=== PATIENT | male | born 1945 | race Caucasian/White ===

== ENCOUNTER 2017-06-11 14:40 | Emergency (ER) | payer MEDICARE, OTHER ==
[2017-06-11] MEDS ORDERED: Ketorolac 30 MG/ML SDV ONE (15:15)
[2017-06-11] MEDS ORDERED: Ketorolac 30 MG/ML SDV IVPUSH ONE (15:23)
--- NOTE | 2017-06-11 15:30 | EDM.PDOC ---
[id number] 4d LT FLANK PAIN Time Seen by Provider: 06/11/17 15:05 Source of Information: Reports: Patient, Provider History Limitations: Reports: No Limitations - History of Present Illness INITIAL COMMENTS - FREE TEXT/NARRATIVE: 71-year-old male with apparently a past history of renal stones developed a fairly sudden onset of left flank pain at 4 AM. He's had nausea but no vomiting , the pain is been persistent and throbbing so he went into the clinic today. They wanted to order a CT scan but he wanted pain control first, they said they were unable to do that so they sent him to the emergency room. He is stable but uncomfortable. He looks pale. [facility] is a [facility]" Onset: Sudden Duration: Hour(s): (11 hours ago) Location: Reports: Back (Left flank) Left Flank Pain Score (Numeric/FACES): 8 - Related Data Allergies Allergy/AdvReac Type Severity Reaction Status Date / Time No Known Allergies Allergy Verified 05/28/15 19:24 Home Meds: Home Meds Albuterol Sulfate [Albuterol Sulfate HFA] 2 ea IH ASDIRECTED 08/02/14 [History] ClonazePAM [KlonoPIN] 1 mg PO ASDIRECTED PRN 08/02/14 [History] Methocarbamol 750 mg PO TID 08/02/14 [History] Potassium Chloride 20 meq PO BID 08/02/14 [History] Ranitidine [Zantac] 150 mg PO BID 08/02/14 [History] Simvastatin [Zocor] 5 mg PO DAILY 08/02/14 [History] Gabapentin [Neurontin] 300 mg PO TID 05/28/15 [History] Hydrochlorothiazide 25 mg PO DAILY 05/28/15 [History] Hydrocodone/Acetaminophen [[place] 10-325] 1 tab PO Q8H PRN 05/28/15 [History] Lisinopril 10 mg PO PCBREAKFAST 05/28/15 [History] Sertraline [Zoloft] 450 tab PO DAILY 05/28/15 [History] Ca Carbonate/Vitamin D3/Vit K [Calcium + D Soft Chewable Tab] 2 tab PO BID 06/11 [History] Calcium Carbonate [Tums] 200 mg PO ASDIRECTED 06/11/17 [History] Cholecalciferol (Vitamin D3) [Vitamin D3] 1,000 unit PO BID 06/11/17 [History] Finasteride 5 mg PO DAILY 06/11/17 [History] Fluticasone/Salmeterol [Advair Diskus 500-50] 1 puff INH Q12H 06/11/17 [History] NIFEdipine [Nifedipine ER] 60 mg PO BID 06/11/17 [History] Tamsulosin HCl [Flomax] 0.4 mg PO DAILY 06/11/17 [History] hydrOXYzine HCl [hydrOXYzine] 50 mg PO ASDIRECTED PRN 06/11/17 [History] Past Medical History HEENT History: Reports: Hard of Hearing, Impaired Vision Cardiovascular History: Reports: Heart Failure, Hypertension Other Respiratory History: Surgery llower lung removal. Genitourinary History: Reports: Renal Disease Other Genitourinary History: loss of bladder control. Musculoskeletal History: Reports: Osteoarthritis Endocrine/Metabolic History: Reports: Diabetes, Type II Social & Family History - Tobacco Use Smoking Status *Q: Never Smoker Years of Tobacco use: 45 Used Tobacco, but Quit: Yes Month Tobacco Last Used: april Second Hand Smoke Exposure: No - Caffeine Use Caffeine Use: Reports: None - Alcohol Use Days Per Week of Alcohol Use: 0 - Recreational Drug Use Recreational Drug Use: No ED ROS GENERAL - Review of Systems Review Of Systems: See Below Constitutional: Denies: Fever HEENT: Reports: No Symptoms Respiratory: Denies: Shortness of Breath, Pleuritic Chest Pain Cardiovascular: Denies: Chest Pain, Palpitations GI/Abdominal: Reports: Abdominal Pain (Some pain radiates around to the anterior abdomen) : Reports: Flank Pain. Denies: Frequency Neurological: Denies: Headache Psychiatric: Reports: No Symptoms ED EXAM, GENERAL - Physical Exam Exam: See Below Exam Limited By: No Limitations General Appearance: Alert, Anxious, Mild Distress (Patient was uncomfortable on presentation) Respiratory/Chest: No Respiratory Distress, Lungs Clear, Decreased Breath Sounds (Diffuse decreased breath sounds, chronic finding) Cardiovascular: Regular Rate, Rhythm GI/Abdominal: Non-Tender Neurological: Alert Psychiatric: Anxious Skin Exam: Warm, Dry Course - Vital Signs Last Recorded V/S: Last Vital Signs Temp 98.6 F 06/11/17 14:57 Pulse 85 06/11/17 16:37 Resp 20 06/11/17 16:37 BP 130/81 06/11/17 16:37 Pulse Ox 93 L 06/11/17 16:37 - Orders/Labs/Meds Labs: Laboratory Tests 06/11/17 06/11/17 Range/Units 16:02 16:02 WBC 11.6 H (4.5-11.0) K/uL RBC 4.80 (4.30-5.90) M/uL Hgb 14.3 D (12.0-15.0) g/dL Hct 41.7 (40.0-54.0) % MCV 87 (80-98) fL MCH 30 (27-31) pg MCHC 34 (32-36) % Plt Count 291 (150-400) K/uL Neut % (Auto) 87 H (36-66) % Lymph % (Auto) 7 L (24-44) % Rich % (Auto) 6 (2-6) % Eos % (Auto) 0 L (2-4) % Baso % (Auto) 0 (0-1) % Sodium 140 (140-148) mmol/L Potassium 3.7 (3.6-5.2) mmol/L Chloride 104 (100-108) mmol/L Carbon Dioxide 27 (21-32) mmol/L Anion Gap 8.9 (5.0-14.0) mmol/L BUN 19 H (7-18) mg/dL Creatinine 2.1 H D (0.8-1.3) mg/dL Est Cr Clr Drug Dosing 34.36 mL/min Estimated GFR (MDRD) 31 L (>60) Glucose 121 H (74-106) mg/dL Calcium 10.1 (8.5-10.1) mg/dL Meds: Medications Discontinued Medications Generic Name Dose Route Start Last Admin Trade Name Freq PRN Reason Stop Dose Admin Ketorolac Tromethamine Confirm 06/11/17 15:15 06/11/17 15:30 Toradol Administered 06/11/17 15:16 Not Given Dose 30 mg .ROUTE .STK-MED ONE Ketorolac Tromethamine 30 mg 06/11/17 15:23 06/11/17 15:30 Toradol IVPUSH 06/11/17 15:24 30 mg ONETIME ONE Administration - Re-Assessments/Exams Free Text/Narrative Re-Assessment/Exam: 06/11/17 15:29 An IV was started, the patient was given 30 mg of Toradol IV and he was sent back for an abdomen and pelvis CT without contrast. 06/11/17 15:53 After 30 mg of Toradol the patient had markedly less pain. 06/11/17 16:38 CT scan confirmed a 6 mm stone in the proximal left ureter. The patient's symptoms were almost gone after the scan. He wanted to try to pass this as an outpatient, so he was given 10 doses of Toradol to take twice a day through the weekend. His white count was 11,500, creatinine 2.1, copies of his labs and CT scan were given to the patient as he was [facility] [place] [facility] wors[facility]. I told him to make sure he takes the lab and x- ray with so they can compare if necessary. Departure - Departure Time of Disposition: 17:05 Disposition: Home, Self-Care 01 Condition: Fair Clinical Impression: Renal colic on left side, Left nephrolithiasis, COLD, Chronic obstructive lung disease - Discharge Information Instructions: Renal Colic, [id number], Kidney Stones, [id number], Chronic Obstructive Pulmonary Disease, [id number] Referrals: PCP,None [Primary Care Provider] - Forms: ED Department Discharge Care Plan Goals: Continue your current medications, and take ketorolac 10 mg twice daily until the stone passes but no more than the next 5 days. Return to ER or go directly to [place] if pain persists, especially if it worsens or you develop a fever.
[2017-06-11 16:38] VITALS: BP 130/81
== END 2017-06-11 17:04 | disposition home or self-care (01) ==
LOC: JP.ED 14:40
DX: N13.2 Hydronephrosis with renal and ureteral calculous obstruction (principal); N23 Unspecified renal colic; J00 Acute nasopharyngitis [common cold]; J44.9 Chronic obstructive pulmonary disease, unspecified; I11.0 Hypertensive heart disease with heart failure; I50.9 Heart failure, unspecified; E11.9 Type 2 diabetes mellitus without complications; M19.90 Unspecified osteoarthritis, unspecified site; Z98.890 Other specified postprocedural states; Z79.899 Other long term (current) drug therapy
CPT/HCPCS: 36415; 74176; 80048; 85025; 96374; 99284; J1885

== ENCOUNTER 2018-11-29 12:49 | Inpatient (IN) | payer MEDICARE ==
[~2018-11-29 12:49] MED LIST: Naloxone 0.4 MG/ML SDV ONE
[2018-11-29] MEDS ORDERED: Succinylcholine 200 MG/10 ML MDV ONE (12:52)
--- NOTE | 2018-11-29 12:59 | EDM.PDOC ---
ED HPI GENERAL MEDICAL PROBLEM - General Stated Complaint: [facility] Time Seen by Provider: 11/29/18 12:49 Source of Information: Reports: EMS History Limitations: Reports: Altered Mental Status, Respiratory Distress - History of Present Illness INITIAL COMMENTS - FREE TEXT/NARRATIVE: 73-year-old male found unresponsive on the toilet, hypoxic and cyanotic with decreased respiratory effort. EMS provided a DuoNeb in route which improved his saturations in mental status. He was still very obtunded on arrival to the emergency room. He would respond to painful stimulus only. A brief review of his home health notes indicates he is a full code, is on chronic narcotics and has Narcan as a when necessary med, so he was given 0.4 mg of IV Narcan. Also an urgent CT without contrast of his head was obtained. More history or review of systems is unobtainable. - Related Data Allergies Allergy/AdvReac Type Severity Reaction Status Date / Time horse serum proteins Allergy Rash Uncoded 11/29/18 13:32 Home Meds: Home Meds Albuterol Sulfate [Albuterol Sulfate HFA] 2 ea IH ASDIRECTED 08/02/14 [History] Methocarbamol 750 mg PO TID 08/02/14 [History] Potassium Chloride 20 meq PO BID 08/02/14 [History] Ranitidine [Zantac] 150 mg PO BID 08/02/14 [History] Simvastatin [Zocor] 5 mg PO DAILY 08/02/14 [History] Gabapentin [Neurontin] 300 mg PO TID 05/28/15 [History] Hydrochlorothiazide 25 mg PO DAILY 05/28/15 [History] Hydrocodone/Acetaminophen [[place] 10-325] 1 tab PO Q8H PRN 05/28/15 [History] Sertraline [Zoloft] 450 tab PO DAILY 05/28/15 [History] Ca Carbonate/Vitamin D3/Vit K [Calcium + D Soft Chewable Tab] 2 tab PO BID 06/11 [History] Calcium Carbonate [Tums] 200 mg PO ASDIRECTED 06/11/17 [History] Cholecalciferol (Vitamin D3) [Vitamin D3] 1,000 unit PO BID 06/11/17 [History] Finasteride 5 mg PO DAILY 06/11/17 [History] Fluticasone/Salmeterol [Advair Diskus 500-50] 1 puff INH Q12H 06/11/17 [History] NIFEdipine [Nifedipine ER] 60 mg PO BID 06/11/17 [History] Tamsulosin HCl [Flomax] 0.4 mg PO DAILY 06/11/17 [History] hydrOXYzine HCl [hydrOXYzine] 50 mg PO ASDIRECTED PRN 06/11/17 [History] Furosemide [Lasix] 10/09/18 [History] Naloxone HCl [Narcan] 10/09/18 [History] Omeprazole 10/09/18 [History] busPIRone [Buspar] 10/09/18 [History] guaiFENesin [Siltussin SA] 10/09/18 [History] Past Medical History HEENT History: Reports: Hard of Hearing, Impaired Vision Cardiovascular History: Reports: Heart Failure, Hypertension Other Respiratory History: Surgery llower lung removal. Genitourinary History: Reports: Renal Disease Other Genitourinary History: loss of bladder control. Musculoskeletal History: Reports: Osteoarthritis Endocrine/Metabolic History: Reports: Diabetes, Type II Social & Family History - Caffeine Use Caffeine Use: Reports: None ED ROS GENERAL - Review of Systems Review Of Systems: Unable To Obtain ED EXAM, GENERAL - Physical Exam Exam: See Below Exam Limited By: Altered Mental Status General Appearance: Lethargic, Other (Patient was responsive to painful stimulus but was unable to answer questions, was unaware of his surroundings) Eye Exam: Right Eye: PERRL (Pupils were equal and reactive, not pinpoint) Throat/Mouth: Other (No upper teeth) Head: Atraumatic Respiratory/Chest: Wheezing (Diffuse inspiratory and expiratory wheezes were present with bronchial rales bilaterally) Cardiovascular: Regular Rate, Rhythm, Tachycardia, Other (Heart sounds are distant) GI/Abdominal: Soft, Non-Tender, Other (No involuntary guarding) Extremities: Pedal Edema (1+ symmetric edema below the knees through the ankles and feet) Neurological: Inattentive, Unresponsive Skin Exam: Warm, Dry Course - Vital Signs Last Recorded V/S: Last Vital Signs Temp 96.7 F 11/29/18 16:00 Pulse 68 11/29/18 16:00 Resp 16 11/29/18 16:00 BP 130/81 11/29/18 16:00 Pulse Ox 91 L 11/29/18 16:00 - Orders/Labs/Meds Orders: Active Orders 24 hr Category Date Time Status Dietary Supplements [RC] BIDMEALS Care 11/29/18 13:27 Inactive Insert Urinary Catheter [OM.PC] Stat Care 11/29/18 13:44 Ordered Urinary Catheter Assessment [RC] ASDIRECTED Care 11/29/18 13:44 Active CULTURE RESPIRATORY + SMEAR [RM] Stat Lab 11/29/18 13:38 Results EKG 12 Lead [EK] Routine Ther 11/29/18 13:33 Stop Req Medication Orders Acetaminophen (Tylenol) 650 mg RECTAL Q4H PRN PRN Reason: Mild pain/fever Albuterol (Proventil Neb Soln) 2.5 mg NEB Q4H PRN PRN Reason: Shortness Of Breath/wheezing Albuterol/Ipratropium (Duoneb 3.0-0.5 Mg/3 Ml) 3 ml NEB QIDRT EVIN Last Admin: 11/29/18 16:09 Dose: 3 ml Enoxaparin Sodium (Lovenox) 40 mg SUBCUT DAILY [facility] Fentanyl (Sublimaze) 25 mcg IVPUSH Q2H PRN PRN Reason: Pain Ceftriaxone Sodium 2 gm/ (Sodium Chloride) 50 mls @ 100 mls/hr IV Q24H EVIN Ceftriaxone Sodium 1 gm/ (Sodium Chloride) 50 mls @ 100 mls/hr IV ONETIME ONE Stop: 11/30/18 01:29 Levofloxacin/Dextrose 750 mg/ (Premix) 150 mls @ 100 mls/hr IV Q48H [facility] Sodium Chloride (Normal Saline) 1,000 mls @ 125 mls/hr IV ASDIRECTED [facility] Propofol (Diprivan 100 Ml) 100 mls @ 2.898 mls/hr IV TITRATE EVIN; Protocol Last Admin: 11/29/18 15:49 Dose: 60 mcg/kg/min, 34.781 mls/hr Lorazepam (Ativan) 1 mg IVPUSH Q4H PRN PRN Reason: Agitation Methylprednisolone Sodium Succinate (Solu-Medrol) 62.5 mg IVPUSH Q8H EVIN Ondansetron HCl (Zofran Odt) 4 mg PO Q6H PRN PRN Reason: Nausea able to take PO Ondansetron HCl (Zofran) 4 mg IV Q6H PRN PRN Reason: Nausea/Vomiting Pantoprazole Sodium (Protonix Iv) 40 mg IV Q24H [facility] Last Admin: 11/29/18 16:08 Dose: 40 mg Polyethylene Glycol (Miralax) 17 gm PO DAILY PRN PRN Reason: Constipation Labs: Laboratory Tests 11/29/18 11/29/18 11/29/18 Range/Units 13:00 13:00 13:12 WBC 12.6 H (4.5-11.0) K/uL RBC 4.59 (4.30-5.90) M/uL Hgb 13.7 (12.0-15.0) g/dL Hct 41.8 (40.0-54.0) % MCV 91 (80-98) fL MCH 30 (27-31) pg MCHC 33 (32-36) % Plt Count 356 (150-400) K/uL Neut % (Auto) 81 H (36-66) % Lymph % (Auto) 7 L (24-44) % [place] % (Auto) 12 H (2-6) % Eos % (Auto) 1 L (2-4) % Baso % (Auto) 0 (0-1) % Puncture Site Lt radial ABG pH 7.253 L (7.350-7.450) ABG pCO2 65.7 H (35.0-42.0) mmHg ABG pO2 285.0 H (75.0-100.0) mmHg ABG HCO3 28.0 H (22.0-26.0) mmol/L ABG Total CO2 25.6 (23.0-27.0) mmol/L ABG O2 Saturation 99.5 H (95.0-98.0) % ABG O2 Content 20.0 (15.0-23.0) %vol ABG Base Excess -0.5 mm/L ABG Hemoglobin 14.1 (13.5-18.0) g/dL ABG Oxyhemoglobin 98.1 % ABG Carboxyhemoglobin 0.9 (0.0-1.6) % ABG Methemoglobin 0.5 % Harris Test Passed O2 Delivery Device Nasal cannula Oxygen Flow Rate 3 L Sodium (140-148) mmol/L Potassium (3.6-5.2) mmol/L Chloride (100-108) mmol/L Carbon Dioxide (21-32) mmol/L Anion Gap (5.0-14.0) mmol/L BUN (7-18) mg/dL Creatinine (0.8-1.3) mg/dL Est Cr Clr Drug Dosing mL/min Estimated GFR (MDRD) (>60) Glucose (74-106) mg/dL Calcium (8.5-10.1) mg/dL Total Bilirubin (0.2-1.0) mg/dL AST (15-37) U/L ALT (12-78) U/L Alkaline Phosphatase (46-116) U/L Troponin I < 0.017 (0.000-0.056) ng/mL Total Protein (6.4-8.2) g/dL Albumin (3.4-5.0) g/dL Globulin (2.3-3.5) g/dL Albumin/Globulin Ratio (1.2-2.2) Urine Color Urine Appearance Urine pH (4.5-8.0) Ur Specific [place] (1.008-1.030) Urine Protein (NEGATIVE) mg/dL Urine Glucose (UA) (NEGATIVE) mg/dL Urine Ketones (NEGATIVE) mg/dL Urine Occult Blood (NEGATIVE) Urine Nitrite (NEGAITVE) Urine Bilirubin (NEGATIVE) Urine Urobilinogen (NORMAL) mg/dL Ur Leukocyte Esterase (NEGATIVE) Urine RBC (0-5) Urine WBC (0-5) Ur Epithelial Cells Amorphous Sediment Urine Bacteria Urine Mucus Urine Other 11/29/18 11/29/18 Range/Units 13:12 13:23 WBC (4.5-11.0) K/uL RBC (4.30-5.90) M/uL Hgb (12.0-15.0) g/dL Hct (40.0-54.0) % MCV (80-98) fL MCH (27-31) pg MCHC (32-36) % Plt Count (150-400) K/uL Neut % (Auto) (36-66) % Lymph % (Auto) (24-44) % [place] % (Auto) (2-6) % Eos % (Auto) (2-4) % Baso % (Auto) (0-1) % Puncture Site ABG pH (7.350-7.450) ABG pCO2 (35.0-42.0) mmHg ABG pO2 (75.0-100.0) mmHg ABG HCO3 (22.0-26.0) mmol/L ABG Total CO2 (23.0-27.0) mmol/L ABG O2 Saturation (95.0-98.0) % ABG O2 Content (15.0-23.0) %vol ABG Base Excess mm/L ABG Hemoglobin (13.5-18.0) g/dL ABG Oxyhemoglobin % ABG Carboxyhemoglobin (0.0-1.6) % ABG Methemoglobin % Harris Test O2 Delivery Device Oxygen Flow Rate L Sodium 140 (140-148) mmol/L Potassium 4.5 (3.6-5.2) mmol/L Chloride 100 (100-108) mmol/L Carbon Dioxide 31 (21-32) mmol/L Anion Gap 8.9 (5.0-14.0) mmol/L BUN 20 H (7-18) mg/dL Creatinine 1.6 H (0.8-1.3) mg/dL Est Cr Clr Drug Dosing 45.13 mL/min Estimated GFR (MDRD) 43 L (>60) Glucose 88 (74-106) mg/dL Calcium 9.0 D (8.5-10.1) mg/dL Total Bilirubin 0.4 (0.2-1.0) mg/dL AST 30 (15-37) U/L ALT 29 (12-78) U/L Alkaline Phosphatase 99 (46-116) U/L Troponin I (0.000-0.056) ng/mL Total Protein 8.1 (6.4-8.2) g/dL Albumin 2.9 L (3.4-5.0) g/dL Globulin 5.2 H (2.3-3.5) g/dL Albumin/Globulin Ratio 0.6 L (1.2-2.2) Urine Color Yellow Urine Appearance Slightly cloudy Urine pH 5.0 (4.5-8.0) Ur Specific [place] 1.025 (1.008-1.030) Urine Protein 500 H (NEGATIVE) mg/dL Urine Glucose (UA) Normal (NEGATIVE) mg/dL Urine Ketones 50 H (NEGATIVE) mg/dL Urine Occult Blood Moderate (NEGATIVE) Urine Nitrite Negative (NEGAITVE) Urine Bilirubin Negative (NEGATIVE) Urine Urobilinogen Normal (NORMAL) mg/dL Ur Leukocyte Esterase Negative (NEGATIVE) Urine RBC 5-10 H (0-5) Urine WBC 0-5 (0-5) Ur Epithelial Cells Not seen Amorphous Sediment Moderate Urine Bacteria Not seen Urine Mucus Not seen Urine Other Meds: Medications Generic Name Dose Route Start Last Admin Trade Name Freq PRN Reason Stop Dose Admin Acetaminophen 650 mg 11/29/18 15:02 Tylenol RECTAL Q4H PRN Mild pain/fever Albuterol 2.5 mg 11/29/18 15:02 Proventil Neb Soln NEB Q4H PRN Shortness Of Breath/wheezing Albuterol/Ipratropium 3 ml 11/29/18 16:00 11/29/18 16:09 Duoneb 3.0-0.5 Mg/3 Ml NEB 3 ml QIDRT EVIN Administration Enoxaparin Sodium 40 mg 11/30/18 09:00 Lovenox SUBCUT DAILY [facility] Fentanyl 25 mcg 11/29/18 15:02 Sublimaze IVPUSH Q2H PRN Pain Ceftriaxone Sodium 2 gm/ 50 mls @ 100 mls/hr 11/30/18 13:00 Sodium Chloride IV Q24H EVIN Ceftriaxone Sodium 1 gm/ 50 mls @ 100 mls/hr 11/30/18 01:00 Sodium Chloride IV 11/30/18 01:29 ONETIME ONE Levofloxacin/Dextrose 750 mg/ 150 mls @ 100 mls/hr 12/01/18 14:00 Premix IV Q48H [facility] Sodium Chloride 1,000 mls @ 125 mls/hr 11/29/18 15:02 Normal Saline IV ASDIRECTED [facility] Propofol 100 mls @ 2.898 mls/hr 11/29/18 15:45 11/29/18 15:49 Diprivan 100 Ml IV 60 mcg/kg/min TITRATE EVIN 34.781 mls/hr Administration Protocol 5 MCG/KG/MIN Lorazepam 1 mg 11/29/18 15:02 Ativan IVPUSH Q4H PRN Agitation Methylprednisolone Sodium Succinate 62.5 mg 11/29/18 22:00 Solu-Medrol IVPUSH Q8H EVIN Ondansetron HCl 4 mg 11/29/18 15:02 Zofran Odt PO Q6H PRN Nausea able to take PO Ondansetron HCl 4 mg 11/29/18 15:02 Zofran IV Q6H PRN Nausea/Vomiting Pantoprazole Sodium 40 mg 11/29/18 16:00 11/29/18 16:08 Protonix Iv IV 40 mg Q24H EVIN Administration Polyethylene Glycol 17 gm 11/29/18 15:02 Miralax PO DAILY PRN Constipation Discontinued Medications Generic Name Dose Route Start Last Admin Trade Name Herbertq PRN Reason Stop Dose Admin Propofol 100 mls @ 3 mls/hr 11/29/18 13:15 11/29/18 13:42 Diprivan 100 Ml IV 11/29/18 17:55 60 mcg/kg/min TITRATE EVIN 33.84 mls/hr Titration Protocol 5 MCG/KG/MIN Propofol Confirm 11/29/18 13:00 11/29/18 13:31 Diprivan 100 Ml Administered 11/29/18 13:01 Not Given Dose 100 mls @ as directed .ROUTE .STK-MED ONE Levofloxacin/Dextrose 750 mg/ 150 mls @ 100 mls/hr 11/29/18 13:26 11/29/18 13 :34 Premix IV 11/29/18 14:55 100 mls/hr ONETIME ONE Administration Ceftriaxone Sodium 1 gm/ 50 mls @ 100 mls/hr 11/29/18 13:30 11/29/18 13:37 Sodium Chloride IV 11/29/18 13:59 100 mls/hr ONETIME ONE Administration Methylprednisolone Sodium Succinate 125 mg 11/29/18 15:30 11/29/18 15:51 Solu-Medrol IVPUSH 11/29/18 15:31 125 mg ONETIME ONE Administration Naloxone HCl 0.4 mg 11/29/18 13:04 11/29/18 12:49 Narcan IVPUSH 0.4 mg ONETIME PRN Administration unresponsiveness Succinylcholine Chloride 100 mg 11/29/18 13:02 11/29/18 12:54 Quelicin IV 11/29/18 13:03 100 mg ONETIME ONE Administration - Re-Assessments/Exams Free Text/Narrative Re-Assessment/Exam: 11/29/18 13:21 Patient had an urgent head CT which was negative, Narcan was ineffective so preparations for intubation were done because the patient is a full code. Initially a glide scope blade was attempted but he still had a gag reflex so was given 100 mg of succinylcholine. After 2 minutes intubation was reattempted and was successful with an 8.0 ET tube. A portable chest x-ray was obtained, blood gases CMP CBC and troponin drawn. He was started on a propofol drip for sedation. Portable chest revealed patchy left-sided infiltrates presumed to be pneumonia, in combination with purulent yellow sputum production from the trachea into the ET tube. This was suctioned and cultured. 11/29/18 13:27 ABGs confirmed hypercarbia with a PCO2 of 65.7. PH was low at 7.25. 11/29/18 13:27 After the sputum culture was obtained, 1 g of Rocephin along with 750 mg of IV Levaquin were started IV. 11/29/18 14:12 Brief hypotension after the propofol drip started, increased IV fluids for 20 minutes and repeat blood pressure revealed normalization. Fluids were then turned back down to [address] Jordan of the hospitalist service was consulted for treatment and admission in ICU for respiratory failure due to COPD exacerbation and pneumonia. Departure - Departure Time of Disposition: 14:57 Disposition: Admitted As Inpatient 66 Condition: Poor Clinical Impression: COPD exacerbation, Pneumonia, Acute respiratory failure with hypoxia and hypercarbia - Discharge Information Critical Care Note - Critical Care Note Total Time (mins): 75 Comments: Critical care provided with endotracheal intubation and bedside treatment 75 minutes - My Orders Last 24 Hours: My Active Orders 11/29/18 13:27 Dietary Supplements [RC] BIDMEALS 11/29/18 13:33 EKG 12 Lead [EK] Routine 11/29/18 13:38 CULTURE RESPIRATORY + SMEAR [RM] Stat 11/29/18 13:44 Insert Urinary Catheter [OM.PC] Stat Urinary Catheter Assessment [RC] ASDIRECTED - Assessment/Plan Last 24 Hours: My Active Orders 11/29/18 13:27 Dietary Supplements [RC] BIDMEALS 11/29/18 13:33 EKG 12 Lead [EK] Routine 11/29/18 13:38 CULTURE RESPIRATORY + SMEAR [RM] Stat 11/29/18 13:44 Insert Urinary Catheter [OM.PC] Stat Urinary Catheter Assessment [RC] ASDIRECTED
[2018-11-29] MEDS ORDERED: Succinylcholine 200 MG/10 ML MDV IV ONE (13:02)
[2018-11-29] MEDS ORDERED: Naloxone 0.4 MG/ML SDV IVPUSH PRN (13:04)
[2018-11-29] MEDS ORDERED: Levofloxacin/Dextrose 5%-Water 750 MG in Premix Bag 1 BAG IV ONE (13:26)
[2018-11-29] MEDS ORDERED: cefTRIAXone 1 GM in Sodium Chloride 0.9% 50 ML IV ONE ×2 (13:26→13:30)
[2018-11-29] MEDS ORDERED: Sodium Chloride 0.9% 10 ML SDV IV SCH (13:45)
--- NOTE | 2018-11-29 14:03 | CT ---
Head wo Cont CLINICAL HISTORY: Unresponsive COMPARISON: None TECHNIQUE: Transverse scans were obtained from the base of the skull through the vertex without IV contrast on a multislice, multidetector CT scanner. Auto dosage reduction and iterative reconstruction techniques employed. FINDINGS: There is some vague low-attenuation in the right the parietal lobe posteriorly. This is likely related to some chronic ischemic microvascular changes. There is no mass effect or hemorrhage. The basal cisterns and sulci of the convexities are prominent. Ventricles are normal for age. IMPRESSION: Age-related atrophy Vague low-attenuation in the posterior right parietal lobe is likely related to chronic ischemic microvascular changes in the white matter No evidence of hemorrhage or mass effect
--- NOTE | 2018-11-29 14:05 | CR ---
CHEST: Portable CLINICAL HISTORY:Hypoxia, intubation COMPARISON:2018 FINDINGS: There is an endotracheal tube in the trachea. The tip is just above the dario. There is a diffuse left lung infiltrate. This is superimposed some generalized increased lung markings which is felt to be chronic. Impression: Endotracheal tube in the distal trachea just above the dario Diffuse left lung infiltrate superimposed over chronic lung changes
--- NOTE | 2018-11-29 14:21 | PCM.HP ---
H&P History of Present Illness - General Date of Service: 11/29/18 Admit Problem/Dx: Admission Diagnosis/Problem Admission Diagnosis/Problem Pneumonia Source of Information: Provider. No: Patient History Limitations: Reports: Altered Mental Status (intubated and sedated ) - History of Present Illness Initial Comments - Free Text/Narative: Kulwinder came to the emergency room by ambulance after his home health nurse found him sitting on the toilet unresponsive. He is intubated and sedated and unable to provide any history at this time. History is gathered from emergency room personnel. They report that paramedics noted he was very wheezy in route he did receive a DuoNeb. He was mostly unresponsive and did not respond to Narcan when he got here. He was promptly intubated. Blood gases suggested respiratory failure with hypoxia and hypercapnia. Chest x-ray suggested a left lung infiltrate. Antibiotics have been initiated. He will be admitted to the intensive care unit. - Related Data Allergies/Adverse Reactions: Allergies Allergy/AdvReac Type Severity Reaction Status Date / Time horse serum proteins Allergy Rash Uncoded 11/29/18 13:32 Home Medications: Home Meds Albuterol Sulfate [Albuterol Sulfate HFA] 2 ea IH ASDIRECTED 08/02/14 [History] Methocarbamol 750 mg PO TID 08/02/14 [History] Potassium Chloride 20 meq PO BID 08/02/14 [History] Ranitidine [Zantac] 150 mg PO BID 08/02/14 [History] Simvastatin [Zocor] 5 mg PO DAILY 08/02/14 [History] Gabapentin [Neurontin] 300 mg PO TID 05/28/15 [History] Hydrochlorothiazide 25 mg PO DAILY 05/28/15 [History] Hydrocodone/Acetaminophen [[place] 10-325] 1 tab PO Q8H PRN 05/28/15 [History] Sertraline [Zoloft] 450 tab PO DAILY 05/28/15 [History] Ca Carbonate/Vitamin D3/Vit K [Calcium + D Soft Chewable Tab] 2 tab PO BID 06/11 [History] Calcium Carbonate [Tums] 200 mg PO ASDIRECTED 06/11/17 [History] Cholecalciferol (Vitamin D3) [Vitamin D3] 1,000 unit PO BID 06/11/17 [History] Finasteride 5 mg PO DAILY 06/11/17 [History] Fluticasone/Salmeterol [Advair Diskus 500-50] 1 puff INH Q12H 06/11/17 [History] NIFEdipine [Nifedipine ER] 60 mg PO BID 06/11/17 [History] Tamsulosin HCl [Flomax] 0.4 mg PO DAILY 06/11/17 [History] hydrOXYzine HCl [hydrOXYzine] 50 mg PO ASDIRECTED PRN 06/11/17 [History] Furosemide [Lasix] 10/09/18 [History] Naloxone HCl [Narcan] 10/09/18 [History] Omeprazole 10/09/18 [History] busPIRone [Buspar] 10/09/18 [History] guaiFENesin [Siltussin SA] 10/09/18 [History] Past Medical History HEENT History: Reports: Hard of Hearing, Impaired Vision Cardiovascular History: Reports: Heart Failure, Hypertension Other Respiratory History: Surgery llower lung removal. Genitourinary History: Reports: Renal Disease Other Genitourinary History: loss of bladder control. Musculoskeletal History: Reports: Osteoarthritis Endocrine/Metabolic History: Reports: Diabetes, Type II - Infectious Disease History Infectious Disease History: Reports: Chicken Pox, Measles, Mumps Social & Family History - Family History Family Medical History: Unobtainable (intubated) - Tobacco Use Smoking Status *Q: Unknown Ever Smoked - Caffeine Use Caffeine Use: Reports: None - Alcohol Use Alcohol Use History: No H&P Review of Systems - Review of Systems: Review Of Systems: Unable To Obtain (intubated and sedated) Exam - Exam Exam: See Below - Vital Signs Vital Signs: Last Vital Signs Temp 36.2 C 11/29/18 12:50 Pulse 102 H 11/29/18 12:50 Resp 21 H 11/29/18 12:50 BP 147/93 H 11/29/18 12:50 Pulse Ox 87 L 11/29/18 12:50 Weight: 100 kg - Exam Quality Assessment: Supplemental Oxygen, Urinary Catheter General: No: Alert, Cooperative, Mild Distress HEENT: Conjunctiva Clear. No: Mucosa Moist & [place] (dry), Scleral Icterus Neck: Supple, Trachea Midline. No: Lymphadenopathy, Thyromegaly Lungs: Normal Respiratory Effort, Crackles (few left lung base) Cardiovascular: Regular Rhythm, Tachycardia GI/Abdominal Exam: Normal Bowel Sounds, Soft, Non-Tender Extremities: Pedal Edema. No: Increased Warmth Peripheral Pulses: 1+: Dorsalis Pedis (L), Dorsalis Pedis (R) Skin: Warm, Dry. No: Rash Neuro Extensive - Mental Status: No: Alert, Oriented x3 Neuro Extensive - Motor, Sensory, Reflexes: Other (intubated and sedated, unable to assess cranial nerves). No: Facial Palsy (R), Facial palsy (L), Tremor Psychiatric: No: Alert, Normal Affect, Agitated - Patient Data Lab Results Last 24 hrs: Laboratory Results - last 24 hr 11/29/18 11/29/18 11/29/18 Range/Units 13:00 13:00 13:12 WBC 12.6 H (4.5-11.0) K/uL RBC 4.59 (4.30-5.90) M/uL Hgb 13.7 (12.0-15.0) g/dL Hct 41.8 (40.0-54.0) % MCV 91 (80-98) fL MCH 30 (27-31) pg MCHC 33 (32-36) % Plt Count 356 (150-400) K/uL Neut % (Auto) 81 H (36-66) % Lymph % (Auto) 7 L (24-44) % [place] % (Auto) 12 H (2-6) % Eos % (Auto) 1 L (2-4) % Baso % (Auto) 0 (0-1) % Puncture Site Lt radial ABG pH 7.253 L (7.350-7.450) ABG pCO2 65.7 H (35.0-42.0) mmHg ABG pO2 285.0 H (75.0-100.0) mmHg ABG HCO3 28.0 H (22.0-26.0) mmol/L ABG Total CO2 25.6 (23.0-27.0) mmol/L ABG O2 Saturation 99.5 H (95.0-98.0) % ABG O2 Content 20.0 (15.0-23.0) %vol ABG Base Excess -0.5 mm/L ABG Hemoglobin 14.1 (13.5-18.0) g/dL ABG Oxyhemoglobin 98.1 % ABG Carboxyhemoglobin 0.9 (0.0-1.6) % ABG Methemoglobin 0.5 % Harris Test Passed O2 Delivery Device Nasal cannula Oxygen Flow Rate 3 L Sodium (140-148) mmol/L Potassium (3.6-5.2) mmol/L Chloride (100-108) mmol/L Carbon Dioxide (21-32) mmol/L Anion Gap (5.0-14.0) mmol/L BUN (7-18) mg/dL Creatinine (0.8-1.3) mg/dL Est Cr Clr Drug Dosing mL/min Estimated GFR (MDRD) (>60) Glucose (74-106) mg/dL Calcium (8.5-10.1) mg/dL Total Bilirubin (0.2-1.0) mg/dL AST (15-37) U/L ALT (12-78) U/L Alkaline Phosphatase (46-116) U/L Troponin I < 0.017 (0.000-0.056) ng/mL Total Protein (6.4-8.2) g/dL Albumin (3.4-5.0) g/dL Globulin (2.3-3.5) g/dL Albumin/Globulin Ratio (1.2-2.2) Urine Color Urine Appearance Urine pH (4.5-8.0) Ur Specific [place] (1.008-1.030) Urine Protein (NEGATIVE) mg/dL Urine Glucose (UA) (NEGATIVE) mg/dL Urine Ketones (NEGATIVE) mg/dL Urine Occult Blood (NEGATIVE) Urine Nitrite (NEGAITVE) Urine Bilirubin (NEGATIVE) Urine Urobilinogen (NORMAL) mg/dL Ur Leukocyte Esterase (NEGATIVE) Urine RBC (0-5) Urine WBC (0-5) Ur Epithelial Cells Amorphous Sediment Urine Bacteria Urine Mucus Urine Other 11/29/18 11/29/18 Range/Units 13:12 13:23 WBC (4.5-11.0) K/uL RBC (4.30-5.90) M/uL Hgb (12.0-15.0) g/dL Hct (40.0-54.0) % MCV (80-98) fL MCH (27-31) pg MCHC (32-36) % Plt Count (150-400) K/uL Neut % (Auto) (36-66) % Lymph % (Auto) (24-44) % [place] % (Auto) (2-6) % Eos % (Auto) (2-4) % Baso % (Auto) (0-1) % Puncture Site ABG pH (7.350-7.450) ABG pCO2 (35.0-42.0) mmHg ABG pO2 (75.0-100.0) mmHg ABG HCO3 (22.0-26.0) mmol/L ABG Total CO2 (23.0-27.0) mmol/L ABG O2 Saturation (95.0-98.0) % ABG O2 Content (15.0-23.0) %vol ABG Base Excess mm/L ABG Hemoglobin (13.5-18.0) g/dL ABG Oxyhemoglobin % ABG Carboxyhemoglobin (0.0-1.6) % ABG Methemoglobin % Harris Test O2 Delivery Device Oxygen Flow Rate L Sodium 140 (140-148) mmol/L Potassium 4.5 (3.6-5.2) mmol/L Chloride 100 (100-108) mmol/L Carbon Dioxide 31 (21-32) mmol/L Anion Gap 8.9 (5.0-14.0) mmol/L BUN 20 H (7-18) mg/dL Creatinine 1.6 H (0.8-1.3) mg/dL Est Cr Clr Drug Dosing 45.13 mL/min Estimated GFR (MDRD) 43 L (>60) Glucose 88 (74-106) mg/dL Calcium 9.0 D (8.5-10.1) mg/dL Total Bilirubin 0.4 (0.2-1.0) mg/dL AST 30 (15-37) U/L ALT 29 (12-78) U/L Alkaline Phosphatase 99 (46-116) U/L Troponin I (0.000-0.056) ng/mL Total Protein 8.1 (6.4-8.2) g/dL Albumin 2.9 L (3.4-5.0) g/dL Globulin 5.2 H (2.3-3.5) g/dL Albumin/Globulin Ratio 0.6 L (1.2-2.2) Urine Color Yellow Urine Appearance Slightly cloudy Urine pH 5.0 (4.5-8.0) Ur Specific [place] 1.025 (1.008-1.030) Urine Protein 500 H (NEGATIVE) mg/dL Urine Glucose (UA) Normal (NEGATIVE) mg/dL Urine Ketones 50 H (NEGATIVE) mg/dL Urine Occult Blood Moderate (NEGATIVE) Urine Nitrite Negative (NEGAITVE) Urine Bilirubin Negative (NEGATIVE) Urine Urobilinogen Normal (NORMAL) mg/dL Ur Leukocyte Esterase Negative (NEGATIVE) Urine RBC 5-10 H (0-5) Urine WBC 0-5 (0-5) Ur Epithelial Cells Not seen Amorphous Sediment Moderate Urine Bacteria Not seen Urine Mucus Not seen Urine Other Result Diagrams: 11/29/18 13:12 11/29/18 13:12 Melvin Results Last 24 hrs: Microbiology 11/29/18 13:38 Gram Stain - Final Endotrachael Aspirate Imaging Impressions Last 24 hrs: CXR - images personally reviewed - there appears to be a left lower lung infiltrate that was not visualized on CXR from Oct 03. Heart size is normal. No effusion. EKG INTERPRETATION EKG Date: 11/29/18 Rhythm: Other (sinus tachycardia) Rate (Beats/Min): [address]: Normal P-Wave: Present QRS: Wide (NSIVCD) ST-T: Normal QT: Normal *Q Meaningful Use (ADM) - VTE Risk Assess *Q Each Risk Factor Represents 1 Point: Obesity ( BMI > 25 kg/m2), Serious lung disease including pneumonia, Abnormal Pulmonary Function (COPD) Total Score 1 Point Risk Factors: 3 Each Risk Factor Represents 2 Points: Age 60 - 74 Years Total Score 2 Point Risk Factors: 2 Each Risk Factor Represents 3 Points: None Total Score 3 Point Risk Factors: 0 Each Risk Factor Represents 5 Points: None Total Score 5 Point Risk Factors: 0 Venous Thromboembolism Risk Factor Score *Q: 5 - Problem List (1) Pneumonia SNOMED Code(s): 788934164 ICD Code: J18.9 - PNEUMONIA, UNSPECIFIED ORGANISM Status: Acute Current Visit: Yes (2) Acute respiratory failure with hypoxia and hypercarbia SNOMED Code(s): 174446821 ICD Code: J96.01 - ACUTE RESPIRATORY FAILURE WITH HYPOXIA; J96.02 - ACUTE RESPIRATORY FAILURE WITH HYPERCAPNIA Status: Acute Current Visit: Yes (3) COPD exacerbation SNOMED Code(s): 066691595 ICD Code: J44.1 - CHRONIC OBSTRUCTIVE PULMONARY DISEASE W (ACUTE) EXACERBATION Status: Acute Current Visit: Yes (4) CKD (chronic kidney disease), stage III SNOMED Code(s): 458796846 ICD Code: N18.3 - CHRONIC KIDNEY DISEASE, STAGE 3 (MODERATE) Status: Chronic Current Visit: Yes Problem List Initiated/Reviewed/Updated: Yes Orders Last 24hrs: Active Orders 24 hr Category Date Time Status Patient Status Manage Transfer [TRANSFER] Routine ADT 11/29/18 13:59 Ordered Dietary Supplements [RC] BIDMEALS Care 11/29/18 13:27 Active EKG Documentation Completion [RC] ASDIRECTED Care 11/29/18 13:33 Active Insert Urinary Catheter [OM.PC] Stat Care 11/29/18 13:44 Ordered RASS Sedation Scale [RC] ASDIRECTED Care 11/29/18 13:02 Active Urinary Catheter Assessment [RC] ASDIRECTED Care 11/29/18 13:44 Active CULTURE RESPIRATORY + SMEAR [RM] Stat Lab 11/29/18 13:38 Results Levofloxacin/Dextrose 5%-Water [Levaquin in D5W 750 MG/ Med 11/29/18 13:26 Active 150 ML] 750 mg Premix Bag 1 bag IV ONETIME Propofol [Diprivan 100 ML] 100 ml Med 11/29/18 13:15 Active IV TITRATE Desired Level of Sedation (RASS) [AST] Click to Edit Oth 11/29/18 13:02 Ordered ED Rapid Sequence Intubation Reflex [OM.PC] Click to Oth 11/29/18 13:45 Ordered Edit Resuscitation Status Routine Resus Stat 11/29/18 14:01 Ordered EKG 12 Lead [EK] Routine Ther 11/29/18 13:33 Ordered Medication Orders Propofol (Diprivan 100 Ml) 100 mls @ 2.82 mls/hr IV TITRATE EVIN; Protocol Last Titration: 11/29/18 13:42 Dose: 60 mcg/kg/min, 33.84 mls/hr Admin: 11/29/18 13:00 Dose: 5 mcg/kg/min, 2.82 mls/hr Levofloxacin/Dextrose 750 mg/ (Premix) 150 mls @ 100 mls/hr IV ONETIME ONE Stop: 11/29/18 14:55 Last Admin: 11/29/18 13:34 Dose: 100 mls/hr Assessment/Plan Comment:: ASSESSMENT AND PLAN - Left upper lobe pneumonia - complicated by acute respiratory failure with both hypoxia and hypercapnia. Unclear how long he's been sick. He did require intubation because of his severe respiratory compromise and altered mental state. No evidence for sepsis at this time. Gram stain from sputum sample revealed gram-positive cocci and gram-positive rods. -Anabiotic coverage with levofloxacin and ceftriaxone -Mechanical ventilation with daily weaning trials -IV steroids -Scheduled and as needed nebulizers -Follow-up sputum culture COPD with acute exacerbation - significant wheezing noted on arrival, exacerbation likely secondary to infection as above. He is currently intubated and sedated. Respiratory status stable since intubation. -Management as above including steroids and nebulizers Stage III chronic kidney disease - creatinine near baseline at this time. -Gentle IV fluids Essential hypertension - unable to take medications at this time. Blood pressure normal at this time. Maintenance issues - - DVT prophylaxis - enoxaparin - GI prophylaxis - PPI - Nutrition - nothing by mouth - Mccall catheter - placed in the emergency room CODE STATUS - presumed to be full code, patient currently intubated Admission justification - This patient will be admitted for inpatient services and is medically appropriate meeting medical necessity for inpatient admission as outlined in my documentation. I reasonably expect the patient will require inpatient services that span a period time over 2 midnights. I reasonably expect this patient to be discharged or transferred within 96 hours [facility] Disposition - I would anticipate discharge home versus the long term after the hospital stay Primary care physician - [place] [facility] Aquiles Jordan M.D.
[2018-11-29] MEDS ORDERED: Ondansetron 4 MG Tab.DIS PO PRN (15:02)
[2018-11-29] MEDS ORDERED: Acetaminophen 650 MG Supp RECTAL PRN (15:02)
[2018-11-29] MEDS ORDERED: fentaNYL 100 MCG/2 ML SDV IVPUSH PRN (15:02)
[2018-11-29] MEDS ORDERED: Polyethylene Glycol 3350 Powder 17 GM Packet PO PRN (15:02)
[2018-11-29] MEDS ORDERED: methylPREDNISolone Sodium Succinate 125 MG/2 ML SDV IVPUSH ONE (15:30)
[2018-11-29] MEDS: Pantoprazole 40 MG Vial IV SCH (16:08)
[2018-11-29] MEDS: Albuterol/Ipratropium 3.0-0.5 MG/3 ML Neb Soln NEB SCH ×2 (16:09→20:25)
[2018-11-29] MEDS: Sodium Chloride 0.9% 1,000 ML IV SCH (19:57)
[2018-11-29] MEDS: methylPREDNISolone Sodium Succinate 125 MG/2 ML SDV IVPUSH SCH (22:00)
[2018-11-30] MEDS ORDERED: cefTRIAXone 1 GM in Sodium Chloride 0.9% 50 ML IV ONE (01:00)
[2018-11-30] MEDS: Sodium Chloride 0.9% 1,000 ML IV SCH (04:25)
[2018-11-30] MEDS: methylPREDNISolone Sodium Succinate 125 MG/2 ML SDV IVPUSH SCH ×3 (05:48→21:54)
[2018-11-30] MEDS ORDERED: hydrALAZINE 20 MG/ML SDV IVPUSH ONE (06:13)
[2018-11-30] MEDS: Albuterol/Ipratropium 3.0-0.5 MG/3 ML Neb Soln NEB SCH ×4 (07:02→21:54)
--- NOTE | 2018-11-30 08:40 | CR ---
CHEST: Portable CLINICAL HISTORY:Infiltrate COMPARISON:11/29/2018 FINDINGS: Endotracheal tube remains in the distal trachea proximally 1 cm from the dario. There is bilateral predominantly interstitial infiltrate which is superimposed over chronic lung changes. There is some clearing of the left lower lobe when compared to the prior study. There are atherosclerotic changes in the aorta. Impression: Bilateral predominantly interstitial infiltrate superimposed over chronic lung field changes Slight improvement in left lower lobe infiltrate seen on prior study. Endotracheal tube is low in the trachea approximately 1 cm from the dario
--- NOTE | 2018-11-30 09:35 | PCM.PN ---
- General Info Date of Service: 11/30/18 Subjective Update: Overnight the patient had some difficulty with accelerated hypertension though this did recover without the need for intervention. Blood pressure was high again this morning and he did receive some hydralazine. He was off sedation for couple of hours this morning but never really woke up. He was moving both arms and legs but not able to follow commands or performing purposeful movements. We had to stop the weaning trial because of significant agitation and hypertension. Prior to that he had been requiring fairly minimal ventilator support. Peak inspiratory pressure was in the low 20s. No fevers. Sputum culture still pending. Functional Status: Reports: Pain Controlled - Review of Systems General: Denies: Fever - Patient Data Vitals - Most Recent: Last Vital Signs Temp 36.8 C 11/30/18 08:00 Pulse 87 11/30/18 09:00 Resp 21 H 11/30/18 07:56 BP 176/91 H 11/30/18 09:00 Pulse Ox 93 L 11/30/18 07:56 Weight - Most Recent: 96.207 kg I&O - Last 24 Hours: Intake & Output 11/29/18 11/30/18 11/30/18 22:59 06:59 14:59 Intake Total 1078 1626 Output Total 500 625 Balance 578 1001 Lab Results Last 24 Hours: Laboratory Results - last 24 hr 11/29/18 11/29/18 11/29/18 Range/Units 13:00 13:00 13:12 WBC 12.6 H (4.5-11.0) K/uL RBC 4.59 (4.30-5.90) M/uL Hgb 13.7 (12.0-15.0) g/dL Hct 41.8 (40.0-54.0) % MCV 91 (80-98) fL MCH 30 (27-31) pg MCHC 33 (32-36) % Plt Count 356 (150-400) K/uL Neut % (Auto) 81 H (36-66) % Lymph % (Auto) 7 L (24-44) % Vernon % (Auto) 12 H (2-6) % Eos % (Auto) 1 L (2-4) % Baso % (Auto) 0 (0-1) % Puncture Site Lt radial ABG pH 7.253 L (7.350-7.450) ABG pCO2 65.7 H (35.0-42.0) mmHg ABG pO2 285.0 H (75.0-100.0) mmHg ABG HCO3 28.0 H (22.0-26.0) mmol/L ABG Total CO2 25.6 (23.0-27.0) mmol/L ABG O2 Saturation 99.5 H (95.0-98.0) % ABG O2 Content 20.0 (15.0-23.0) %vol ABG Base Excess -0.5 mm/L ABG Hemoglobin 14.1 (13.5-18.0) g/dL ABG Oxyhemoglobin 98.1 % ABG Carboxyhemoglobin 0.9 (0.0-1.6) % ABG Methemoglobin 0.5 % Harris Test Passed O2 Delivery Device Nasal cannula Oxygen Flow Rate 3 L Sodium (140-148) mmol/L Potassium (3.6-5.2) mmol/L Chloride (100-108) mmol/L Carbon Dioxide (21-32) mmol/L Anion Gap (5.0-14.0) mmol/L BUN (7-18) mg/dL Creatinine (0.8-1.3) mg/dL Est Cr Clr Drug Dosing mL/min Estimated GFR (MDRD) (>60) Glucose (74-106) mg/dL Calcium (8.5-10.1) mg/dL Magnesium (1.8-2.4) mg/dL Total Bilirubin (0.2-1.0) mg/dL AST (15-37) U/L ALT (12-78) U/L Alkaline Phosphatase (46-116) U/L Troponin I < 0.017 (0.000-0.056) ng/mL Total Protein (6.4-8.2) g/dL Albumin (3.4-5.0) g/dL Globulin (2.3-3.5) g/dL Albumin/Globulin Ratio (1.2-2.2) Urine Color Urine Appearance Urine pH (4.5-8.0) Ur Specific [place] (1.008-1.030) Urine Protein (NEGATIVE) mg/dL Urine Glucose (UA) (NEGATIVE) mg/dL Urine Ketones (NEGATIVE) mg/dL Urine Occult Blood (NEGATIVE) Urine Nitrite (NEGAITVE) Urine Bilirubin (NEGATIVE) Urine Urobilinogen (NORMAL) mg/dL Ur Leukocyte Esterase (NEGATIVE) Urine RBC (0-5) Urine WBC (0-5) Ur Epithelial Cells Amorphous Sediment Urine Bacteria Urine Mucus Urine Other 11/29/18 11/29/18 11/29/18 Range/Units 13:12 13:23 16:00 WBC (4.5-11.0) K/uL RBC (4.30-5.90) M/uL Hgb (12.0-15.0) g/dL Hct (40.0-54.0) % MCV (80-98) fL MCH (27-31) pg MCHC (32-36) % Plt Count (150-400) K/uL Neut % (Auto) (36-66) % Lymph % (Auto) (24-44) % Vernon % (Auto) (2-6) % Eos % (Auto) (2-4) % Baso % (Auto) (0-1) % Puncture Site Rt brachial ABG pH 7.378 (7.350-7.450) ABG pCO2 46.5 H (35.0-42.0) mmHg ABG pO2 60.2 L (75.0-100.0) mmHg ABG HCO3 26.8 H (22.0-26.0) mmol/L ABG Total CO2 24.4 (23.0-27.0) mmol/L ABG O2 Saturation 90.8 L (95.0-98.0) % ABG O2 Content 15.1 (15.0-23.0) %vol ABG Base Excess 1.7 mm/L ABG Hemoglobin 12.1 L (13.5-18.0) g/dL ABG Oxyhemoglobin 89.1 % ABG Carboxyhemoglobin 1.2 (0.0-1.6) % ABG Methemoglobin 0.7 % Harris Test Passed O2 Delivery Device Ventilator Oxygen Flow Rate L Sodium 140 (140-148) mmol/L Potassium 4.5 (3.6-5.2) mmol/L Chloride 100 (100-108) mmol/L Carbon Dioxide 31 (21-32) mmol/L Anion Gap 8.9 (5.0-14.0) mmol/L BUN 20 H (7-18) mg/dL Creatinine 1.6 H (0.8-1.3) mg/dL Est Cr Clr Drug Dosing 45.13 mL/min Estimated GFR (MDRD) 43 L (>60) Glucose 88 (74-106) mg/dL Calcium 9.0 D (8.5-10.1) mg/dL Magnesium (1.8-2.4) mg/dL Total Bilirubin 0.4 (0.2-1.0) mg/dL AST 30 (15-37) U/L ALT 29 (12-78) U/L Alkaline Phosphatase 99 (46-116) U/L Troponin I (0.000-0.056) ng/mL Total Protein 8.1 (6.4-8.2) g/dL Albumin 2.9 L (3.4-5.0) g/dL Globulin 5.2 H (2.3-3.5) g/dL Albumin/Globulin Ratio 0.6 L (1.2-2.2) Urine Color Yellow Urine Appearance Slightly cloudy Urine pH 5.0 (4.5-8.0) Ur Specific [place] 1.025 (1.008-1.030) Urine Protein 500 H (NEGATIVE) mg/dL Urine Glucose (UA) Normal (NEGATIVE) mg/dL Urine Ketones 50 H (NEGATIVE) mg/dL Urine Occult Blood Moderate (NEGATIVE) Urine Nitrite Negative (NEGAITVE) Urine Bilirubin Negative (NEGATIVE) Urine Urobilinogen Normal (NORMAL) mg/dL Ur Leukocyte Esterase Negative (NEGATIVE) Urine RBC 5-10 H (0-5) Urine WBC 0-5 (0-5) Ur Epithelial Cells Not seen Amorphous Sediment Moderate Urine Bacteria Not seen Urine Mucus Not seen Urine Other 11/30/18 11/30/18 11/30/18 Range/Units 04:00 04:00 05:11 WBC 9.8 (4.5-11.0) K/uL RBC 4.15 L (4.30-5.90) M/uL Hgb 12.7 (12.0-15.0) g/dL Hct 36.7 L (40.0-54.0) % MCV 88 (80-98) fL MCH 31 (27-31) pg MCHC 35 (32-36) % Plt Count 323 (150-400) K/uL Neut % (Auto) (36-66) % Lymph % (Auto) (24-44) % Vernon % (Auto) (2-6) % Eos % (Auto) (2-4) % Baso % (Auto) (0-1) % Puncture Site Lt radial ABG pH 7.384 (7.350-7.450) ABG pCO2 43.5 H (35.0-42.0) mmHg ABG pO2 65.0 L (75.0-100.0) mmHg ABG HCO3 25.4 (22.0-26.0) mmol/L ABG Total CO2 22.8 L (23.0-27.0) mmol/L ABG O2 Saturation 92.0 L (95.0-98.0) % ABG O2 Content 16.5 (15.0-23.0) %vol ABG Base Excess 0.7 mm/L ABG Hemoglobin 12.9 L (13.5-18.0) g/dL ABG Oxyhemoglobin 90.7 % ABG Carboxyhemoglobin 0.8 (0.0-1.6) % ABG Methemoglobin 0.6 % Harris Test Passed O2 Delivery Device Ventilator Oxygen Flow Rate L Sodium 140 (140-148) mmol/L Potassium 3.8 (3.6-5.2) mmol/L Chloride 104 (100-108) mmol/L Carbon Dioxide 26 (21-32) mmol/L Anion Gap 10.5 (5.0-14.0) mmol/L BUN 23 H (7-18) mg/dL Creatinine 1.3 (0.8-1.3) mg/dL Est Cr Clr Drug Dosing 55.55 mL/min Estimated GFR (MDRD) 54 L (>60) Glucose 158 H (74-106) mg/dL Calcium 9.2 (8.5-10.1) mg/dL Magnesium 1.8 (1.8-2.4) mg/dL Total Bilirubin (0.2-1.0) mg/dL AST (15-37) U/L ALT (12-78) U/L Alkaline Phosphatase (46-116) U/L Troponin I (0.000-0.056) ng/mL Total Protein (6.4-8.2) g/dL Albumin (3.4-5.0) g/dL Globulin (2.3-3.5) g/dL Albumin/Globulin Ratio (1.2-2.2) Urine Color Urine Appearance Urine pH (4.5-8.0) Ur Specific [place] (1.008-1.030) Urine Protein (NEGATIVE) mg/dL Urine Glucose (UA) (NEGATIVE) mg/dL Urine Ketones (NEGATIVE) mg/dL Urine Occult Blood (NEGATIVE) Urine Nitrite (NEGAITVE) Urine Bilirubin (NEGATIVE) Urine Urobilinogen (NORMAL) mg/dL Ur Leukocyte Esterase (NEGATIVE) Urine RBC (0-5) Urine WBC (0-5) Ur Epithelial Cells Amorphous Sediment Urine Bacteria Urine Mucus Urine Other Melvin Results Last 24 Hours: Microbiology 11/29/18 13:38 Gram Stain - Final Endotrachael Aspirate Med Orders - Current: Current Medications Acetaminophen (Tylenol) 650 mg RECTAL Q4H PRN PRN Reason: Mild pain/fever Albuterol (Proventil Neb Soln) 2.5 mg NEB Q4H PRN PRN Reason: Shortness Of Breath/wheezing Albuterol/Ipratropium (Duoneb 3.0-0.5 Mg/3 Ml) 3 ml NEB QIDRT [facility] Last Admin: 11/30/18 07:02 Dose: 3 ml Enoxaparin Sodium (Lovenox) 40 mg SUBCUT DAILY [facility] Fentanyl (Sublimaze) 25 mcg IVPUSH Q2H PRN PRN Reason: Pain Ceftriaxone Sodium 2 gm/ (Sodium Chloride) 50 mls @ 100 mls/hr IV Q24H [facility] Levofloxacin/Dextrose 750 mg/ (Premix) 150 mls @ 100 mls/hr IV Q48H [facility] Propofol (Diprivan 100 Ml) 100 mls @ 2.898 mls/hr IV TITRATE EVIN; Protocol Last Titration: 11/30/18 06:22 Dose: 15 mcg/kg/min, 8.695 mls/hr Potassium Chloride/Dextrose/Sod Cl (D5 Ns With 20 Meq Kcl) 1,000 mls @ 75 mls/ hr IV ASDIRECTED [facility] Lorazepam (Ativan) 1 mg IVPUSH Q4H PRN PRN Reason: Agitation Methylprednisolone Sodium Succinate (Solu-Medrol) 62.5 mg IVPUSH Q8H [facility] Last Admin: 11/30/18 05:48 Dose: 62.5 mg Ondansetron HCl (Zofran Odt) 4 mg PO Q6H PRN PRN Reason: Nausea able to take PO Ondansetron HCl (Zofran) 4 mg IV Q6H PRN PRN Reason: Nausea/Vomiting Pantoprazole Sodium (Protonix Iv) 40 mg IV Q24H [facility] Last Admin: 11/29/18 16:08 Dose: 40 mg Polyethylene Glycol (Miralax) 17 gm PO DAILY PRN PRN Reason: Constipation Discontinued Medications Hydralazine HCl (Apresoline) 10 mg IVPUSH ONETIME ONE Stop: 11/30/18 06:14 Last Admin: 11/30/18 06:26 Dose: 10 mg Propofol (Diprivan 100 Ml) 100 mls @ 3 mls/hr IV TITRATE EVIN; Protocol Stop: 11/29/18 17:55 Last Titration: 11/29/18 13:42 Dose: 60 mcg/kg/min, 33.84 mls/hr Propofol (Diprivan 100 Ml) Confirm Administered Dose 100 mls @ as directed .ROUTE .STK-MED ONE Stop: 11/29/18 13:01 Last Admin: 11/29/18 13:31 Dose: Not Given Levofloxacin/Dextrose 750 mg/ (Premix) 150 mls @ 100 mls/hr IV ONETIME ONE Stop: 11/29/18 14:55 Last Admin: 11/29/18 13:34 Dose: 100 mls/hr Ceftriaxone Sodium 1 gm/ (Sodium Chloride) 50 mls @ 100 mls/hr IV ONETIME ONE Stop: 11/29/18 13:59 Last Admin: 11/29/18 13:37 Dose: 100 mls/hr Ceftriaxone Sodium 1 gm/ (Sodium Chloride) 50 mls @ 100 mls/hr IV ONETIME ONE Stop: 11/30/18 01:29 Last Admin: 11/30/18 00:50 Dose: 100 mls/hr Sodium Chloride (Normal Saline) 1,000 mls @ 125 mls/hr IV ASDIRECTED [facility] Last Admin: 11/30/18 04:25 Dose: 125 mls/hr Methylprednisolone Sodium Succinate (Solu-Medrol) 125 mg IVPUSH ONETIME ONE Stop: 11/29/18 15:31 Last Admin: 11/29/18 15:51 Dose: 125 mg Naloxone HCl (Narcan) 0.4 mg IVPUSH ONETIME PRN PRN Reason: unresponsiveness Last Admin: 11/29/18 12:49 Dose: 0.4 mg Naloxone HCl (Narcan) Confirm Administered Dose 0.4 mg .ROUTE .STK-MED ONE Stop: 11/29/18 12:44 Succinylcholine Chloride (Quelicin) 100 mg IV ONETIME ONE Stop: 11/29/18 13:03 Last Admin: 11/29/18 12:54 Dose: 100 mg Succinylcholine Chloride (Quelicin) Confirm Administered Dose 200 mg .ROUTE .STK -MED ONE Stop: 11/29/18 12:53 - Exam Quality Assessment: Supplemental Oxygen General: No Acute Distress, Sedated. No: Alert, Cooperative HEENT: Pupils Equal Neck: Supple Lungs: Normal Respiratory Effort, Crackles (both bases, R>L). No: Wheezing Cardiovascular: Regular Rate, Regular Rhythm, No Murmurs GI/Abdominal Exam: Soft, No Distention, Abnormal Bowel Sounds (hypoactive) Extremities: Pedal Edema. No: Increased Warmth Skin: Warm, Dry Psy/Mental Status: No: Alert, Anxious, Agitated - Problem List & Annotations (1) Pneumonia SNOMED Code(s): 358087554 Code(s): J18.9 - PNEUMONIA, UNSPECIFIED ORGANISM Status: Acute Current Visit: Yes (2) Acute respiratory failure with hypoxia and hypercarbia SNOMED Code(s): 195815088 Code(s): J96.01 - ACUTE RESPIRATORY FAILURE WITH HYPOXIA; J96.02 - ACUTE RESPIRATORY FAILURE WITH HYPERCAPNIA Status: Acute Current Visit: Yes (3) COPD exacerbation SNOMED Code(s): 762953275 Code(s): J44.1 - CHRONIC OBSTRUCTIVE PULMONARY DISEASE W (ACUTE) EXACERBATION Status: Acute Current Visit: Yes (4) CKD (chronic kidney disease), stage III SNOMED Code(s): 816423078 Code(s): N18.3 - CHRONIC KIDNEY DISEASE, STAGE 3 (MODERATE) Status: Chronic Current Visit: Yes - Problem List Review Problem List Initiated/Reviewed/Updated: Yes - My Orders Last 24 Hours: My Active Orders 11/29/18 14:01 Resuscitation Status Routine 11/29/18 15:02 Patient Status [ADT] Routine Bedrest Bedside Commode [RC] ASDIRECTED Cardiac Monitoring [RC] Q6H Dietary Supplements [RC] BIDMEALS Intake and Output [RC] QSHIFT Mechanical Ventilation [RT Ventilator, Adult] [RC] Q2H Notify Provider Vital Signs [RC] ASDIRECTED Oxygen Therapy [RC] PRN Pulse Oximetry [RC] CONTINUOUS RASS Sedation Scale [RC] Q4H RT Aerosol Therapy [RC] ASDIRECTED VTE/DVT Education [RC] .PRN Vital Signs [RC] Q1HR Acetaminophen [Tylenol] 650 mg RECTAL Q4H PRN Albuterol [Proventil Neb Soln] 2.5 mg NEB Q4H PRN LORazepam [Ativan] 1 mg IVPUSH Q4H PRN Ondansetron [Zofran ODT] 4 mg PO Q6H PRN Ondansetron [Zofran] 4 mg IV Q6H PRN Polyethylene Glycol 3350 [MiraLAX] 17 gm PO DAILY PRN fentaNYL [Sublimaze] 25 mcg IVPUSH Q2H PRN Desired Level of Sedation (RASS) [AST] Click to Edit Oral Care [OM.PC] Routine Restraint Initiate Non-VIOL/Non-SD [OM.PC] Routine 11/29/18 15:45 Propofol [Diprivan 100 ML] 100 ml IV TITRATE 11/29/18 16:00 Albuterol/Ipratropium [DuoNeb 3.0-0.5 MG/3 ML] 3 ml NEB QIDRT Pantoprazole [ProTONIX IV] 40 mg IV Q24H 11/29/18 22:00 methylPREDNISolone Sod Succ [Solu-MEDROL] 62.5 mg IVPUSH Q8H 11/29/18 Dinner Nothing per Oral Now Diet [DIET] 11/30/18 07:00 RT Ventilator Weaning [RC] DAILY Daily Awakening Trial [OM.PC] DAILY 11/30/18 09:00 Enoxaparin [Lovenox] 40 mg SUBCUT DAILY 11/30/18 09:45 Dextrose 5%-Normal Saline with KCl 20 mEq @ 75 mL/Hr (1000 mL) Dextrose 5%-0.9 % NaCl with KCl [D5 NS with 20 mEq KCl] 1,000 ml IV ASDIRECTED 11/30/18 13:00 cefTRIAXone [Rocephin] 2 gm Sodium Chloride 0.9% [Normal Saline] 50 ml IV Q24H 12/01/18 05:00 Chest 1V Frontal [CR] Timed BASIC METABOLIC PANEL,BMP [CHEM] Timed BLOOD GAS ARTERIAL [BG] Timed CBC W/O DIFF,HEMOGRAM [HEME] Timed (1) 12/01/18 07:00 Daily Awakening Trial [OM.PC] DAILY 12/01/18 14:00 Levofloxacin/Dextrose 5%-Water [Levaquin in D5W 750 MG/150 ML] 750 mg Premix Bag 1 bag IV Q48H - Plan Plan:: ASSESSMENT AND PLAN - Left upper lobe pneumonia - complicated by acute respiratory failure with both hypoxia and hypercapnia. Still intubated and sedated. Did not do very well with a weaning trial this morning. Chest x-ray appears a little bit more clear today. -Antibiotic coverage with levofloxacin and ceftriaxone -Mechanical ventilation with daily weaning trials -IV steroids -Scheduled and as needed nebulizers -Follow-up sputum culture COPD with acute exacerbation - Respiratory status stable since intubation. PCO2 has improved significantly but not quite normalized. PH is normal. -Management as above including steroids and nebulizers Stage III chronic kidney disease - creatinine has returned to baseline. -Gentle IV fluids (D5 NS w/K+) Essential hypertension - unable to take medications at this time. Blood pressure moderately elevated for the most part but occasionally more significantly elevated. Has been responding to hydralazine so far. Maintenance issues - - DVT prophylaxis - enoxaparin - GI prophylaxis - PPI - Nutrition - nothing by mouth - Mccall catheter - placed in the emergency room, needs to remain in place in this critical patient Disposition - I would anticipate discharge home versus the half-way after the hospital stay Primary care physician - [facility] system Aquiles Jordan M.D.
[2018-11-30] MEDS: Enoxaparin 40 MG/0.4 ML Syringe SUBCUT SCH (09:48)
[2018-11-30] MEDS: Dextrose 5%-0.9% NaCl with KCl 1,000 ML IV SCH (12:28)
[2018-11-30] MEDS: cefTRIAXone 2 GM in Sodium Chloride 0.9% 50 ML IV SCH (13:05)
[2018-11-30] MEDS: Levofloxacin/Dextrose 5%-Water 750 MG in Premix Bag 1 BAG IV SCH (14:47)
[2018-11-30] MEDS: Pantoprazole 40 MG Vial IV SCH (15:55)
[2018-11-30] MEDS: hydrALAZINE 20 MG/ML SDV IVPUSH PRN (17:43)
[2018-12-01] MEDS: Dextrose 5%-0.9% NaCl with KCl 1,000 ML IV SCH ×2 (02:20→15:07)
[2018-12-01] MEDS: hydrALAZINE 20 MG/ML SDV IVPUSH PRN ×3 (02:23→17:27)
[2018-12-01] MEDS: methylPREDNISolone Sodium Succinate 125 MG/2 ML SDV IVPUSH SCH ×3 (06:38→22:30)
[2018-12-01] MEDS: Albuterol/Ipratropium 3.0-0.5 MG/3 ML Neb Soln NEB SCH ×4 (07:41→21:28)
--- NOTE | 2018-12-01 09:03 | CR ---
CHEST: Portable CLINICAL HISTORY:Pneumonia COMPARISON:11/30/2018 FINDINGS: There is persistent increased interstitial density in the left lung compared to right. Pattern is similar to prior study. The endotracheal tube remains in the distal trachea. Impression: Persistent interstitial-type infiltrate in the left lung. This is superimposed over chronic lung changes. Findings are similar to prior studies Endotracheal tube in the distal trachea.
--- NOTE | 2018-12-01 09:13 | PCM.PN ---
- General Info Date of Service: 12/01/18 Subjective Update: Intermittent difficulties with hypertension requiring as needed hydralazine but no significant acute issues overnight. He remains intubated and was sedated overnight. Sedation stop this morning for about one hour. Patient was unable to follow commands. He was moving hands and feet some but no purposeful movements. After about 1 hour off of sedation he became agitated with tachycardia, hypertension and increased respiratory rate so he was re-sedated. We did perform a head CT which did not show any acute changes. He has not had significant fevers but had a low-grade fever this morning. - Review of Systems General: Denies: Fever - Patient Data Vitals - Most Recent: Last Vital Signs Temp 36.8 C 12/01/18 07:28 Pulse 77 12/01/18 07:41 Resp 17 12/01/18 07:28 BP 166/82 H 12/01/18 07:28 Pulse Ox 92 L 12/01/18 07:41 Weight - Most Recent: 96.207 kg I&O - Last 24 Hours: Intake & Output 11/30/18 12/01/18 12/01/18 22:59 06:59 14:59 Intake Total 1660 1340 Output Total 750 320 Balance 910 1020 Lab Results Last 24 Hours: Laboratory Results - last 24 hr 12/01/18 12/01/18 12/01/18 Range/Units 05:00 05:00 05:58 WBC 12.4 H (4.5-11.0) K/uL RBC 4.15 L (4.30-5.90) M/uL Hgb 12.3 (12.0-15.0) g/dL Hct 37.3 L (40.0-54.0) % MCV 90 (80-98) fL MCH 30 (27-31) pg MCHC 33 (32-36) % Plt Count 326 (150-400) K/uL Puncture Site Rt radial ABG pH 7.447 (7.350-7.450) ABG pCO2 37.8 (35.0-42.0) mmHg ABG pO2 84.0 (75.0-100.0) mmHg ABG HCO3 25.7 (22.0-26.0) mmol/L ABG Total CO2 22.8 L (23.0-27.0) mmol/L ABG O2 Saturation 96.7 (95.0-98.0) % ABG O2 Content 16.8 (15.0-23.0) %vol ABG Base Excess 2.2 mm/L ABG Hemoglobin 12.5 L (13.5-18.0) g/dL ABG Oxyhemoglobin 94.9 % ABG Carboxyhemoglobin 1.2 (0.0-1.6) % ABG Methemoglobin 0.7 % Harris Test Passed O2 Delivery Device Ventilator Oxygen Flow Rate L Sodium 143 (140-148) mmol/L Potassium 3.7 (3.6-5.2) mmol/L Chloride 109 H (100-108) mmol/L Carbon Dioxide 28 (21-32) mmol/L Anion Gap 9.7 (5.0-14.0) mmol/L BUN 23 H (7-18) mg/dL Creatinine 1.3 (0.8-1.3) mg/dL Est Cr Clr Drug Dosing 55.62 mL/min Estimated GFR (MDRD) 54 L (>60) Glucose 188 H (74-106) mg/dL Calcium 8.6 (8.5-10.1) mg/dL Melvin Results Last 24 Hours: Microbiology 11/29/18 13:38 Gram Stain - Final Endotrachael Aspirate Respiratory Culture - Preliminary Med Orders - Current: Current Medications Acetaminophen (Tylenol) 650 mg RECTAL Q4H PRN PRN Reason: Mild pain/fever Albuterol (Proventil Neb Soln) 2.5 mg NEB Q4H PRN PRN Reason: Shortness Of Breath/wheezing Albuterol/Ipratropium (Duoneb 3.0-0.5 Mg/3 Ml) 3 ml NEB QIDRT [facility] Last Admin: 12/01/18 07:41 Dose: 3 ml Enoxaparin Sodium (Lovenox) 40 mg SUBCUT DAILY [facility] Last Admin: 11/30/18 09:48 Dose: 40 mg Fentanyl (Sublimaze) 25 mcg IVPUSH Q2H PRN PRN Reason: Pain Hydralazine HCl (Apresoline) 10 mg IVPUSH Q4H PRN PRN Reason: Hypertension Last Admin: 12/01/18 02:23 Dose: 10 mg Ceftriaxone Sodium 2 gm/ (Sodium Chloride) 50 mls @ 100 mls/hr IV Q24H [facility] Last Admin: 11/30/18 13:05 Dose: 100 mls/hr Propofol (Diprivan 100 Ml) 100 mls @ 2.898 mls/hr IV TITRATE [facility]; Protocol Last Admin: 12/01/18 06:59 Dose: 45 mcg/kg/min, 26.086 mls/hr Potassium Chloride/Dextrose/Sod Cl (D5 Ns With 20 Meq Kcl) 1,000 mls @ 75 mls/ hr IV ASDIRECTED [facility] Last Admin: 12/01/18 02:20 Dose: 75 mls/hr Levofloxacin/Dextrose 750 mg/ (Premix) 150 mls @ 100 mls/hr IV Q24H [facility] Last Admin: 11/30/18 14:47 Dose: 100 mls/hr Lorazepam (Ativan) 1 mg IVPUSH Q4H PRN PRN Reason: Agitation Methylprednisolone Sodium Succinate (Solu-Medrol) 62.5 mg IVPUSH Q8H [facility] Last Admin: 12/01/18 06:38 Dose: 62.5 mg Ondansetron HCl (Zofran Odt) 4 mg PO Q6H PRN PRN Reason: Nausea able to take PO Ondansetron HCl (Zofran) 4 mg IV Q6H PRN PRN Reason: Nausea/Vomiting Pantoprazole Sodium (Protonix Iv) 40 mg IV Q24H [facility] Last Admin: 11/30/18 15:55 Dose: 40 mg Polyethylene Glycol (Miralax) 17 gm PO DAILY PRN PRN Reason: Constipation Discontinued Medications Hydralazine HCl (Apresoline) 10 mg IVPUSH ONETIME ONE Stop: 11/30/18 06:14 Last Admin: 11/30/18 06:26 Dose: 10 mg Propofol (Diprivan 100 Ml) 100 mls @ 3 mls/hr IV TITRATE [facility]; Protocol Stop: 11/29/18 17:55 Last Titration: 11/29/18 13:42 Dose: 60 mcg/kg/min, 33.84 mls/hr Propofol (Diprivan 100 Ml) Confirm Administered Dose 100 mls @ as directed .ROUTE .STK-MED ONE Stop: 11/29/18 13:01 Last Admin: 11/29/18 13:31 Dose: Not Given Levofloxacin/Dextrose 750 mg/ (Premix) 150 mls @ 100 mls/hr IV ONETIME ONE Stop: 11/29/18 14:55 Last Admin: 11/29/18 13:34 Dose: 100 mls/hr Ceftriaxone Sodium 1 gm/ (Sodium Chloride) 50 mls @ 100 mls/hr IV ONETIME ONE Stop: 11/29/18 13:59 Last Admin: 11/29/18 13:37 Dose: 100 mls/hr Ceftriaxone Sodium 1 gm/ (Sodium Chloride) 50 mls @ 100 mls/hr IV ONETIME ONE Stop: 11/30/18 01:29 Last Admin: 11/30/18 00:50 Dose: 100 mls/hr Levofloxacin/Dextrose 750 mg/ (Premix) 150 mls @ 100 mls/hr IV Q48H [facility] Sodium Chloride (Normal Saline) 1,000 mls @ 125 mls/hr IV ASDIRECTED [facility] Last Admin: 11/30/18 04:25 Dose: 125 mls/hr Methylprednisolone Sodium Succinate (Solu-Medrol) 125 mg IVPUSH ONETIME ONE Stop: 11/29/18 15:31 Last Admin: 11/29/18 15:51 Dose: 125 mg Naloxone HCl (Narcan) 0.4 mg IVPUSH ONETIME PRN PRN Reason: unresponsiveness Last Admin: 11/29/18 12:49 Dose: 0.4 mg Naloxone HCl (Narcan) Confirm Administered Dose 0.4 mg .ROUTE .STK-MED ONE Stop: 11/29/18 12:44 Last Admin: 11/30/18 19:23 Dose: Not Given Succinylcholine Chloride (Quelicin) 100 mg IV ONETIME ONE Stop: 11/29/18 13:03 Last Admin: 11/29/18 12:54 Dose: 100 mg Succinylcholine Chloride (Quelicin) Confirm Administered Dose 200 mg .ROUTE .STK -MED ONE Stop: 11/29/18 12:53 Last Admin: 11/30/18 19:23 Dose: Not Given - Exam Quality Assessment: Supplemental Oxygen, Urine Catheter, DVT Prophylaxis, Restraints General: Mild Distress. No: Alert HEENT: Pupils Equal, Pupils Reactive Neck: Supple, Trachea Midline Lungs: Crackles (both bases), Wheezing (mild expiratory ). No: Normal Respiratory Effort (increased work of breathing ) Cardiovascular: Regular Rhythm, Tachycardia GI/Abdominal Exam: Normal Bowel Sounds, Soft, Non-Tender, No Distention Extremities: Pedal Edema. No: Increased Warmth Skin: Warm, Dry Psy/Mental Status: Agitated (sedation off for breathing trial ). No: Alert - Problem List & Annotations (1) Pneumonia SNOMED Code(s): 094208736 Code(s): J18.9 - PNEUMONIA, UNSPECIFIED ORGANISM Status: Acute Current Visit: Yes (2) Acute respiratory failure with hypoxia and hypercarbia SNOMED Code(s): 947490551 Code(s): J96.01 - ACUTE RESPIRATORY FAILURE WITH HYPOXIA; J96.02 - ACUTE RESPIRATORY FAILURE WITH HYPERCAPNIA Status: Acute Current Visit: Yes (3) COPD exacerbation SNOMED Code(s): 142977365 Code(s): J44.1 - CHRONIC OBSTRUCTIVE PULMONARY DISEASE W (ACUTE) EXACERBATION Status: Acute Current Visit: Yes (4) CKD (chronic kidney disease), stage III SNOMED Code(s): 072280824 Code(s): N18.3 - CHRONIC KIDNEY DISEASE, STAGE 3 (MODERATE) Status: Chronic Current Visit: Yes - Problem List Review Problem List Initiated/Reviewed/Updated: Yes - My Orders Last 24 Hours: My Active Orders 11/30/18 09:00 Enoxaparin [Lovenox] 40 mg SUBCUT DAILY 11/30/18 09:45 Dextrose 5%-0.9% NaCl with KCl [D5 NS with 20 mEq KCl] 1,000 ml IV ASDIRECTED 11/30/18 13:00 cefTRIAXone [Rocephin] 2 gm Sodium Chloride 0.9% [Normal Saline] 50 ml IV Q24H 11/30/18 14:00 Levofloxacin/Dextrose 5%-Water [Levaquin in D5W 750 MG/150 ML] 750 mg Premix Bag 1 bag IV Q24H 11/30/18 17:11 hydrALAZINE [Apresoline] 10 mg IVPUSH Q4H PRN 12/01/18 07:00 Daily Awakening Trial [OM.PC] DAILY 12/01/18 09:11 Head wo Cont [CT] Routine 12/02/18 05:00 BASIC METABOLIC PANEL,BMP [CHEM] Timed BLOOD GAS ARTERIAL [BG] Timed CBC W/O DIFF,HEMOGRAM [HEME] Timed (1) MAGNESIUM [CHEM] Timed 12/02/18 05:11 CXR [Chest 1V Frontal] [CR] AM - Plan Plan:: ASSESSMENT AND PLAN - Left upper lobe pneumonia - complicated by acute respiratory failure with both hypoxia and hypercapnia. Still intubated and sedated. Failed weaning trial again today. Vent support has been fairly minimal and FiO2 has only 40%. Agitation has been limiting potential trial of extubation. Sputum culture growing a gram-negative rods with identification pending. I do have some concerns that he may have suffered an anoxic brain injury with his lack of responsiveness and purposeful movements though ongoing infection could be contributing to delirium as well. -Antibiotic coverage with levofloxacin and ceftriaxone, consider broadening antibiotics if not improving -Mechanical ventilation with daily weaning trials -IV steroids -Scheduled and as needed nebulizers -Follow-up sputum culture COPD with acute exacerbation - Respiratory status stable since intubation. PCO2 has normalized along with his pH. He seems to have a little bit more wheezing today. -Management as above including steroids and nebulizers Stage III chronic kidney disease - creatinine has returned to baseline. -Gentle IV fluids (D5 NS w/K+) Essential hypertension - unable to take medications at this time. Blood pressure moderately elevated for the most part but occasionally more significantly elevated. Has been responding to hydralazine so far. Maintenance issues - - DVT prophylaxis - enoxaparin - GI prophylaxis - PPI - Nutrition - nothing by mouth - Mccall catheter - placed in the emergency room, needs to remain in place in this critical patient Disposition - I would anticipate discharge home versus the prison after the hospital stay Primary care physician - [place] [facility] Aqu[facility] Jordan M.D.
--- NOTE | 2018-12-01 10:19 | CT ---
Head wo Cont CLINICAL HISTORY: Unresponsive COMPARISON: 11/29/2018 TECHNIQUE: Transverse scans were obtained from the base of the skull through the vertex without IV contrast on a multislice, multidetector CT scanner. Auto dosage reduction and iterative reconstruction techniques employed. FINDINGS: No focal abnormal parenchymal density is identified.. There is no mass effect, hemorrhage, or extraaxial collection. The basal cisterns and sulci over the convexities are prominent. The ventricles are prominent. There is some mild periventricular lucency. There has been interval development of acute sinusitis. There is a right maxillary sinus air-fluid level IMPRESSION: Age-related atrophy Chronic ischemic microvascular changes No hemorrhage or mass effect Interval development of acute sinusitis
[2018-12-01] MEDS: Enoxaparin 40 MG/0.4 ML Syringe SUBCUT SCH (10:36)
[2018-12-01] MEDS ORDERED: Heparin Sodium 5,000 UNITS in Sodium Chloride 0.9% 500 ML IV SCH (10:45)
[2018-12-01] MEDS: cefTRIAXone 2 GM in Sodium Chloride 0.9% 50 ML IV SCH (12:56)
[2018-12-01] MEDS: Levofloxacin/Dextrose 5%-Water 750 MG in Premix Bag 1 BAG IV SCH (13:37)
[2018-12-01] MEDS ORDERED: Levofloxacin/Dextrose 5%-Water 750 MG in Premix Bag 1 BAG IV SCH (14:00)
[2018-12-01] MEDS: Metoprolol Tartrate 5 MG/5 ML SDV IVPUSH SCH ×2 (15:52→22:09)
[2018-12-01] MEDS: Pantoprazole 40 MG Vial IV SCH (15:58)
[2018-12-02] MEDS: hydrALAZINE 20 MG/ML SDV IVPUSH PRN ×3 (00:31→16:49)
--- NOTE | 2018-12-02 01:07 | ANES ---
DATE OF SERVICE: 12/01/2018 INDICATIONS: Tremayne is a 73-year-old male, patient of Aquiles Jordan, who is in our intensive care unit today, DIAMANTE #[id number]. Mr. Kumar was admitted a few days ago with respiratory arrest. He was intubated by emergency room position. He has been on the ventilator. He presents now to our intensive care unit. I was consulted to assess the patient for radial art line. DESCRIPTION OF PROCEDURE: I sedated the patient, ventilated in the intensive care. I used a mini ChloraPrep to the left wrist. With sterile technique, I accessed the left radial artery. The catheter was threaded quite easily and good blood flow. He was sutured to the left wrist as well as a Tegaderm placed in a tape secure device. He tolerated the procedure quite well. He had minimal response to the procedure. No change in vital signs or neuro status. I reported off to the nurse the procedure. Andres Mello CRNA /[id number]
[2018-12-02] MEDS: Metoprolol Tartrate 5 MG/5 ML SDV IVPUSH SCH ×4 (04:12→22:12)
[2018-12-02] MEDS: Dextrose 5%-0.9% NaCl with KCl 1,000 ML IV SCH ×2 (04:19→17:02)
[2018-12-02] MEDS: methylPREDNISolone Sodium Succinate 125 MG/2 ML SDV IVPUSH SCH (06:26)
[2018-12-02] MEDS: Albuterol/Ipratropium 3.0-0.5 MG/3 ML Neb Soln NEB SCH ×4 (07:13→21:06)
[2018-12-02] MEDS: Enoxaparin 40 MG/0.4 ML Syringe SUBCUT SCH (09:02)
--- NOTE | 2018-12-02 09:26 | PCM.PN ---
- General Info Date of Service: 12/02/18 Subjective Update: there were no acute events overnight. Patient did receive IV hydralazine for elevated blood pressure though it has been better since the IV metoprolol has been started. No fevers overnight. Did not do well with weaning trial again this morning and lasted about 20 minutes before he had severe tachypnea and tachycardia. He was noted to be moving all extremities and his torso this morning during his episode of agitation. Head CT yesterday did not show acute pathology or strong evidence to support anoxic brain injury. Sputum culture grew out stenotrophomonas. peak inspiratory pressure is 25 this morning. Functional Status: Reports: Other (intubated and sedated) - Review of Systems General: Denies: Fever Pulmonary: Reports: Sputum - Patient Data Vitals - Most Recent: Last Vital Signs Temp 36.9 C 12/02/18 07:00 Pulse 75 12/02/18 07:14 Resp 70 H 12/02/18 08:24 BP 187/83 H 12/02/18 07:00 Pulse Ox 95 12/02/18 08:24 Weight - Most Recent: 96.207 kg I&O - Last 24 Hours: Intake & Output 12/01/18 12/02/18 12/02/18 22:59 06:59 14:59 Intake Total 1341 1317 Output Total 325 475 Balance 1016 842 Lab Results Last 24 Hours: Laboratory Results - last 24 hr 12/02/18 12/02/18 12/02/18 Range/Units 04:30 04:40 04:40 WBC 11.9 H (4.5-11.0) K/uL RBC 4.17 L (4.30-5.90) M/uL Hgb 12.3 (12.0-15.0) g/dL Hct 38.2 L (40.0-54.0) % MCV 92 (80-98) fL MCH 30 (27-31) pg MCHC 32 (32-36) % Plt Count 335 (150-400) K/uL Puncture Site Line ABG pH 7.450 (7.350-7.450) ABG pCO2 36.7 (35.0-42.0) mmHg ABG pO2 91.8 (75.0-100.0) mmHg ABG HCO3 25.1 (22.0-26.0) mmol/L ABG Total CO2 22.3 L (23.0-27.0) mmol/L ABG O2 Saturation 97.4 (95.0-98.0) % ABG O2 Content 17.0 (15.0-23.0) %vol ABG Base Excess 1.7 mm/L ABG Hemoglobin 12.6 L (13.5-18.0) g/dL ABG Oxyhemoglobin 95.4 % ABG Carboxyhemoglobin 1.4 (0.0-1.6) % ABG Methemoglobin 0.7 % O2 Delivery Device Ventilator Oxygen Flow Rate 40 L Sodium 144 (140-148) mmol/L Potassium 3.9 (3.6-5.2) mmol/L Chloride 111 H (100-108) mmol/L Carbon Dioxide 26 (21-32) mmol/L Anion Gap 10.9 (5.0-14.0) mmol/L BUN 25 H (7-18) mg/dL Creatinine 1.2 (0.8-1.3) mg/dL Est Cr Clr Drug Dosing 60.26 mL/min Estimated GFR (MDRD) 59 L (>60) Glucose 170 H (74-106) mg/dL Calcium 8.3 L (8.5-10.1) mg/dL Magnesium 1.8 (1.8-2.4) mg/dL Melvin Results Last 24 Hours: Microbiology 11/29/18 13:38 Gram Stain - Final Endotrachael Aspirate Respiratory Culture - Final Stenotrophomonas Maltophilia Med Orders - Current: Current Medications Acetaminophen (Tylenol) 650 mg RECTAL Q4H PRN PRN Reason: Mild pain/fever Last Admin: 12/02/18 03:32 Dose: 650 mg Albuterol (Proventil Neb Soln) 2.5 mg NEB Q4H PRN PRN Reason: Shortness Of Breath/wheezing Albuterol/Ipratropium (Duoneb 3.0-0.5 Mg/3 Ml) 3 ml NEB QIDRT [facility] Last Admin: 12/02/18 07:13 Dose: 3 ml Enoxaparin Sodium (Lovenox) 40 mg SUBCUT DAILY [facility] Last Admin: 12/02/18 09:02 Dose: 40 mg Fentanyl (Sublimaze) 25 mcg IVPUSH Q2H PRN PRN Reason: Pain Hydralazine HCl (Apresoline) 10 mg IVPUSH Q4H PRN PRN Reason: Hypertension Last Admin: 12/02/18 07:46 Dose: 10 mg Propofol (Diprivan 100 Ml) 100 mls @ 2.898 mls/hr IV TITRATE [facility]; Protocol Last Admin: 12/02/18 04:59 Dose: 45 mcg/kg/min, 26.086 mls/hr Potassium Chloride/Dextrose/Sod Cl (D5 Ns With 20 Meq Kcl) 1,000 mls @ 75 mls/ hr IV ASDIRECTED [facility] Last Admin: 12/02/18 04:19 Dose: 75 mls/hr Levofloxacin/Dextrose 750 mg/ (Premix) 150 mls @ 100 mls/hr IV Q24H [facility] Last Admin: 12/01/18 13:37 Dose: 100 mls/hr Heparin Sodium (Porcine) 5,000 (units/ Sodium Chloride) 501 mls @ 5 mls/hr IV ASDIRECTED [facility] Last Admin: 12/01/18 11:43 Dose: 5 mls/hr Trimethoprim/Sulfamethoxazole (20 ml/ Dextrose/Water) 520 mls @ 260 mls/hr IV Q8H [facility] Lorazepam (Ativan) 1 mg IVPUSH Q4H PRN PRN Reason: Agitation Metoprolol Tartrate (Lopressor) 5 mg IVPUSH Q6H [facility] Last Admin: 12/02/18 04:12 Dose: 5 mg Ondansetron HCl (Zofran Odt) 4 mg PO Q6H PRN PRN Reason: Nausea able to take PO Ondansetron HCl (Zofran) 4 mg IV Q6H PRN PRN Reason: Nausea/Vomiting Pantoprazole Sodium (Protonix Iv) 40 mg IV Q24H [facility] Last Admin: 12/01/18 15:58 Dose: 40 mg Polyethylene Glycol (Miralax) 17 gm PO DAILY PRN PRN Reason: Constipation Discontinued Medications Hydralazine HCl (Apresoline) 10 mg IVPUSH ONETIME ONE Stop: 11/30/18 06:14 Last Admin: 11/30/18 06:26 Dose: 10 mg Propofol (Diprivan 100 Ml) 100 mls @ 3 mls/hr IV TITRATE [facility]; Protocol Stop: 11/29/18 17:55 Last Titration: 11/29/18 13:42 Dose: 60 mcg/kg/min, 33.84 mls/hr Propofol (Diprivan 100 Ml) Confirm Administered Dose 100 mls @ as directed .ROUTE .STK-MED ONE Stop: 11/29/18 13:01 Last Admin: 11/29/18 13:31 Dose: Not Given Levofloxacin/Dextrose 750 mg/ (Premix) 150 mls @ 100 mls/hr IV ONETIME ONE Stop: 11/29/18 14:55 Last Admin: 11/29/18 13:34 Dose: 100 mls/hr Ceftriaxone Sodium 1 gm/ (Sodium Chloride) 50 mls @ 100 mls/hr IV ONETIME ONE Stop: 11/29/18 13:59 Last Admin: 11/29/18 13:37 Dose: 100 mls/hr Ceftriaxone Sodium 2 gm/ (Sodium Chloride) 50 mls @ 100 mls/hr IV Q24H [facility] Last Admin: 12/01/18 12:56 Dose: 100 mls/hr Ceftriaxone Sodium 1 gm/ (Sodium Chloride) 50 mls @ 100 mls/hr IV ONETIME ONE Stop: 11/30/18 01:29 Last Admin: 11/30/18 00:50 Dose: 100 mls/hr Levofloxacin/Dextrose 750 mg/ (Premix) 150 mls @ 100 mls/hr IV Q48H [facility] Sodium Chloride (Normal Saline) 1,000 mls @ 125 mls/hr IV ASDIRECTED [facility] Last Admin: 11/30/18 04:25 Dose: 125 mls/hr Methylprednisolone Sodium Succinate (Solu-Medrol) 125 mg IVPUSH ONETIME ONE Stop: 11/29/18 15:31 Last Admin: 11/29/18 15:51 Dose: 125 mg Methylprednisolone Sodium Succinate (Solu-Medrol) 62.5 mg IVPUSH Q8H [facility] Last Admin: 12/02/18 06:26 Dose: 62.5 mg Naloxone HCl (Narcan) 0.4 mg IVPUSH ONETIME PRN PRN Reason: unresponsiveness Last Admin: 11/29/18 12:49 Dose: 0.4 mg Naloxone HCl (Narcan) Confirm Administered Dose 0.4 mg .ROUTE .STK-MED ONE Stop: 11/29/18 12:44 Last Admin: 11/30/18 19:23 Dose: Not Given Succinylcholine Chloride (Quelicin) 100 mg IV ONETIME ONE Stop: 11/29/18 13:03 Last Admin: 11/29/18 12:54 Dose: 100 mg Succinylcholine Chloride (Quelicin) Confirm Administered Dose 200 mg .ROUTE .STK -MED ONE Stop: 11/29/18 12:53 Last Admin: 11/30/18 19:23 Dose: Not Given - Exam Quality Assessment: Supplemental Oxygen, Urine Catheter, DVT Prophylaxis, Restraints General: No Acute Distress, Sedated. No: Alert HEENT: Pupils Equal Lungs: Normal Respiratory Effort, Crackles (rare at bases), Wheezing (mild exp ) Cardiovascular: Regular Rhythm, Tachycardia GI/Abdominal Exam: Normal Bowel Sounds, Soft, No Distention Extremities: No Pedal Edema. No: Increased Warmth Skin: Warm, Dry Psy/Mental Status: No: Alert, Anxious - Problem List & Annotations (1) Pneumonia SNOMED Code(s): 643938189 Code(s): J18.9 - PNEUMONIA, UNSPECIFIED ORGANISM Status: Acute Current Visit: Yes Annotation/Comment:: Stenotrophomonas maltophilia (2) Acute respiratory failure with hypoxia and hypercarbia SNOMED Code(s): 948021071 Code(s): J96.01 - ACUTE RESPIRATORY FAILURE WITH HYPOXIA; J96.02 - ACUTE RESPIRATORY FAILURE WITH HYPERCAPNIA Status: Acute Current Visit: Yes (3) COPD exacerbation SNOMED Code(s): 970405371 Code(s): J44.1 - CHRONIC OBSTRUCTIVE PULMONARY DISEASE W (ACUTE) EXACERBATION Status: Acute Current Visit: Yes (4) CKD (chronic kidney disease), stage III SNOMED Code(s): 730814490 Code(s): N18.3 - CHRONIC KIDNEY DISEASE, STAGE 3 (MODERATE) Status: Chronic Current Visit: Yes - Problem List Review Problem List Initiated/Reviewed/Updated: Yes - My Orders Last 24 Hours: My Active Orders 12/01/18 10:45 Heparin Sodium 5,000 units Sodium Chloride 0.9% [Normal Saline] 500 ml IV ASDIRECTED 12/01/18 16:00 Metoprolol Tartrate [Lopressor] 5 mg IVPUSH Q6H 12/02/18 05:11 CXR [Chest 1V Frontal] [CR] AM 12/02/18 08:45 Sulfamethoxazole/Trimethoprim [Septra IV] 10 ml Dextrose 5% in Water 250 ml IV Q8H 12/02/18 09:23 RT Aerosol Therapy [RC] ASDIRECTED 12/02/18 09:30 Acetylcysteine [Mucomyst 20%] 200 mg NEB TIDRT 12/02/18 14:00 methylPREDNISolone Sod Succ [Solu-MEDROL] 40 mg IVPUSH Q8H 12/03/18 05:00 Chest 1V Frontal [CR] Timed BASIC METABOLIC PANEL,BMP [CHEM] Timed BLOOD GAS ARTERIAL [BG] Timed CBC W/O DIFF,HEMOGRAM [HEME] Timed (1) - Plan Plan:: ASSESSMENT AND PLAN - Left upper lobe pneumonia - complicated by acute respiratory failure with both hypoxia and hypercapnia. Still intubated and sedated. Failed weaning trial last 3 days. Vent support has been fairly minimal and FiO2 has only 40%. Agitation has been limiting potential trial of extubation. Sputum culture growing stenotrophomonas. CT did not show evidence for anoxic brain injury. -Antibiotic coverage with levofloxacin -discontinue ceftriaxone -Start IV trimethoprim/sulfamethoxazole -Mechanical ventilation with daily weaning trials -IV steroids (reducing dose today) -Scheduled and as needed nebulizers -Follow-up sputum culture COPD with acute exacerbation - Respiratory status stable since intubation. PCO2 has normalized along with his pH. minimal wheezing today. -Management as above including steroids and nebulizers Stage III chronic kidney disease - creatinine has returned to baseline. -Gentle IV fluids (D5 NS w/K+) Essential hypertension - unable to take medications at this time. Blood pressure moderately elevated but better in the past 24 hours. -Continue IV metoprolol -As needed hydralazine Maintenance issues - - DVT prophylaxis - enoxaparin - GI prophylaxis - PPI - Nutrition - nothing by mouth - Mccall catheter - placed in the emergency room, needs to remain in place in this critical patient Disposition - I would anticipate discharge home versus the care home after the hospital stay Primary care physician - [place] [facility] Aqu[facility] Jordan M.D.
[2018-12-02] MEDS: Acetylcysteine 20% 200 MG/ML 4 ML Nebulizer Soln SDV NEB SCH ×3 (10:04→21:06)
[2018-12-02] MEDS: Sulfamethoxazole/Trimethoprim 20 ML in Dextrose 5% in Water 500 ML IV SCH ×4 (10:06→17:37)
[2018-12-02] MEDS: Albuterol 0.083% 2.5 MG/3 ML Neb Soln NEB PRN (13:18)
[2018-12-02] MEDS: Levofloxacin/Dextrose 5%-Water 750 MG in Premix Bag 1 BAG IV SCH (13:37)
[2018-12-02] MEDS: methylPREDNISolone Sodium Succinate 40 MG/1 ML SDV IVPUSH SCH ×2 (13:37→22:18)
[2018-12-02] MEDS: Pantoprazole 40 MG Vial IV SCH (15:39)
[2018-12-03] MEDS: Sulfamethoxazole/Trimethoprim 20 ML in Dextrose 5% in Water 500 ML IV SCH ×6 (01:46→17:16)
[2018-12-03] MEDS: Metoprolol Tartrate 5 MG/5 ML SDV IVPUSH SCH ×4 (04:15→22:14)
[2018-12-03] MEDS: Dextrose 5%-0.9% NaCl with KCl 1,000 ML IV SCH (05:50)
[2018-12-03] MEDS: methylPREDNISolone Sodium Succinate 40 MG/1 ML SDV IVPUSH SCH ×3 (05:51→22:20)
[2018-12-03] MEDS: Acetylcysteine 20% 200 MG/ML 4 ML Nebulizer Soln SDV NEB SCH ×3 (07:14→20:32)
[2018-12-03] MEDS: Albuterol/Ipratropium 3.0-0.5 MG/3 ML Neb Soln NEB SCH ×4 (07:14→20:32)
[2018-12-03] MEDS: Enoxaparin 40 MG/0.4 ML Syringe SUBCUT SCH (09:11)
[2018-12-03] MEDS ORDERED: Dextrose 5%-0.9% NaCl with KCl 1,000 ML IV SCH (09:15)
--- NOTE | 2018-12-03 09:15 | PCM.PN ---
- General Info Date of Service: 12/03/18 Subjective Update: there were no acute events overnight. He did have a couple of episodes of hypertension. Heart rate and oxygenation were stable. He did fairly well with his weaning trial this morning initially but then became more agitated. He was able to move all 4 extremities. He is opening his eyes and tracking a little bit but not following commands. He has at least moderate secretions which are thinning out but still fairly thick. No fevers overnight. Tolerating antibiotics so far. Kidney function stable. Functional Status: Reports: Other (intubated, sedation off for about 2 hours) - Patient Data Vitals - Most Recent: Last Vital Signs Temp 36.8 C 12/03/18 07:00 Pulse 93 12/03/18 08:00 Resp 22 H 12/03/18 08:00 BP 183/84 H 12/03/18 08:00 Pulse Ox 97 12/03/18 08:00 Weight - Most Recent: 96.207 kg I&O - Last 24 Hours: Intake & Output 12/02/18 12/03/18 12/03/18 22:59 06:59 14:59 Intake Total 1692 2392 Output Total 250 1300 Balance 1442 1092 Lab Results Last 24 Hours: Laboratory Results - last 24 hr 12/03/18 12/03/18 12/03/18 Range/Units 04:35 04:38 04:38 WBC 8.3 (4.5-11.0) K/uL RBC 3.98 L (4.30-5.90) M/uL Hgb 11.9 L (12.0-15.0) g/dL Hct 36.5 L (40.0-54.0) % MCV 92 (80-98) fL MCH 30 (27-31) pg MCHC 33 (32-36) % Plt Count 280 (150-400) K/uL Puncture Site Line ABG pH 7.419 (7.350-7.450) ABG pCO2 35.6 (35.0-42.0) mmHg ABG pO2 90.2 (75.0-100.0) mmHg ABG HCO3 22.6 (22.0-26.0) mmol/L ABG Total CO2 20.5 L (23.0-27.0) mmol/L ABG O2 Saturation 97.5 (95.0-98.0) % ABG O2 Content 15.8 (15.0-23.0) %vol ABG Base Excess -0.9 mm/L ABG Hemoglobin 11.7 L (13.5-18.0) g/dL ABG Oxyhemoglobin 95.4 % ABG Carboxyhemoglobin 1.3 (0.0-1.6) % ABG Methemoglobin 0.9 % O2 Delivery Device Ventilator Oxygen Flow Rate L Sodium 142 (140-148) mmol/L Potassium 4.0 (3.6-5.2) mmol/L Chloride 110 H (100-108) mmol/L Carbon Dioxide 25 (21-32) mmol/L Anion Gap 11.0 (5.0-14.0) mmol/L BUN 22 H (7-18) mg/dL Creatinine 1.3 (0.8-1.3) mg/dL Est Cr Clr Drug Dosing 55.62 mL/min Estimated GFR (MDRD) 54 L (>60) Glucose 202 H (74-106) mg/dL Calcium 8.0 L (8.5-10.1) mg/dL Melvin Results Last 24 Hours: Microbiology 11/29/18 13:38 Gram Stain - Final Endotrachael Aspirate Respiratory Culture - Final Stenotrophomonas Maltophilia Med Orders - Current: Current Medications Acetaminophen (Tylenol) 650 mg RECTAL Q4H PRN PRN Reason: Mild pain/fever Last Admin: 12/02/18 03:32 Dose: 650 mg Acetylcysteine (Mucomyst 20%) 200 mg NEB TIDRT [facility] [place] Last Admin: 12/03/18 07:14 Dose: 200 mg Albuterol (Proventil Neb Soln) 2.5 mg NEB Q4H PRN PRN Reason: Shortness Of Breath/wheezing Last Admin: 12/02/18 13:18 Dose: 2.5 mg Albuterol/Ipratropium (Duoneb 3.0-0.5 Mg/3 Ml) 3 ml NEB QIDRT [facility] [place] Last Admin: 12/03/18 07:14 Dose: 3 ml Enoxaparin Sodium (Lovenox) 40 mg SUBCUT DAILY [facility] [place] Last Admin: 12/02/18 09:02 Dose: 40 mg Fentanyl (Sublimaze) 25 mcg IVPUSH Q2H PRN PRN Reason: Pain Hydralazine HCl (Apresoline) 10 mg IVPUSH Q4H PRN PRN Reason: Hypertension Last Admin: 12/02/18 16:49 Dose: 10 mg Propofol (Diprivan 100 Ml) 100 mls @ 2.898 mls/hr IV TITRATE [facility] [place]; Protocol Last Admin: 12/03/18 06:22 Dose: 35 mcg/kg/min, 20.289 mls/hr Levofloxacin/Dextrose 750 mg/ (Premix) 150 mls @ 100 mls/hr IV Q24H [facility] [place] Last Admin: 12/02/18 13:37 Dose: 100 mls/hr Heparin Sodium (Porcine) 5,000 (units/ Sodium Chloride) 501 mls @ 5 mls/hr IV ASDIRECTED [facility] [place] Last Admin: 12/01/18 11:43 Dose: 5 mls/hr Trimethoprim/Sulfamethoxazole (20 ml/ Dextrose/Water) 520 mls @ 260 mls/hr IV Q8H [facility] [place] Last Admin: 12/03/18 01:46 Dose: 260 mls/hr Lorazepam (Ativan) 1 mg IVPUSH Q4H PRN PRN Reason: Agitation Methylprednisolone Sodium Succinate (Solu-Medrol) 40 mg IVPUSH Q8H [facility] [place] Last Admin: 12/03/18 05:51 Dose: 40 mg Metoprolol Tartrate (Lopressor) 5 mg IVPUSH Q6H [facility] [place] Last Admin: 12/03/18 04:15 Dose: 5 mg Ondansetron HCl (Zofran Odt) 4 mg PO Q6H PRN PRN Reason: Nausea able to take PO Ondansetron HCl (Zofran) 4 mg IV Q6H PRN PRN Reason: Nausea/Vomiting Pantoprazole Sodium (Protonix Iv) 40 mg IV Q24H [facility] [place] Last Admin: 12/02/18 15:39 Dose: 40 mg Polyethylene Glycol (Miralax) 17 gm PO DAILY PRN PRN Reason: Constipation Discontinued Medications Hydralazine HCl (Apresoline) 10 mg IVPUSH ONETIME ONE Stop: 11/30/18 06:14 Last Admin: 11/30/18 06:26 Dose: 10 mg Propofol (Diprivan 100 Ml) 100 mls @ 3 mls/hr IV TITRATE [facility] [place]; Protocol Stop: 11/29/18 17:55 Last Titration: 11/29/18 13:42 Dose: 60 mcg/kg/min, 33.84 mls/hr Propofol (Diprivan 100 Ml) Confirm Administered Dose 100 mls @ as directed .ROUTE .STK-MED ONE Stop: 11/29/18 13:01 Last Admin: 11/29/18 13:31 Dose: Not Given Levofloxacin/Dextrose 750 mg/ (Premix) 150 mls @ 100 mls/hr IV ONETIME ONE Stop: 11/29/18 14:55 Last Admin: 11/29/18 13:34 Dose: 100 mls/hr Ceftriaxone Sodium 1 gm/ (Sodium Chloride) 50 mls @ 100 mls/hr IV ONETIME ONE Stop: 11/29/18 13:59 Last Admin: 11/29/18 13:37 Dose: 100 mls/hr Ceftriaxone Sodium 2 gm/ (Sodium Chloride) 50 mls @ 100 mls/hr IV Q24H [facility] [place] Last Admin: 12/01/18 12:56 Dose: 100 mls/hr Ceftriaxone Sodium 1 gm/ (Sodium Chloride) 50 mls @ 100 mls/hr IV ONETIME ONE Stop: 11/30/18 01:29 Last Admin: 11/30/18 00:50 Dose: 100 mls/hr Levofloxacin/Dextrose 750 mg/ (Premix) 150 mls @ 100 mls/hr IV Q48H [facility] [place] Sodium Chloride (Normal Saline) 1,000 mls @ 125 mls/hr IV ASDIRECTED [facility] [place] Last Admin: 11/30/18 04:25 Dose: 125 mls/hr Potassium Chloride/Dextrose/Sod Cl (D5 Ns With 20 Meq Kcl) 1,000 mls @ 75 mls/ hr IV ASDIRECTED [facility] [place] Last Admin: 12/03/18 05:50 Dose: 75 mls/hr Methylprednisolone Sodium Succinate (Solu-Medrol) 125 mg IVPUSH ONETIME ONE Stop: 11/29/18 15:31 Last Admin: 11/29/18 15:51 Dose: 125 mg Methylprednisolone Sodium Succinate (Solu-Medrol) 62.5 mg IVPUSH Q8H [facility] [place] Last Admin: 12/02/18 06:26 Dose: 62.5 mg Naloxone HCl (Narcan) 0.4 mg IVPUSH ONETIME PRN PRN Reason: unresponsiveness Last Admin: 11/29/18 12:49 Dose: 0.4 mg Naloxone HCl (Narcan) Confirm Administered Dose 0.4 mg .ROUTE .STK-MED ONE Stop: 11/29/18 12:44 Last Admin: 11/30/18 19:23 Dose: Not Given Succinylcholine Chloride (Quelicin) 100 mg IV ONETIME ONE Stop: 11/29/18 13:03 Last Admin: 11/29/18 12:54 Dose: 100 mg Succinylcholine Chloride (Quelicin) Confirm Administered Dose 200 mg .ROUTE .STK -MED ONE Stop: 11/29/18 12:53 Last Admin: 11/30/18 19:23 Dose: Not Given - Exam Quality Assessment: Supplemental Oxygen, Urine Catheter, DVT Prophylaxis, Restraints General: Mild Distress. No: Alert, Cooperative Lungs: Rhonchi (diffuse upper airway ), Wheezing (mild end expiratory). No: Normal Respiratory Effort (increased work of breathing ) Cardiovascular: Regular Rhythm, Tachycardia GI/Abdominal Exam: Soft, Non-Tender, No Distention Extremities: No Pedal Edema. No: Increased Warmth Skin: Warm, Dry Psy/Mental Status: Anxious. No: Alert - Problem List & Annotations (1) Pneumonia SNOMED Code(s): 846191298 Code(s): J18.9 - PNEUMONIA, UNSPECIFIED ORGANISM Status: Acute Current Visit: Yes Annotation/Comment:: Stenotrophomonas maltophilia (2) Acute respiratory failure with hypoxia and hypercarbia SNOMED Code(s): 009161699 Code(s): J96.01 - ACUTE RESPIRATORY FAILURE WITH HYPOXIA; J96.02 - ACUTE RESPIRATORY FAILURE WITH HYPERCAPNIA Status: Acute Current Visit: Yes (3) COPD exacerbation SNOMED Code(s): 948374231 Code(s): J44.1 - CHRONIC OBSTRUCTIVE PULMONARY DISEASE W (ACUTE) EXACERBATION Status: Acute Current Visit: Yes (4) CKD (chronic kidney disease), stage III SNOMED Code(s): 724696495 Code(s): N18.3 - CHRONIC KIDNEY DISEASE, STAGE 3 (MODERATE) Status: Chronic Current Visit: Yes - Problem List Review Problem List Initiated/Reviewed/Updated: Yes - My Orders Last 24 Hours: My Active Orders 12/02/18 09:23 RT Aerosol Therapy [RC] ASDIRECTED 12/02/18 09:30 Acetylcysteine [Mucomyst 20%] 200 mg NEB TIDRT 12/02/18 10:00 Sulfamethoxazole/Trimethoprim [Septra IV] 20 ml Dextrose 5% in Water 500 ml IV Q8H 12/02/18 14:00 methylPREDNISolone Sod Succ [Solu-MEDROL] 40 mg IVPUSH Q8H 12/03/18 05:00 Chest 1V Frontal [CR] Timed 12/03/18 09:12 Furosemide [Lasix] 40 mg IVPUSH ONETIME ONE 12/03/18 09:15 Dextrose 5%-0.9% NaCl with KCl [D5 NS with 20 mEq KCl] 1,000 ml IV ASDIRECTED 12/04/18 05:00 Chest 1V Frontal [CR] Timed BASIC METABOLIC PANEL,BMP [CHEM] Timed BLOOD GAS ARTERIAL [BG] Timed CBC W/O DIFF,HEMOGRAM [HEME] Timed (1) MAGNESIUM [CHEM] Timed - Plan Plan:: ASSESSMENT AND PLAN - Left upper lobe pneumonia - complicated by acute respiratory failure with both hypoxia and hypercapnia. Still intubated and sedated. Failed weaning trial again but seems to be slowly improving. Tolerating antibiotics. I suspect there is a component of excess volume this morning. Secretions are still limiting a trial of extubation as well. -Antibiotic coverage with levofloxacin -dose of furosemide and reassess volume status -continue IV trimethoprim/sulfamethoxazole -Mechanical ventilation with daily weaning trials -IV steroids -Scheduled and as needed nebulizers COPD with acute exacerbation - Respiratory status stable since intubation. PCO2 has normalized along with his pH. minimal wheezing again today. -Management as above including steroids and nebulizers Stage III chronic kidney disease - creatinine has returned to baseline. -IV fluids at 25 ml/hr (D5 NS w/K+) Essential hypertension - unable to take medications at this time. Blood pressure remains moderately elevated but better with scheduled metoprolol. -Continue IV metoprolol -As needed hydralazine Maintenance issues - - DVT prophylaxis - enoxaparin - GI prophylaxis - PPI - Nutrition - nothing by mouth - Mccall catheter - placed in the emergency room, needs to remain in place in this critical patient Disposition - I would anticipate discharge home versus the correction after the hospital stay Primary care physician - [place] [facility] M.D.
[2018-12-03] MEDS ORDERED: Furosemide 40 MG/4 ML VIAL IVPUSH ONE (10:00)
[2018-12-03] MEDS: Levofloxacin/Dextrose 5%-Water 750 MG in Premix Bag 1 BAG IV SCH (14:15)
[2018-12-03] MEDS: Pantoprazole 40 MG Vial IV SCH (16:39)
[2018-12-03] MEDS ORDERED: Furosemide 20 MG/2 ML VIAL IVPUSH ONE (20:00)
[2018-12-04] MEDS: Sulfamethoxazole/Trimethoprim 20 ML in Dextrose 5% in Water 500 ML IV SCH ×6 (01:10→17:33)
[2018-12-04] MEDS: Metoprolol Tartrate 5 MG/5 ML SDV IVPUSH SCH ×5 (04:02→21:46)
[2018-12-04] MEDS: Albuterol/Ipratropium 3.0-0.5 MG/3 ML Neb Soln NEB SCH ×4 (07:09→20:32)
[2018-12-04] MEDS: Acetylcysteine 20% 200 MG/ML 4 ML Nebulizer Soln SDV NEB SCH ×3 (07:09→20:32)
[2018-12-04] MEDS: methylPREDNISolone Sodium Succinate 40 MG/1 ML SDV IVPUSH SCH ×3 (07:25→21:51)
[2018-12-04] MEDS: Enoxaparin 40 MG/0.4 ML Syringe SUBCUT SCH (08:17)
--- NOTE | 2018-12-04 09:43 | PCM.PN ---
- General Info Date of Service: 12/04/18 Subjective Update: there were no acute events overnight. This morning during the weaning trial the patient is alert and interactive. He is able to follow commands such as squeezing fingers and wiggling toes. He is able to nod his head and shake his head to answer yes or no questions. He has favorable weaning parameters and a favorable RSBI and was successfully extubated this morning. No fevers. Tolerating the Bactrim well. Functional Status: Reports: Pain Controlled - Review of Systems General: Denies: Fever - Patient Data Vitals - Most Recent: Last Vital Signs Temp 36.6 C 12/04/18 07:53 Pulse 89 12/04/18 09:06 Resp 18 12/04/18 07:53 BP 171/78 H 12/04/18 09:06 Pulse Ox 96 12/04/18 07:53 Weight - Most Recent: 96.207 kg I&O - Last 24 Hours: Intake & Output 12/03/18 12/04/18 12/04/18 22:59 06:59 14:59 Intake Total 324 1551 Output Total 2300 1750 Balance -1976 - Lab Results Last 24 Hours: Laboratory Results - last 24 hr 12/04/18 12/04/18 12/04/18 Range/Units 05:00 05:29 05:29 WBC 9.6 (4.5-11.0) K/uL RBC 4.46 (4.30-5.90) M/uL Hgb 13.3 (12.0-15.0) g/dL Hct 40.0 (40.0-54.0) % MCV 90 (80-98) fL MCH 30 (27-31) pg MCHC 33 (32-36) % Plt Count 312 (150-400) K/uL Puncture Site A-line ABG pH 7.454 H (7.350-7.450) ABG pCO2 39.3 (35.0-42.0) mmHg ABG pO2 81.6 (75.0-100.0) mmHg ABG HCO3 27.1 H (22.0-26.0) mmol/L ABG Total CO2 23.8 (23.0-27.0) mmol/L ABG O2 Saturation 95.7 (95.0-98.0) % ABG O2 Content 17.6 (15.0-23.0) %vol ABG Base Excess 3.5 mm/L ABG Hemoglobin 13.3 L (13.5-18.0) g/dL ABG Oxyhemoglobin 94.0 % ABG Carboxyhemoglobin 0.5 (0.0-1.6) % ABG Methemoglobin 1.3 % Harris Test Passed O2 Delivery Device Ventilator Oxygen Flow Rate L Sodium 141 (140-148) mmol/L Potassium 3.9 (3.6-5.2) mmol/L Chloride 105 (100-108) mmol/L Carbon Dioxide 28 (21-32) mmol/L Anion Gap 7.9 (5.0-14.0) mmol/L BUN 25 H (7-18) mg/dL Creatinine 1.4 H (0.8-1.3) mg/dL Est Cr Clr Drug Dosing 51.65 mL/min Estimated GFR (MDRD) 50 L (>60) Glucose 153 H (74-106) mg/dL Calcium 8.5 (8.5-10.1) mg/dL Magnesium 1.9 (1.8-2.4) mg/dL Med Orders - Current: Current Medications Acetaminophen (Tylenol) 650 mg RECTAL Q4H PRN PRN Reason: Mild pain/fever Last Admin: 12/02/18 03:32 Dose: 650 mg Acetylcysteine (Mucomyst 20%) 200 mg NEB TIDRT [facility] Last Admin: 12/04/18 07:09 Dose: 200 mg Albuterol (Proventil Neb Soln) 2.5 mg NEB Q4H PRN PRN Reason: Shortness Of Breath/wheezing Last Admin: 12/02/18 13:18 Dose: 2.5 mg Albuterol/Ipratropium (Duoneb 3.0-0.5 Mg/3 Ml) 3 ml NEB QIDRT [facility] Last Admin: 12/04/18 07:09 Dose: 3 ml Enoxaparin Sodium (Lovenox) 40 mg SUBCUT DAILY [facility] Last Admin: 12/04/18 08:17 Dose: 40 mg Fentanyl (Sublimaze) 25 mcg IVPUSH Q2H PRN PRN Reason: Pain Hydralazine HCl (Apresoline) 10 mg IVPUSH Q4H PRN PRN Reason: Hypertension Last Admin: 12/02/18 16:49 Dose: 10 mg Levofloxacin/Dextrose 750 mg/ (Premix) 150 mls @ 100 mls/hr IV Q24H [facility] Last Admin: 12/03/18 14:15 Dose: 100 mls/hr Heparin Sodium (Porcine) 5,000 (units/ Sodium Chloride) 501 mls @ 5 mls/hr IV ASDIRECTED [facility] Last Admin: 12/01/18 11:43 Dose: 5 mls/hr Trimethoprim/Sulfamethoxazole (20 ml/ Dextrose/Water) 520 mls @ 260 mls/hr IV Q8H [facility] Last Admin: 12/04/18 01:10 Dose: 260 mls/hr Potassium Chloride/Dextrose/Sod Cl (D5 Ns With 20 Meq Kcl) 1,000 mls @ 25 mls/ hr IV ASDIRECTED [facility] Lorazepam (Ativan) 1 mg IVPUSH Q4H PRN PRN Reason: Agitation Methylprednisolone Sodium Succinate (Solu-Medrol) 40 mg IVPUSH Q8H [facility] Last Admin: 12/04/18 07:25 Dose: 40 mg Metoprolol Tartrate (Lopressor) 5 mg IVPUSH Q6H [facility] Last Admin: 12/04/18 09:06 Dose: 5 mg Ondansetron HCl (Zofran Odt) 4 mg PO Q6H PRN PRN Reason: Nausea able to take PO Ondansetron HCl (Zofran) 4 mg IV Q6H PRN PRN Reason: Nausea/Vomiting Pantoprazole Sodium (Protonix Iv) 40 mg IV Q24H [facility] Last Admin: 12/03/18 16:39 Dose: 40 mg Polyethylene Glycol (Miralax) 17 gm PO DAILY PRN PRN Reason: Constipation Discontinued Medications Furosemide (Lasix) 40 mg IVPUSH ONETIME ONE Stop: 12/03/18 10:01 Last Admin: 12/03/18 09:46 Dose: 40 mg Furosemide (Lasix) 20 mg IVPUSH ONETIME ONE Stop: 12/03/18 20:01 Last Admin: 12/03/18 19:17 Dose: 20 mg Hydralazine HCl (Apresoline) 10 mg IVPUSH ONETIME ONE Stop: 11/30/18 06:14 Last Admin: 11/30/18 06:26 Dose: 10 mg Propofol (Diprivan 100 Ml) 100 mls @ 3 mls/hr IV TITRATE [facility]; Protocol Stop: 11/29/18 17:55 Last Titration: 11/29/18 13:42 Dose: 60 mcg/kg/min, 33.84 mls/hr Propofol (Diprivan 100 Ml) Confirm Administered Dose 100 mls @ as directed .ROUTE .STK-MED ONE Stop: 11/29/18 13:01 Last Admin: 11/29/18 13:31 Dose: Not Given Levofloxacin/Dextrose 750 mg/ (Premix) 150 mls @ 100 mls/hr IV ONETIME ONE Stop: 11/29/18 14:55 Last Admin: 11/29/18 13:34 Dose: 100 mls/hr Ceftriaxone Sodium 1 gm/ (Sodium Chloride) 50 mls @ 100 mls/hr IV ONETIME ONE Stop: 11/29/18 13:59 Last Admin: 11/29/18 13:37 Dose: 100 mls/hr Ceftriaxone Sodium 2 gm/ (Sodium Chloride) 50 mls @ 100 mls/hr IV Q24H [facility] Last Admin: 12/01/18 12:56 Dose: 100 mls/hr Ceftriaxone Sodium 1 gm/ (Sodium Chloride) 50 mls @ 100 mls/hr IV ONETIME ONE Stop: 11/30/18 01:29 Last Admin: 11/30/18 00:50 Dose: 100 mls/hr Levofloxacin/Dextrose 750 mg/ (Premix) 150 mls @ 100 mls/hr IV Q48H [facility] Sodium Chloride (Normal Saline) 1,000 mls @ 125 mls/hr IV ASDIRECTED [facility] Last Admin: 11/30/18 04:25 Dose: 125 mls/hr Propofol (Diprivan 100 Ml) 100 mls @ 2.898 mls/hr IV TITRATE [facility]; Protocol Last Admin: 12/04/18 03:37 Dose: 35 mcg/kg/min, 20.289 mls/hr Potassium Chloride/Dextrose/Sod Cl (D5 Ns With 20 Meq Kcl) 1,000 mls @ 75 mls/ hr IV ASDIRECTED [facility] Last Admin: 12/03/18 05:50 Dose: 75 mls/hr Methylprednisolone Sodium Succinate (Solu-Medrol) 125 mg IVPUSH ONETIME ONE Stop: 11/29/18 15:31 Last Admin: 11/29/18 15:51 Dose: 125 mg Methylprednisolone Sodium Succinate (Solu-Medrol) 62.5 mg IVPUSH Q8H [facility] Last Admin: 12/02/18 06:26 Dose: 62.5 mg Naloxone HCl (Narcan) 0.4 mg IVPUSH ONETIME PRN PRN Reason: unresponsiveness Last Admin: 11/29/18 12:49 Dose: 0.4 mg Naloxone HCl (Narcan) Confirm Administered Dose 0.4 mg .ROUTE .STK-MED ONE Stop: 11/29/18 12:44 Last Admin: 11/30/18 19:23 Dose: Not Given Succinylcholine Chloride (Quelicin) 100 mg IV ONETIME ONE Stop: 11/29/18 13:03 Last Admin: 11/29/18 12:54 Dose: 100 mg Succinylcholine Chloride (Quelicin) Confirm Administered Dose 200 mg .ROUTE .STK -MED ONE Stop: 11/29/18 12:53 Last Admin: 11/30/18 19:23 Dose: Not Given - Exam Quality Assessment: Supplemental Oxygen, Urine Catheter, DVT Prophylaxis, Restraints General: Alert, Cooperative, No Acute Distress HEENT: Pupils Equal Neck: Supple Lungs: Normal Respiratory Effort, Crackles (rare at left base) Cardiovascular: Regular Rate, Regular Rhythm GI/Abdominal Exam: Normal Bowel Sounds, Soft, Non-Tender Extremities: No Pedal Edema. No: Increased Warmth Skin: Warm, Dry Psy/Mental Status: Alert, Normal Affect - Problem List & Annotations (1) Pneumonia SNOMED Code(s): 734239017 Code(s): J18.9 - PNEUMONIA, UNSPECIFIED ORGANISM Status: Acute Current Visit: Yes Annotation/Comment:: Stenotrophomonas maltophilia (2) Acute respiratory failure with hypoxia and hypercarbia SNOMED Code(s): 171052600 Code(s): J96.01 - ACUTE RESPIRATORY FAILURE WITH HYPOXIA; J96.02 - ACUTE RESPIRATORY FAILURE WITH HYPERCAPNIA Status: Acute Current Visit: Yes (3) COPD exacerbation SNOMED Code(s): 015044862 Code(s): J44.1 - CHRONIC OBSTRUCTIVE PULMONARY DISEASE W (ACUTE) EXACERBATION Status: Acute Current Visit: Yes (4) CKD (chronic kidney disease), stage III SNOMED Code(s): 575485022 Code(s): N18.3 - CHRONIC KIDNEY DISEASE, STAGE 3 (MODERATE) Status: Chronic Current Visit: Yes - Problem List Review Problem List Initiated/Reviewed/Updated: Yes - My Orders Last 24 Hours: My Active Orders 12/03/18 09:15 Dextrose 5%-0.9% NaCl with KCl [D5 NS with 20 mEq KCl] 1,000 ml IV ASDIRECTED 12/04/18 05:00 Chest 1V Frontal [CR] Timed 12/04/18 09:41 Extubation [RT Extubation] [RC] Click to Edit 12/05/18 05:00 BASIC METABOLIC PANEL,BMP [CHEM] Timed CBC W/O DIFF,HEMOGRAM [HEME] Timed (1) - Plan Plan:: ASSESSMENT AND PLAN - Left upper lobe pneumonia - complicated by acute respiratory failure with both hypoxia and hypercapnia. extubated this morning and has been stable since that time. Tolerating current antibiotic therapy. Still has a fair amount of secretions we will try another dose of furosemide. -Antibiotic coverage with levofloxacin -dose of furosemide and reassess volume status -continue IV trimethoprim/sulfamethoxazole -supplement oxygen as needed -IV steroids -Scheduled and as needed nebulizers for stenotrophomonas COPD with acute exacerbation - Respiratory status stable since intubation. PCO2 has normalized along with his pH. no wheezing today. -Management as above including steroids and nebulizers Stage III chronic kidney disease - creatinine has returned to baseline. -IV fluids at 25 ml/hr (D5 NS w/K+) Essential hypertension - unable to take medications at this time. Blood pressure remains moderately elevated but better with scheduled metoprolol. -Continue IV metoprolol -As needed hydralazine -restart home medications if he is able to take oral intake later in the day Maintenance issues - - DVT prophylaxis - enoxaparin - GI prophylaxis - PPI - Nutrition - nothing by mouth - Mccall catheter - placed in the emergency room, still needs to remain in place in this critical patient Disposition - I would anticipate discharge home versus the custodial after the hospital stay Primary care physician - [place] [facility] M.D.
[2018-12-04] MEDS ORDERED: Furosemide 20 MG/2 ML VIAL IVPUSH ONE (10:15)
[2018-12-04] MEDS: Albuterol 0.083% 2.5 MG/3 ML Neb Soln NEB PRN ×2 (13:16→23:57)
[2018-12-04] MEDS: Levofloxacin/Dextrose 5%-Water 750 MG in Premix Bag 1 BAG IV SCH (13:48)
[2018-12-04] MEDS: Pantoprazole 40 MG Vial IV SCH (16:20)
[2018-12-04] MEDS: Morphine 4 MG/ML Syringe IVPUSH PRN ×2 (18:07→20:51)
[2018-12-04] MEDS: hydrALAZINE 20 MG/ML SDV IVPUSH PRN (20:54)
[2018-12-04] MEDS: LORazepam 2 MG/ML SDV IVPUSH PRN (21:43)
[2018-12-05] MEDS: Sulfamethoxazole/Trimethoprim 20 ML in Dextrose 5% in Water 500 ML IV SCH ×6 (01:04→17:41)
[2018-12-05] MEDS: hydrALAZINE 20 MG/ML SDV IVPUSH PRN (03:07)
[2018-12-05] MEDS: Metoprolol Tartrate 5 MG/5 ML SDV IVPUSH SCH (03:40)
[2018-12-05] MEDS: methylPREDNISolone Sodium Succinate 40 MG/1 ML SDV IVPUSH SCH ×3 (05:11→21:12)
[2018-12-05] MEDS: Ondansetron 4 MG/2 ML SDV IV PRN ×2 (05:11→10:30)
[2018-12-05] MEDS: Morphine 4 MG/ML Syringe IVPUSH PRN ×5 (06:01→22:33)
[2018-12-05] MEDS: Acetylcysteine 20% 200 MG/ML 4 ML Nebulizer Soln SDV NEB SCH (06:27)
[2018-12-05] MEDS: Albuterol/Ipratropium 3.0-0.5 MG/3 ML Neb Soln NEB SCH ×4 (06:27→21:12)
[2018-12-05] MEDS: Enoxaparin 40 MG/0.4 ML Syringe SUBCUT SCH (08:42)
[2018-12-05] MEDS ORDERED: Albuterol 8 GM Inhaler INH PRN (09:38)
[2018-12-05] MEDS ORDERED: ClonazePAM 0.5 MG Tab PO PRN (09:38)
--- NOTE | 2018-12-05 09:44 | PCM.PN ---
- General Info Date of Service: 12/05/18 Subjective Update: There were no acute events overnight. The patient is complaining of nausea this morning. No complaints of chest pain. He has a loose cough and is not strong enough to produce much sputum. He did not have fevers overnight. Speech is still weak but he is able to talk more today. He is currently on 5 L of supplemental oxygen but was only on 2 overnight. Blood pressures have been moderately elevated but stable. Excellent diuresis again yesterday. Functional Status: Reports: Pain Controlled - Review of Systems General: Reports: Weakness. Denies: Fever - Patient Data Vitals - Most Recent: Last Vital Signs Temp 36.9 C 12/05/18 09:00 Pulse 101 H 12/05/18 07:00 Resp 12 12/05/18 09:00 BP 157/83 H 12/05/18 09:00 Pulse Ox 90 L 12/05/18 09:00 Weight - Most Recent: 96.207 kg I&O - Last 24 Hours: Intake & Output 12/04/18 12/05/18 12/05/18 22:59 06:59 14:59 Output Total 2100 Balance -2100 Lab Results Last 24 Hours: Laboratory Results - last 24 hr 12/05/18 12/05/18 Range/Units 05:48 05:48 WBC 12.9 H (4.5-11.0) K/uL RBC 5.04 (4.30-5.90) M/uL Hgb 14.6 (12.0-15.0) g/dL Hct 44.5 (40.0-54.0) % MCV 88 (80-98) fL MCH 29 (27-31) pg MCHC 33 (32-36) % Plt Count 382 (150-400) K/uL Sodium 138 L (140-148) mmol/L Potassium 3.7 (3.6-5.2) mmol/L Chloride 101 (100-108) mmol/L Carbon Dioxide 29 (21-32) mmol/L Anion Gap 11.7 (5.0-14.0) mmol/L BUN 30 H (7-18) mg/dL Creatinine 1.4 H (0.8-1.3) mg/dL Est Cr Clr Drug Dosing 51.65 mL/min Estimated GFR (MDRD) 50 L (>60) Glucose 118 H (74-106) mg/dL Calcium 9.1 (8.5-10.1) mg/dL Med Orders - Current: Current Medications Acetaminophen (Tylenol) 650 mg RECTAL Q4H PRN PRN Reason: Mild pain/fever Last Admin: 12/02/18 03:32 Dose: 650 mg Hydrocodone Bitart/Acetaminophen ([place] 325-10 Mg) 1 tab PO Q4H PRN PRN Reason: Pain (severe 7-10) Albuterol (Proventil Neb Soln) 2.5 mg NEB Q4H PRN PRN Reason: Shortness Of Breath/wheezing Last Admin: 12/04/18 23:57 Dose: 2.5 mg Albuterol (Ventolin Hfa) gm INH Q4H PRN PRN Reason: Shortness of Breath Albuterol/Ipratropium (Duoneb 3.0-0.5 Mg/3 Ml) 3 ml NEB QIDRT [facility] Last Admin: 12/05/18 06:27 Dose: 3 ml Buspirone HCl (Buspar) 10 mg PO BID [facility] Clonazepam (Klonopin) 1.5 mg PO BID PRN PRN Reason: Anxiety Enoxaparin Sodium (Lovenox) 40 mg SUBCUT DAILY [facility] Last Admin: 12/05/18 08:42 Dose: 40 mg Finasteride (Proscar) 5 mg PO DAILY [facility] Gabapentin (Neurontin) 400 mg PO TID [facility] Hydralazine HCl (Apresoline) 10 mg IVPUSH Q4H PRN PRN Reason: Hypertension Last Admin: 12/05/18 03:07 Dose: 10 mg Hydrochlorothiazide (Hydrochlorothiazide) 12.5 mg PO DAILY [facility] Levofloxacin/Dextrose 750 mg/ (Premix) 150 mls @ 100 mls/hr IV Q24H [facility] Last Admin: 12/04/18 13:48 Dose: 100 mls/hr Trimethoprim/Sulfamethoxazole (20 ml/ Dextrose/Water) 520 mls @ 260 mls/hr IV Q8H [facility] Last Admin: 12/05/18 09:32 Dose: 260 mls/hr Potassium Chloride/Dextrose/Sod Cl (D5 Ns With 20 Meq Kcl) 1,000 mls @ 25 mls/ hr IV ASDIRECTED [facility] Last Admin: 12/04/18 14:10 Dose: 25 mls/hr Lorazepam (Ativan) 1 mg IVPUSH Q4H PRN PRN Reason: Agitation Last Admin: 12/04/18 21:43 Dose: 1 mg Methylprednisolone Sodium Succinate (Solu-Medrol) 40 mg IVPUSH Q8H [facility] Last Admin: 12/05/18 05:11 Dose: 40 mg Metoprolol Succinate (Toprol Xl) 25 mg PO BID [facility] Morphine Sulfate (Morphine) 4 mg IVPUSH Q2H PRN PRN Reason: Pain Last Admin: 12/05/18 08:34 Dose: 4 mg Non-Formulary Medication (Fluticasone/Salmeterol [Advair Diskus 500-50]) 1 puff INH Q12H [facility] Non-Formulary Medication (Methocarbamol [Methocarbamol]) 500 mg PO TID [facility] Non-Formulary Medication (Nifedipine [Nifedipine Er]) 60 mg PO BID [facility] Non-Formulary Medication (Sertraline [Zoloft]) 100 mg PO BID [facility] Ondansetron HCl (Zofran Odt) 4 mg PO Q6H PRN PRN Reason: Nausea able to take PO Ondansetron HCl (Zofran) 4 mg IV Q6H PRN PRN Reason: Nausea/Vomiting Last Admin: 12/05/18 05:11 Dose: 4 mg Pantoprazole Sodium (Protonix) 40 mg PO BIDAC [facility] Polyethylene Glycol (Miralax) 17 gm PO DAILY PRN PRN Reason: Constipation Tamsulosin HCl (Flomax) 0.4 mg PO DAILY [facility] Discontinued Medications Acetylcysteine (Mucomyst 20%) 200 mg NEB TIDRT [facility] Last Admin: 12/05/18 06:27 Dose: 200 mg Fentanyl (Sublimaze) 25 mcg IVPUSH Q2H PRN PRN Reason: Pain Furosemide (Lasix) 40 mg IVPUSH ONETIME ONE Stop: 12/03/18 10:01 Last Admin: 12/03/18 09:46 Dose: 40 mg Furosemide (Lasix) 20 mg IVPUSH ONETIME ONE Stop: 12/03/18 20:01 Last Admin: 12/03/18 19:17 Dose: 20 mg Furosemide (Lasix) 20 mg IVPUSH ONETIME ONE Stop: 12/04/18 10:16 Last Admin: 12/04/18 10:04 Dose: 20 mg Hydralazine HCl (Apresoline) 10 mg IVPUSH ONETIME ONE Stop: 11/30/18 06:14 Last Admin: 11/30/18 06:26 Dose: 10 mg Propofol (Diprivan 100 Ml) 100 mls @ 3 mls/hr IV TITRATE [facility]; Protocol Stop: 11/29/18 17:55 Last Titration: 11/29/18 13:42 Dose: 60 mcg/kg/min, 33.84 mls/hr Propofol (Diprivan 100 Ml) Confirm Administered Dose 100 mls @ as directed .ROUTE .STK-MED ONE Stop: 11/29/18 13:01 Last Admin: 11/29/18 13:31 Dose: Not Given Levofloxacin/Dextrose 750 mg/ (Premix) 150 mls @ 100 mls/hr IV ONETIME ONE Stop: 11/29/18 14:55 Last Admin: 11/29/18 13:34 Dose: 100 mls/hr Ceftriaxone Sodium 1 gm/ (Sodium Chloride) 50 mls @ 100 mls/hr IV ONETIME ONE Stop: 11/29/18 13:59 Last Admin: 11/29/18 13:37 Dose: 100 mls/hr Ceftriaxone Sodium 2 gm/ (Sodium Chloride) 50 mls @ 100 mls/hr IV Q24H [facility] Last Admin: 12/01/18 12:56 Dose: 100 mls/hr Ceftriaxone Sodium 1 gm/ (Sodium Chloride) 50 mls @ 100 mls/hr IV ONETIME ONE Stop: 11/30/18 01:29 Last Admin: 11/30/18 00:50 Dose: 100 mls/hr Levofloxacin/Dextrose 750 mg/ (Premix) 150 mls @ 100 mls/hr IV Q48H [facility] Sodium Chloride (Normal Saline) 1,000 mls @ 125 mls/hr IV ASDIRECTED [facility] Last Admin: 11/30/18 04:25 Dose: 125 mls/hr Propofol (Diprivan 100 Ml) 100 mls @ 2.898 mls/hr IV TITRATE [facility]; Protocol Last Admin: 12/04/18 03:37 Dose: 35 mcg/kg/min, 20.289 mls/hr Potassium Chloride/Dextrose/Sod Cl (D5 Ns With 20 Meq Kcl) 1,000 mls @ 75 mls/ hr IV ASDIRECTED [facility] Last Admin: 12/03/18 05:50 Dose: 75 mls/hr Heparin Sodium (Porcine) 5,000 (units/ Sodium Chloride) 501 mls @ 5 mls/hr IV ASDIRECTED [facility] Last Admin: 12/01/18 11:43 Dose: 5 mls/hr Methylprednisolone Sodium Succinate (Solu-Medrol) 125 mg IVPUSH ONETIME ONE Stop: 11/29/18 15:31 Last Admin: 11/29/18 15:51 Dose: 125 mg Methylprednisolone Sodium Succinate (Solu-Medrol) 62.5 mg IVPUSH Q8H [facility] Last Admin: 12/02/18 06:26 Dose: 62.5 mg Metoprolol Tartrate (Lopressor) 5 mg IVPUSH Q6H [facility] Last Admin: 12/05/18 03:40 Dose: 5 mg Naloxone HCl (Narcan) 0.4 mg IVPUSH ONETIME PRN PRN Reason: unresponsiveness Last Admin: 11/29/18 12:49 Dose: 0.4 mg Naloxone HCl (Narcan) Confirm Administered Dose 0.4 mg .ROUTE .STK-MED ONE Stop: 11/29/18 12:44 Last Admin: 11/30/18 19:23 Dose: Not Given Pantoprazole Sodium (Protonix Iv) 40 mg IV Q24H [facility] Last Admin: 12/04/18 16:20 Dose: 40 mg Succinylcholine Chloride (Quelicin) 100 mg IV ONETIME ONE Stop: 11/29/18 13:03 Last Admin: 11/29/18 12:54 Dose: 100 mg Succinylcholine Chloride (Quelicin) Confirm Administered Dose 200 mg .ROUTE .STK -MED ONE Stop: 11/29/18 12:53 Last Admin: 11/30/18 19:23 Dose: Not Given - Exam Quality Assessment: Supplemental Oxygen General: Alert, Oriented, Cooperative, No Acute Distress Neck: Supple Lungs: Clear to Auscultation, Normal Respiratory Effort, Crackles (rare left lung base) Cardiovascular: Regular Rhythm, No Murmurs, Tachycardia GI/Abdominal Exam: Normal Bowel Sounds, Soft, Non-Tender, No Distention Extremities: No Pedal Edema. No: Increased Warmth Skin: Warm, Dry Psy/Mental Status: Alert, Normal Affect - Problem List & Annotations (1) Pneumonia SNOMED Code(s): 078711347 Code(s): J18.9 - PNEUMONIA, UNSPECIFIED ORGANISM Status: Acute Current Visit: Yes Annotation/Comment:: Stenotrophomonas maltophilia (2) Acute respiratory failure with hypoxia and hypercarbia SNOMED Code(s): 630364446 Code(s): J96.01 - ACUTE RESPIRATORY FAILURE WITH HYPOXIA; J96.02 - ACUTE RESPIRATORY FAILURE WITH HYPERCAPNIA Status: Acute Current Visit: Yes (3) COPD exacerbation SNOMED Code(s): 409932270 Code(s): J44.1 - CHRONIC OBSTRUCTIVE PULMONARY DISEASE W (ACUTE) EXACERBATION Status: Acute Current Visit: Yes (4) CKD (chronic kidney disease), stage III SNOMED Code(s): 173904185 Code(s): N18.3 - CHRONIC KIDNEY DISEASE, STAGE 3 (MODERATE) Status: Chronic Current Visit: Yes - Problem List Review Problem List Initiated/Reviewed/Updated: Yes - My Orders Last 24 Hours: My Active Orders 12/04/18 09:41 Extubation [RT Extubation] [RC] Click to Edit 12/04/18 17:56 Morphine 4 mg IVPUSH Q2H PRN 12/05/18 09:38 Acetaminophen/HYDROcodone [[place] 325-10 MG] 1 tab PO Q4H PRN Albuterol [Ventolin HFA] 2 ea INH Q4H PRN ClonazePAM [KlonoPIN] 1.5 mg PO BID PRN 12/05/18 09:42 Dextromethorphan/guaiFENesin [Robitussin DM] 10 ml PO Q4H PRN 12/05/18 09:45 Finasteride [Proscar] 5 mg PO DAILY Fluticasone/Salmeterol [Advair Diskus 500-50] 1 puff INH Q12H Metoprolol Succinate [Toprol XL] 25 mg PO BID NIFEdipine [Nifedipine ER] 60 mg PO BID Sertraline [Zoloft] 100 mg PO BID hydroCHLOROthiazide 12.5 mg PO DAILY 12/05/18 10:00 busPIRone [Buspar] 10 mg PO BID 12/05/18 14:00 Gabapentin [Neurontin] 400 mg PO TID Methocarbamol [Methocarbamol] 500 mg PO TID 12/05/18 16:30 Pantoprazole [ProTONIX] 40 mg PO BIDAC 12/06/18 09:00 Tamsulosin [Flomax] 0.4 mg PO DAILY - Plan Plan:: ASSESSMENT AND PLAN - Left upper lobe pneumonia secondary to stenotrophomonas - complicated by acute respiratory failure with both hypoxia and hypercapnia. Respiratory status stable since extubation yesterday but still somewhat guarded with current requirement of 5 L of supplemental oxygen. He is very weak. At baseline he has severe COPD. -Antibiotic coverage with levofloxacin (started 11/29) -dose of furosemide and reassess volume status -continue IV trimethoprim/sulfamethoxazole (started 12/02) -supplement oxygen as needed -IV steroids -Scheduled and as needed nebulizers for stenotrophomonas -Should be able to transition to oral antibiotics and steroids tomorrow if stable overnight COPD with acute exacerbation - Respiratory status stable since intubation. PCO2 has normalized along with his pH. Lungs sound clear today. -Management as above including steroids and nebulizers Stage III chronic kidney disease - creatinine has returned to baseline. -IV fluids at 25 ml/hr (D5 NS w/K+) Essential hypertension - unable to take medications at this time. Blood pressure remains moderately elevated but better with scheduled metoprolol. -Restart home antihypertensives -PRN hydralazine Maintenance issues - - DVT prophylaxis - enoxaparin - GI prophylaxis - PPI - Nutrition - full liquids - Mccall catheter - placed in the emergency room, still needs to remain in place in this critical patient. He remains extremely weak but I would anticipate that we can get the Mccall catheter out tomorrow. Disposition - I would anticipate discharge home versus the longterm after the hospital stay Primary care physician - [place] [facility] Aquiles Jordan M.D.
[2018-12-05] MEDS: Formoterol/Mometasone 200-5 MCG 8.8 GM Inhaler IH SCH ×2 (10:32→21:12)
[2018-12-05] MEDS: NIFEdipine 30 MG Tab.ER PO SCH ×3 (10:36→20:05)
[2018-12-05] MEDS: Hydrochlorothiazide 12.5 MG Cap PO SCH (10:37)
[2018-12-05] MEDS: busPIRone 10 MG Tab PO SCH ×2 (10:37→20:04)
[2018-12-05] MEDS: Finasteride 5 MG Tab PO SCH ×2 (10:38→14:08)
[2018-12-05] MEDS: Sertraline 50 MG Tab PO SCH ×2 (10:38→20:06)
[2018-12-05] MEDS: Metoprolol Succinate 25 MG Tab.ER PO SCH ×2 (10:38→20:06)
[2018-12-05] MEDS: LORazepam 2 MG/ML SDV IVPUSH PRN ×2 (12:39→22:36)
[2018-12-05] MEDS: Albuterol 0.083% 2.5 MG/3 ML Neb Soln NEB PRN ×2 (12:39→17:13)
[2018-12-05] MEDS: Levofloxacin/Dextrose 5%-Water 750 MG in Premix Bag 1 BAG IV SCH (14:09)
[2018-12-05] MEDS: Gabapentin 400 MG Cap PO SCH ×2 (14:09→20:04)
[2018-12-05] MEDS: Methocarbamol 500 MG Tab PO SCH ×2 (14:09→20:05)
[2018-12-05] MEDS: Pantoprazole 40 MG Tab.CR PO SCH (15:54)
[2018-12-05] MEDS: guaiFENesin/Dextromethorphan 100-10 MG/5 ML Soln 10 ML Cup PO PRN (15:54)
[2018-12-05] MEDS ORDERED: Furosemide 20 MG/2 ML VIAL IVPUSH ONE (19:00)
[2018-12-06] MEDS: Sulfamethoxazole/Trimethoprim 20 ML in Dextrose 5% in Water 500 ML IV SCH ×6 (02:24→17:50)
[2018-12-06] MEDS: LORazepam 2 MG/ML SDV IVPUSH PRN ×3 (04:27→21:06)
[2018-12-06] MEDS: Ondansetron 4 MG/2 ML SDV IV PRN ×2 (04:46→12:19)
[2018-12-06] MEDS: Morphine 4 MG/ML Syringe IVPUSH PRN ×3 (04:53→21:06)
[2018-12-06] MEDS: methylPREDNISolone Sodium Succinate 40 MG/1 ML SDV IVPUSH SCH ×2 (05:07→17:49)
[2018-12-06] MEDS: Formoterol/Mometasone 200-5 MCG 8.8 GM Inhaler IH SCH ×2 (07:10→20:52)
[2018-12-06] MEDS: Albuterol/Ipratropium 3.0-0.5 MG/3 ML Neb Soln NEB SCH ×4 (07:10→20:52)
[2018-12-06] MEDS: Enoxaparin 40 MG/0.4 ML Syringe SUBCUT SCH (08:33)
[2018-12-06] MEDS: Finasteride 5 MG Tab PO SCH (08:34)
[2018-12-06] MEDS: busPIRone 10 MG Tab PO SCH ×2 (08:34→21:54)
[2018-12-06] MEDS: Methocarbamol 500 MG Tab PO SCH ×3 (08:34→21:54)
[2018-12-06] MEDS: Metoprolol Succinate 25 MG Tab.ER PO SCH ×2 (08:34→21:54)
[2018-12-06] MEDS: Hydrochlorothiazide 12.5 MG Cap PO SCH (08:35)
[2018-12-06] MEDS: Pantoprazole 40 MG Tab.CR PO SCH (08:35)
[2018-12-06] MEDS: NIFEdipine 30 MG Tab.ER PO SCH ×2 (08:35→21:54)
[2018-12-06] MEDS: Gabapentin 400 MG Cap PO SCH ×3 (08:35→21:54)
[2018-12-06] MEDS: Tamsulosin 0.4 MG Cap.ER PO SCH (08:35)
[2018-12-06] MEDS: guaiFENesin/Dextromethorphan 100-10 MG/5 ML Soln 10 ML Cup PO PRN ×2 (08:40→15:22)
[2018-12-06] MEDS: Sertraline 50 MG Tab PO SCH ×2 (08:42→21:54)
[2018-12-06] MEDS: Albuterol 0.083% 2.5 MG/3 ML Neb Soln NEB PRN (08:55)
[2018-12-06] MEDS: Sodium Chloride 0.65% Nasal Spray 45 ML Bottle NAS PRN (11:15)
[2018-12-06] MEDS ORDERED: Pantoprazole 40 MG Vial IVPUSH ONE (13:00)
[2018-12-06] MEDS: Sodium Chloride 0.9% 100 ML with Pantoprazole 80 MG IV SCH ×4 (13:23→23:15)
[2018-12-06] MEDS: Sodium Chloride 0.9% 1,000 ML IV SCH (13:26)
[2018-12-06] MEDS: Levofloxacin/Dextrose 5%-Water 750 MG in Premix Bag 1 BAG IV SCH (13:27)
--- NOTE | 2018-12-06 13:53 | PCM.PN ---
- General Info Date of Service: 12/06/18 Subjective Update: Mr. Kumar is been stable from a respiratory standpoint since yesterday. Plan was to proceed with transfer to the [facility] [place] today. He had been accepted in transfer, shortly before we started to work on transfer orders he had a large coffee-ground emesis followed by a melenic-appearing stool which was found to be heme positive. Follow-up hemoglobin level is 12.9 down from 14.6 yesterday. Creatinine is elevated from yesterday likely secondary to diuresis. Because [facility]. Functional Status: Reports: Tolerating Diet, Urinating - Review of Systems General: Reports: Weakness, Chills. Denies: Fever Pulmonary: Reports: Shortness of Breath, Cough, Wheezing. Denies: Pleuritic Chest Pain, Sputum, Hemoptysis Cardiovascular: Reports: Dyspnea on Exertion. Denies: Chest Pain, Palpitations , Orthopnea, PND, Edema, Lightheadedness Gastrointestinal: Reports: Hematochezia, Melena, Nausea, Vomiting. Denies: Abdominal Pain - Patient Data Vitals - Most Recent: Last Vital Signs Temp 97.3 F 12/06/18 13:41 Pulse 104 H 12/06/18 13:41 Resp 14 12/06/18 13:41 BP 117/76 12/06/18 13:41 Pulse Ox 92 L 12/06/18 13:41 Weight - Most Recent: 212 lb 1.602 oz I&O - Last 24 Hours: Intake & Output 12/05/18 12/06/18 12/06/18 22:59 06:59 14:59 Intake Total 1634 680 828 Output Total 650 700 Balance 984 -20 828 Lab Results Last 24 Hours: Laboratory Results - last 24 hr 12/06/18 12/06/18 12/06/18 Range/Units 12:45 12:45 12:45 WBC 20.9 H (4.5-11.0) K/uL RBC 4.24 L (4.30-5.90) M/uL Hgb 12.9 (12.0-15.0) g/dL Hct 38.1 L (40.0-54.0) % MCV 90 (80-98) fL MCH 30 (27-31) pg MCHC 34 (32-36) % Plt Count 316 (150-400) K/uL Neut % (Auto) 93 H (36-66) % Lymph % (Auto) 1 L (24-44) % [place] % (Auto) 6 (2-6) % Eos % (Auto) 0 L (2-4) % Baso % (Auto) 0 (0-1) % PT 12.2 H (9.5-12.0) sec INR 1.12 (0.80-1.20) Sodium (140-148) mmol/L Potassium (3.6-5.2) mmol/L Chloride (100-108) mmol/L Carbon Dioxide (21-32) mmol/L Anion Gap (5.0-14.0) mmol/L BUN (7-18) mg/dL Creatinine (0.8-1.3) mg/dL Est Cr Clr Drug Dosing mL/min Estimated GFR (MDRD) (>60) Glucose (74-106) mg/dL Calcium (8.5-10.1) mg/dL Blood Type O POSITIVE Gel Antibody Screen Negative Crossmatch See Detail 12/06/18 Range/Units 12:45 WBC (4.5-11.0) K/uL RBC (4.30-5.90) M/uL Hgb (12.0-15.0) g/dL Hct (40.0-54.0) % MCV (80-98) fL MCH (27-31) pg MCHC (32-36) % Plt Count (150-400) K/uL Neut % (Auto) (36-66) % Lymph % (Auto) (24-44) % [place] % (Auto) (2-6) % Eos % (Auto) (2-4) % Baso % (Auto) (0-1) % PT (9.5-12.0) sec INR (0.80-1.20) Sodium 138 L (140-148) mmol/L Potassium 3.9 (3.6-5.2) mmol/L Chloride 100 (100-108) mmol/L Carbon Dioxide 28 (21-32) mmol/L Anion Gap 13.9 (5.0-14.0) mmol/L BUN 65 H D (7-18) mg/dL Creatinine 1.8 H (0.8-1.3) mg/dL Est Cr Clr Drug Dosing 40.17 mL/min Estimated GFR (MDRD) 37 L (>60) Glucose 160 H (74-106) mg/dL Calcium 8.4 L (8.5-10.1) mg/dL Blood Type Gel Antibody Screen Crossmatch Melvin Results Last 24 Hours: Microbiology 12/06/18 12:20 Stool Occult Blood (MELVIN) - Final Stool / Feces Med Orders - Current: Current Medications Acetaminophen (Tylenol) 650 mg RECTAL Q4H PRN PRN Reason: Mild pain/fever Last Admin: 12/02/18 03:32 Dose: 650 mg Hydrocodone Bitart/Acetaminophen ([place] 325-10 Mg) 1 tab PO Q4H PRN PRN Reason: Pain (severe 7-10) Albuterol (Proventil Neb Soln) 2.5 mg NEB Q4H PRN PRN Reason: Shortness Of Breath/wheezing Last Admin: 12/06/18 08:55 Dose: 2.5 mg Albuterol (Ventolin Hfa) 0 gm INH Q4H PRN PRN Reason: Shortness of Breath Last Admin: 12/05/18 20:02 Dose: 2 puff Albuterol/Ipratropium (Duoneb 3.0-0.5 Mg/3 Ml) 3 ml NEB QIDRT [facility] Last Admin: 12/06/18 10:53 Dose: 3 ml Buspirone HCl (Buspar) 10 mg PO BID [facility] Last Admin: 12/06/18 08:34 Dose: 10 mg Clonazepam (Klonopin) 1.5 mg PO BID PRN PRN Reason: Anxiety Finasteride (Proscar) 5 mg PO DAILY [facility] Last Admin: 12/06/18 08:34 Dose: 5 mg Gabapentin (Neurontin) 400 mg PO TID [facility] Last Admin: 12/06/18 13:46 Dose: 400 mg Guaifenesin/Dextromethorphan (Robitussin Dm) 10 ml PO Q4H PRN PRN Reason: Cough Last Admin: 12/06/18 08:40 Dose: 10 ml Hydralazine HCl (Apresoline) 10 mg IVPUSH Q4H PRN PRN Reason: Hypertension Last Admin: 12/05/18 03:07 Dose: 10 mg Hydrochlorothiazide (Hydrochlorothiazide) 12.5 mg PO DAILY [facility] Last Admin: 12/06/18 08:35 Dose: 12.5 mg Levofloxacin/Dextrose 750 mg/ (Premix) 150 mls @ 100 mls/hr IV Q24H [facility] Last Admin: 12/06/18 13:27 Dose: 100 mls/hr Trimethoprim/Sulfamethoxazole (20 ml/ Dextrose/Water) 520 mls @ 260 mls/hr IV Q8H [facility] Last Admin: 12/06/18 09:51 Dose: 260 mls/hr Pantoprazole Sodium 80 mg/ (Sodium Chloride) 100 mls @ 10 mls/hr IV .Q10H [facility] Last Admin: 12/06/18 13:23 Dose: 10 mls/hr Sodium Chloride (Normal Saline) 1,000 mls @ 125 mls/hr IV ASDIRECTED [facility] Last Admin: 12/06/18 13:26 Dose: 125 mls/hr Lorazepam (Ativan) 1 mg IVPUSH Q4H PRN PRN Reason: Nausea/Vomiting Last Admin: 12/06/18 04:27 Dose: 1 mg Methocarbamol (Robaxin) 500 mg PO TID [facility] Last Admin: 12/06/18 13:46 Dose: 500 mg Methylprednisolone Sodium Succinate (Solu-Medrol) 40 mg IVPUSH Q12H [facility] Metoprolol Succinate (Toprol Xl) 25 mg PO BID [facility] Last Admin: 12/06/18 08:34 Dose: 25 mg Mometasone Furoate/Formoterol Fumar (Dulera 200-5 Mcg) 2 puff IH BIDRT [facility] Last Admin: 12/06/18 07:10 Dose: 2 puff Morphine Sulfate (Morphine) 4 mg IVPUSH Q2H PRN PRN Reason: Pain Last Admin: 12/06/18 04:53 Dose: 4 mg Nifedipine (Procardia Xl) 60 mg PO BID [facility] Last Admin: 12/06/18 08:35 Dose: 60 mg Ondansetron HCl (Zofran Odt) 4 mg PO Q6H PRN PRN Reason: Nausea able to take PO Last Admin: 12/05/18 21:29 Dose: 4 mg Ondansetron HCl (Zofran) 4 mg IV Q6H PRN PRN Reason: Nausea/Vomiting Last Admin: 12/06/18 12:19 Dose: 4 mg Polyethylene Glycol (Miralax) 17 gm PO DAILY PRN PRN Reason: Constipation Sertraline HCl (Zoloft) 100 mg PO BID [facility] Last Admin: 12/06/18 08:42 Dose: 100 mg Sodium Chloride ([place] Nasal [place]) 0 ml STUART Q2H PRN PRN Reason: Dryness Last Admin: 12/06/18 11:15 Dose: 2 applic Tamsulosin HCl (Flomax) 0.4 mg PO DAILY [facility] Last Admin: 12/06/18 08:35 Dose: 0.4 mg Discontinued Medications Acetylcysteine (Mucomyst 20%) 200 mg NEB TIDRT [facility] Last Admin: 12/05/18 06:27 Dose: 200 mg Enoxaparin Sodium (Lovenox) 40 mg SUBCUT DAILY [facility] Last Admin: 12/06/18 08:33 Dose: 40 mg Fentanyl (Sublimaze) 25 mcg IVPUSH Q2H PRN PRN Reason: Pain Furosemide (Lasix) 40 mg IVPUSH ONETIME ONE Stop: 12/03/18 10:01 Last Admin: 12/03/18 09:46 Dose: 40 mg Furosemide (Lasix) 20 mg IVPUSH ONETIME ONE Stop: 12/03/18 20:01 Last Admin: 12/03/18 19:17 Dose: 20 mg Furosemide (Lasix) 20 mg IVPUSH ONETIME ONE Stop: 12/04/18 10:16 Last Admin: 12/04/18 10:04 Dose: 20 mg Furosemide (Lasix) 20 mg IVPUSH ONETIME ONE Stop: 12/05/18 19:01 Last Admin: 12/05/18 20:09 Dose: 20 mg Hydralazine HCl (Apresoline) 10 mg IVPUSH ONETIME ONE Stop: 11/30/18 06:14 Last Admin: 11/30/18 06:26 Dose: 10 mg Propofol (Diprivan 100 Ml) 100 mls @ 3 mls/hr IV TITRATE [facility]; Protocol Stop: 11/29/18 17:55 Last Titration: 11/29/18 13:42 Dose: 60 mcg/kg/min, 33.84 mls/hr Propofol (Diprivan 100 Ml) Confirm Administered Dose 100 mls @ as directed .ROUTE .STK-MED ONE Stop: 11/29/18 13:01 Last Admin: 11/29/18 13:31 Dose: Not Given Levofloxacin/Dextrose 750 mg/ (Premix) 150 mls @ 100 mls/hr IV ONETIME ONE Stop: 11/29/18 14:55 Last Admin: 11/29/18 13:34 Dose: 100 mls/hr Ceftriaxone Sodium 1 gm/ (Sodium Chloride) 50 mls @ 100 mls/hr IV ONETIME ONE Stop: 11/29/18 13:59 Last Admin: 11/29/18 13:37 Dose: 100 mls/hr Ceftriaxone Sodium 2 gm/ (Sodium Chloride) 50 mls @ 100 mls/hr IV Q24H [facility] Last Admin: 12/01/18 12:56 Dose: 100 mls/hr Ceftriaxone Sodium 1 gm/ (Sodium Chloride) 50 mls @ 100 mls/hr IV ONETIME ONE Stop: 11/30/18 01:29 Last Admin: 11/30/18 00:50 Dose: 100 mls/hr Levofloxacin/Dextrose 750 mg/ (Premix) 150 mls @ 100 mls/hr IV Q48H [facility] Sodium Chloride (Normal Saline) 1,000 mls @ 125 mls/hr IV ASDIRECTED [facility] Last Admin: 11/30/18 04:25 Dose: 125 mls/hr Propofol (Diprivan 100 Ml) 100 mls @ 2.898 mls/hr IV TITRATE [facility]; Protocol Last Admin: 12/04/18 03:37 Dose: 35 mcg/kg/min, 20.289 mls/hr Potassium Chloride/Dextrose/Sod Cl (D5 Ns With 20 Meq Kcl) 1,000 mls @ 75 mls/ hr IV ASDIRECTED [facility] Last Admin: 12/03/18 05:50 Dose: 75 mls/hr Heparin Sodium (Porcine) 5,000 (units/ Sodium Chloride) 501 mls @ 5 mls/hr IV ASDIRECTED [facility] Last Admin: 12/01/18 11:43 Dose: 5 mls/hr Potassium Chloride/Dextrose/Sod Cl (D5 Ns With 20 Meq Kcl) 1,000 mls @ 25 mls/ hr IV ASDIRECTED [facility] Last Admin: 12/04/18 14:10 Dose: 25 mls/hr Methylprednisolone Sodium Succinate (Solu-Medrol) 125 mg IVPUSH ONETIME ONE Stop: 11/29/18 15:31 Last Admin: 11/29/18 15:51 Dose: 125 mg Methylprednisolone Sodium Succinate (Solu-Medrol) 62.5 mg IVPUSH Q8H [facility] Last Admin: 12/02/18 06:26 Dose: 62.5 mg Methylprednisolone Sodium Succinate (Solu-Medrol) 40 mg IVPUSH Q8H [facility] Last Admin: 12/06/18 05:07 Dose: 40 mg Metoprolol Tartrate (Lopressor) 5 mg IVPUSH Q6H [facility] Last Admin: 12/05/18 03:40 Dose: 5 mg Naloxone HCl (Narcan) 0.4 mg IVPUSH ONETIME PRN PRN Reason: unresponsiveness Last Admin: 11/29/18 12:49 Dose: 0.4 mg Naloxone HCl (Narcan) Confirm Administered Dose 0.4 mg .ROUTE .STK-MED ONE Stop: 11/29/18 12:44 Last Admin: 11/30/18 19:23 Dose: Not Given Pantoprazole Sodium (Protonix Iv) 40 mg IV Q24H [facility] Last Admin: 12/04/18 16:20 Dose: 40 mg Pantoprazole Sodium (Protonix) 40 mg PO BIDAC [facility] Last Admin: 12/06/18 08:35 Dose: 40 mg Pantoprazole Sodium (Protonix Iv) 40 mg IVPUSH ONETIME ONE Stop: 12/06/18 13:01 Last Admin: 12/06/18 13:23 Dose: 40 mg Succinylcholine Chloride (Quelicin) 100 mg IV ONETIME ONE Stop: 11/29/18 13:03 Last Admin: 11/29/18 12:54 Dose: 100 mg Succinylcholine Chloride (Quelicin) Confirm Administered Dose 200 mg .ROUTE .STK -MED ONE Stop: 11/29/18 12:53 Last Admin: 11/30/18 19:23 Dose: Not Given - Exam Quality Assessment: Supplemental Oxygen, DVT Prophylaxis General: Alert, Oriented, Cooperative, Mild Distress Lungs: Clear to Auscultation, Normal Respiratory Effort, Decreased Breath Sounds. No: Rales, Rhonchi, Wheezing Cardiovascular: Regular Rhythm, No Murmurs, Tachycardia GI/Abdominal Exam: Soft, Non-Tender, No Organomegaly, No Distention Extremities: Non-Tender, No Pedal Edema - Problem List Review Problem List Initiated/Reviewed/Updated: Yes - My Orders Last 24 Hours: My Active Orders 12/06/18 11:11 Sodium Chloride 0.65% [[place] Nasal [place]] 0 ml STUART Q2H PRN 12/06/18 12:45 RED BLOOD CELLS LP [BBK] Stat TYPE AND SCREEN [BBK] Stat Sodium Chloride 0.9% [Normal Saline] 1,000 ml IV ASDIRECTED 12/06/18 13:00 Sodium Chloride 0.9% [Normal Saline] 100 ml Pantoprazole [ProTONIX IV] 80 mg IV 10 mls/hr 12/06/18 13:15 Antiembolic Devices [RC] .Routine Sequential Compression Device [OM.PC] Routine 12/06/18 17:00 HGB [HEMOGLOBIN] [HEME] Stat 12/06/18 18:00 methylPREDNISolone Sod Succ [Solu-MEDROL] 40 mg IVPUSH Q12H 12/06/18 23:00 HGB [HEMOGLOBIN] [HEME] Stat 12/06/18 Dinner NPO Now [Nothing per Oral Now Diet] [DIET] 12/07/18 05:00 BASIC METABOLIC PANEL,BMP [CHEM] Timed CBC WITH AUTO DIFF [HEME] Timed MAGNESIUM [CHEM] Timed - Plan Plan:: ASSESSMENT AND PLAN - Left upper lobe pneumonia secondary to stenotrophomonas -Respiratory status stable since yesterday, adequate oxygenation on 2 L/m -Antibiotic coverage with levofloxacin (started 11/29) -continue IV trimethoprim/sulfamethoxazole (started 12/02) -supplement oxygen as needed -IV steroids -Scheduled and as needed nebulizers Probable upper GI bleed-late morning experienced a large coffee-ground appearing emesis, followed by a melenic-appearing stool. Hemoglobin late morning of 12.9, down from 14.6 yesterday -Nothing by mouth -Protonix 40 mg IV now followed by continuous infusion of Protonix at 8 mg per hour -Consider EGD in a.m. -Type and screen -Serial hemoglobin levels -Maintain 2 IV sites -Hold 2 units of red blood cells Acute on chronic hypoxic and hypercapnic respiratory failure-secondary to pneumonia and COPD exacerbation COPD with acute exacerbation - Respiratory status stable since extubation. -Management as above including steroids and nebulizers Stage III chronic kidney disease - creatinine up from yesterday likely secondary to diuresis -Continue to closely monitor fluid status and renal function Essential hypertension - unable to take medications at this time. Blood pressure remains moderately elevated but better with scheduled metoprolol. -Restart home antihypertensives -PRN hydralazine Maintenance issues - - DVT prophylaxis - enoxaparin - GI prophylaxis - PPI - Nutrition - full liquids - Mccall catheter - placed in the emergency room, still needs to remain in place in this critical patient. He remains extremely weak but I would anticipate that we can get the Mccall catheter out tomorrow. Disposition - I would anticipate discharge home versus the senior living after the hospital stay Primary care physician - [facility]
[2018-12-06] MEDS ORDERED: Magnesium Sulfate/Water 2 GM in Premix Bag 1 BAG IV ONE (18:23)
[2018-12-07] MEDS: Sulfamethoxazole/Trimethoprim 20 ML in Dextrose 5% in Water 500 ML IV SCH ×6 (01:37→17:49)
[2018-12-07] MEDS: LORazepam 2 MG/ML SDV IVPUSH PRN ×2 (03:55→15:11)
[2018-12-07] MEDS: Sodium Chloride 0.9% 1,000 ML IV SCH (03:55)
[2018-12-07] MEDS: Morphine 4 MG/ML Syringe IVPUSH PRN ×4 (03:57→20:28)
[2018-12-07] MEDS: methylPREDNISolone Sodium Succinate 40 MG/1 ML SDV IVPUSH SCH (05:06)
[2018-12-07] MEDS: Formoterol/Mometasone 200-5 MCG 8.8 GM Inhaler IH SCH ×2 (07:11→20:10)
[2018-12-07] MEDS: Albuterol/Ipratropium 3.0-0.5 MG/3 ML Neb Soln NEB SCH ×4 (07:11→20:10)
[2018-12-07] MEDS: Finasteride 5 MG Tab PO SCH (09:08)
[2018-12-07] MEDS: NIFEdipine 30 MG Tab.ER PO SCH ×2 (09:08→20:35)
[2018-12-07] MEDS: Sodium Chloride 0.9% 100 ML with Pantoprazole 80 MG IV SCH ×2 (09:10)
[2018-12-07] MEDS: Gabapentin 400 MG Cap PO SCH ×3 (09:11→20:35)
[2018-12-07] MEDS: Metoprolol Succinate 25 MG Tab.ER PO SCH ×2 (09:11→20:35)
[2018-12-07] MEDS: Sertraline 50 MG Tab PO SCH ×2 (09:12→20:35)
[2018-12-07] MEDS: Methocarbamol 500 MG Tab PO SCH ×3 (09:12→20:35)
[2018-12-07] MEDS: busPIRone 10 MG Tab PO SCH ×2 (09:13→20:35)
[2018-12-07] MEDS: Tamsulosin 0.4 MG Cap.ER PO SCH (09:13)
[2018-12-07] MEDS: Hydrochlorothiazide 12.5 MG Cap PO SCH (09:14)
[2018-12-07] MEDS: Sodium Chloride 0.65% Nasal Spray 45 ML Bottle NAS PRN (09:32)
[2018-12-07] MEDS ORDERED: Propofol 200 MG/20 ML SDV ONE (13:31)
[2018-12-07] MEDS: Levofloxacin/Dextrose 5%-Water 750 MG in Premix Bag 1 BAG IV SCH (15:02)
--- NOTE | 2018-12-07 17:27 | PCM.PN ---
- General Info Date of Service: 12/07/18 Subjective Update: Mr. Kumar has been stable since yesterday, no further melenic stools or hematemesis. Hemoglobin has dropped further, but now stable over the last few checks. EGD performed by Dr. Downing, showed dark fluid within the stomach, a relatively large amount, approximately 1 L. No obvious source of blood loss or active bleeding was identified. Respiratory status has been stable and he has remained afebrile. - Review of Systems General: Reports: Weakness. Denies: Fever, Chills Pulmonary: Reports: Shortness of Breath, Wheezing. Denies: Pleuritic Chest Pain , Cough, Sputum, Hemoptysis Cardiovascular: Reports: Dyspnea on Exertion. Denies: Chest Pain, Palpitations , Orthopnea, PND, Edema, Lightheadedness Gastrointestinal: Reports: No Symptoms - Patient Data Vitals - Most Recent: Last Vital Signs Temp 98.8 F 12/07/18 14:58 Pulse 112 H 12/07/18 16:00 Resp 17 12/07/18 16:00 BP 110/52 L 12/07/18 16:00 Pulse Ox 90 L 12/07/18 16:00 Weight - Most Recent: 212 lb 1.602 oz I&O - Last 24 Hours: Intake & Output 12/07/18 12/07/18 12/07/18 06:59 14:59 22:59 Intake Total 1830 520 150 Output Total 600 Balance 1230 520 150 Lab Results Last 24 Hours: Laboratory Results - last 24 hr 12/06/18 12/06/18 12/07/18 Range/Units 17:30 23:00 05:06 WBC 12.8 H (4.5-11.0) K/uL RBC 3.61 L (4.30-5.90) M/uL Hgb 11.9 L 11.1 L 10.8 L (12.0-15.0) g/dL Hct 32.7 L (40.0-54.0) % MCV 91 (80-98) fL MCH 30 (27-31) pg MCHC 33 (32-36) % Plt Count 267 (150-400) K/uL Neut % (Auto) 88 H (36-66) % Lymph % (Auto) 4 L (24-44) % Hodgeman % (Auto) 8 H (2-6) % Eos % (Auto) 0 L (2-4) % Baso % (Auto) 0 (0-1) % Sodium (140-148) mmol/L Potassium (3.6-5.2) mmol/L Chloride (100-108) mmol/L Carbon Dioxide (21-32) mmol/L Anion Gap (5.0-14.0) mmol/L BUN (7-18) mg/dL Creatinine (0.8-1.3) mg/dL Est Cr Clr Drug Dosing mL/min Estimated GFR (MDRD) (>60) Glucose (74-106) mg/dL Calcium (8.5-10.1) mg/dL Magnesium (1.8-2.4) mg/dL 12/07/18 12/07/18 12/07/18 Range/Units 05:06 11:53 16:58 WBC (4.5-11.0) K/uL RBC (4.30-5.90) M/uL Hgb 11.0 L 9.6 L (12.0-15.0) g/dL Hct (40.0-54.0) % MCV (80-98) fL MCH (27-31) pg MCHC (32-36) % Plt Count (150-400) K/uL Neut % (Auto) (36-66) % Lymph % (Auto) (24-44) % Hodgeman % (Auto) (2-6) % Eos % (Auto) (2-4) % Baso % (Auto) (0-1) % Sodium 137 L (140-148) mmol/L Potassium 3.9 (3.6-5.2) mmol/L Chloride 100 (100-108) mmol/L Carbon Dioxide 32 (21-32) mmol/L Anion Gap 8.9 (5.0-14.0) mmol/L BUN 75 H (7-18) mg/dL Creatinine 2.0 H (0.8-1.3) mg/dL Est Cr Clr Drug Dosing 36.16 mL/min Estimated GFR (MDRD) 33 L (>60) Glucose 127 H (74-106) mg/dL Calcium 8.2 L (8.5-10.1) mg/dL Magnesium 2.5 H (1.8-2.4) mg/dL Melvin Results Last 24 Hours: Microbiology 12/06/18 12:20 Stool Occult Blood (MELVIN) - Final Stool / Feces Med Orders - Current: Current Medications Acetaminophen (Tylenol) 650 mg RECTAL Q4H PRN PRN Reason: Mild pain/fever Last Admin: 12/02/18 03:32 Dose: 650 mg Hydrocodone Bitart/Acetaminophen ([place] 325-10 Mg) 1 tab PO Q4H PRN PRN Reason: Pain (severe 7-10) Albuterol (Proventil Neb Soln) 2.5 mg NEB Q4H PRN PRN Reason: Shortness Of Breath/wheezing Last Admin: 12/06/18 08:55 Dose: 2.5 mg Albuterol (Ventolin Hfa) 0 gm INH Q4H PRN PRN Reason: Shortness of Breath Last Admin: 12/05/18 20:02 Dose: 2 puff Albuterol/Ipratropium (Duoneb 3.0-0.5 Mg/3 Ml) 3 ml NEB QIDRT [facility] Last Admin: 12/07/18 14:29 Dose: 3 ml Buspirone HCl (Buspar) 10 mg PO BID [facility] Last Admin: 12/07/18 09:13 Dose: 10 mg Clonazepam (Klonopin) 1.5 mg PO BID PRN PRN Reason: Anxiety Finasteride (Proscar) 5 mg PO DAILY [facility] Last Admin: 12/07/18 09:08 Dose: 5 mg Gabapentin (Neurontin) 400 mg PO TID [facility] Last Admin: 12/07/18 15:20 Dose: 400 mg Guaifenesin/Dextromethorphan (Robitussin Dm) 10 ml PO Q4H PRN PRN Reason: Cough Last Admin: 12/06/18 15:22 Dose: 10 ml Hydralazine HCl (Apresoline) 10 mg IVPUSH Q4H PRN PRN Reason: Hypertension Last Admin: 12/05/18 03:07 Dose: 10 mg Hydrochlorothiazide (Hydrochlorothiazide) 12.5 mg PO DAILY [facility] Last Admin: 12/07/18 09:14 Dose: 12.5 mg Trimethoprim/Sulfamethoxazole (20 ml/ Dextrose/Water) 520 mls @ 260 mls/hr IV Q8H [facility] Last Admin: 12/07/18 09:28 Dose: 260 mls/hr Methocarbamol (Robaxin) 500 mg PO TID [facility] Last Admin: 12/07/18 15:19 Dose: 500 mg Metoclopramide HCl (Reglan) 10 mg IVPUSH Q6H [facility] Metoprolol Succinate (Toprol Xl) 25 mg PO BID [facility] Last Admin: 12/07/18 09:11 Dose: 25 mg Mometasone Furoate/Formoterol Fumar (Dulera 200-5 Mcg) 2 puff IH BIDRT [facility] Last Admin: 12/07/18 07:11 Dose: 2 puff Morphine Sulfate (Morphine) 4 mg IVPUSH Q2H PRN PRN Reason: Pain Last Admin: 12/07/18 15:11 Dose: 4 mg Nifedipine (Procardia Xl) 60 mg PO BID [facility] Last Admin: 12/07/18 09:08 Dose: 60 mg Ondansetron HCl (Zofran Odt) 4 mg PO Q6H PRN PRN Reason: Nausea able to take PO Last Admin: 12/05/18 21:29 Dose: 4 mg Ondansetron HCl (Zofran) 4 mg IV Q6H PRN PRN Reason: Nausea/Vomiting Last Admin: 12/06/18 12:19 Dose: 4 mg Pantoprazole Sodium (Protonix Iv) 40 mg IVPUSH Q12H [facility] Polyethylene Glycol (Miralax) 17 gm PO DAILY PRN PRN Reason: Constipation Sertraline HCl (Zoloft) 100 mg PO BID [facility] Last Admin: 12/07/18 09:12 Dose: 100 mg Sodium Chloride ([place] Nasal [place]) 0 ml STUART Q2H PRN PRN Reason: Dryness Last Admin: 12/07/18 09:32 Dose: 2 applic Tamsulosin HCl (Flomax) 0.4 mg PO DAILY [facility] Last Admin: 12/07/18 09:13 Dose: 0.4 mg Discontinued Medications Acetylcysteine (Mucomyst 20%) 200 mg NEB TIDRT [facility] Last Admin: 12/05/18 06:27 Dose: 200 mg Enoxaparin Sodium (Lovenox) 40 mg SUBCUT DAILY [facility] Last Admin: 12/06/18 08:33 Dose: 40 mg Fentanyl (Sublimaze) 25 mcg IVPUSH Q2H PRN PRN Reason: Pain Furosemide (Lasix) 40 mg IVPUSH ONETIME ONE Stop: 12/03/18 10:01 Last Admin: 12/03/18 09:46 Dose: 40 mg Furosemide (Lasix) 20 mg IVPUSH ONETIME ONE Stop: 12/03/18 20:01 Last Admin: 12/03/18 19:17 Dose: 20 mg Furosemide (Lasix) 20 mg IVPUSH ONETIME ONE Stop: 12/04/18 10:16 Last Admin: 12/04/18 10:04 Dose: 20 mg Furosemide (Lasix) 20 mg IVPUSH ONETIME ONE Stop: 12/05/18 19:01 Last Admin: 12/05/18 20:09 Dose: 20 mg Hydralazine HCl (Apresoline) 10 mg IVPUSH ONETIME ONE Stop: 11/30/18 06:14 Last Admin: 11/30/18 06:26 Dose: 10 mg Propofol (Diprivan 100 Ml) 100 mls @ 3 mls/hr IV TITRATE EVIN; Protocol Stop: 11/29/18 17:55 Last Titration: 11/29/18 13:42 Dose: 60 mcg/kg/min, 33.84 mls/hr Propofol (Diprivan 100 Ml) Confirm Administered Dose 100 mls @ as directed .ROUTE .STK-MED ONE Stop: 11/29/18 13:01 Last Admin: 11/29/18 13:31 Dose: Not Given Levofloxacin/Dextrose 750 mg/ (Premix) 150 mls @ 100 mls/hr IV ONETIME ONE Stop: 11/29/18 14:55 Last Admin: 11/29/18 13:34 Dose: 100 mls/hr Ceftriaxone Sodium 1 gm/ (Sodium Chloride) 50 mls @ 100 mls/hr IV ONETIME ONE Stop: 11/29/18 13:59 Last Admin: 11/29/18 13:37 Dose: 100 mls/hr Ceftriaxone Sodium 2 gm/ (Sodium Chloride) 50 mls @ 100 mls/hr IV Q24H EVIN Last Admin: 12/01/18 12:56 Dose: 100 mls/hr Ceftriaxone Sodium 1 gm/ (Sodium Chloride) 50 mls @ 100 mls/hr IV ONETIME ONE Stop: 11/30/18 01:29 Last Admin: 11/30/18 00:50 Dose: 100 mls/hr Levofloxacin/Dextrose 750 mg/ (Premix) 150 mls @ 100 mls/hr IV Q48H EVIN Sodium Chloride (Normal Saline) 1,000 mls @ 125 mls/hr IV ASDIRECTED EVIN Last Admin: 11/30/18 04:25 Dose: 125 mls/hr Propofol (Diprivan 100 Ml) 100 mls @ 2.898 mls/hr IV TITRATE EVIN; Protocol Last Admin: 12/04/18 03:37 Dose: 35 mcg/kg/min, 20.289 mls/hr Potassium Chloride/Dextrose/Sod Cl (D5 Ns With 20 Meq Kcl) 1,000 mls @ 75 mls/ hr IV ASDIRECTED EVIN Last Admin: 12/03/18 05:50 Dose: 75 mls/hr Levofloxacin/Dextrose 750 mg/ (Premix) 150 mls @ 100 mls/hr IV Q24H EVIN Last Admin: 12/07/18 15:02 Dose: 100 mls/hr Heparin Sodium (Porcine) 5,000 (units/ Sodium Chloride) 501 mls @ 5 mls/hr IV ASDIRECTED EVIN Last Admin: 12/01/18 11:43 Dose: 5 mls/hr Potassium Chloride/Dextrose/Sod Cl (D5 Ns With 20 Meq Kcl) 1,000 mls @ 25 mls/ hr IV ASDIRECTED EVIN Last Admin: 12/04/18 14:10 Dose: 25 mls/hr Pantoprazole Sodium 80 mg/ (Sodium Chloride) 100 mls @ 10 mls/hr IV .Q10H EVIN Last Admin: 12/07/18 09:10 Dose: 10 mls/hr Sodium Chloride (Normal Saline) 1,000 mls @ 125 mls/hr IV ASDIRECTED [facility] Last Admin: 12/07/18 03:55 Dose: 125 mls/hr Magnesium Sulfate 2 gm/ Premix 50 mls @ 25 mls/hr IV ONETIME ONE Stop: 12/06/18 20:22 Last Admin: 12/06/18 20:49 Dose: 25 mls/hr Lorazepam (Ativan) 1 mg IVPUSH Q4H PRN PRN Reason: Nausea/Vomiting Last Admin: 12/07/18 15:11 Dose: 1 mg Methylprednisolone Sodium Succinate (Solu-Medrol) 125 mg IVPUSH ONETIME ONE Stop: 11/29/18 15:31 Last Admin: 11/29/18 15:51 Dose: 125 mg Methylprednisolone Sodium Succinate (Solu-Medrol) 62.5 mg IVPUSH Q8H [facility] Last Admin: 12/02/18 06:26 Dose: 62.5 mg Methylprednisolone Sodium Succinate (Solu-Medrol) 40 mg IVPUSH Q8H [facility] Last Admin: 12/06/18 05:07 Dose: 40 mg Methylprednisolone Sodium Succinate (Solu-Medrol) 40 mg IVPUSH Q12H [facility] Last Admin: 12/07/18 05:06 Dose: 40 mg Metoprolol Tartrate (Lopressor) 5 mg IVPUSH Q6H [facility] Last Admin: 12/05/18 03:40 Dose: 5 mg Naloxone HCl (Narcan) 0.4 mg IVPUSH ONETIME PRN PRN Reason: unresponsiveness Last Admin: 11/29/18 12:49 Dose: 0.4 mg Naloxone HCl (Narcan) Confirm Administered Dose 0.4 mg .ROUTE .STK-MED ONE Stop: 11/29/18 12:44 Last Admin: 11/30/18 19:23 Dose: Not Given Pantoprazole Sodium (Protonix Iv) 40 mg IV Q24H [facility] Last Admin: 12/04/18 16:20 Dose: 40 mg Pantoprazole Sodium (Protonix) 40 mg PO BIDAC [facility] Last Admin: 12/06/18 08:35 Dose: 40 mg Pantoprazole Sodium (Protonix Iv) 40 mg IVPUSH ONETIME ONE Stop: 12/06/18 13:01 Last Admin: 12/06/18 13:23 Dose: 40 mg Propofol (Diprivan 20 Ml) Confirm Administered Dose 200 mg .ROUTE .STK-MED ONE Stop: 12/07/18 13:32 Succinylcholine Chloride (Quelicin) 100 mg IV ONETIME ONE Stop: 11/29/18 13:03 Last Admin: 11/29/18 12:54 Dose: 100 mg Succinylcholine Chloride (Quelicin) Confirm Administered Dose 200 mg .ROUTE .STK -MED ONE Stop: 11/29/18 12:53 Last Admin: 11/30/18 19:23 Dose: Not Given - Exam Quality Assessment: Supplemental Oxygen, DVT Prophylaxis General: Alert, Oriented, Cooperative, No Acute Distress Lungs: Decreased Breath Sounds, Wheezing. No: Rales, Rhonchi Cardiovascular: Regular Rate, Regular Rhythm, No Murmurs GI/Abdominal Exam: Soft, Non-Tender, No Organomegaly, No Distention Extremities: Non-Tender, No Pedal Edema - Problem List Review Problem List Initiated/Reviewed/Updated: Yes - My Orders Last 24 Hours: My Active Orders 12/07/18 17:17 Convert IV to Saline Lock [OM.PC] Routine 12/07/18 17:30 Pantoprazole [ProTONIX IV] 40 mg IVPUSH Q12H 12/07/18 23:00 HGB [HEMOGLOBIN] [HEME] Stat 12/08/18 05:00 BASIC METABOLIC PANEL,BMP [CHEM] Timed CBC WITH AUTO DIFF [HEME] Timed MAGNESIUM [CHEM] Timed - Plan Plan:: ASSESSMENT AND PLAN - Left upper lobe pneumonia secondary to stenotrophomonas -Respiratory status stable since yesterday, adequate oxygenation on 2 L/m -continue IV trimethoprim/sulfamethoxazole (started 12/02) -supplement oxygen as needed -Discontinue IV steroids -Scheduled and as needed nebulizers Probable upper GI bleed-further drop in hemoglobin, no further melenic stool, EGD by Dr. Downing showed dark fluid within the stomach, approximately 1 L. No obvious source of bleeding or blood loss identified -Full liquid diet -Protonix 40 mg IV every 12 hours -Type and screen -Serial hemoglobin levels -Maintain 2 IV sites -Hold 2 units of red blood cells Acute on chronic hypoxic and hypercapnic respiratory failure-secondary to pneumonia and COPD exacerbation, stable status post extubation COPD with acute exacerbation - Respiratory status stable since extubation. -Management as above including steroids and nebulizers Stage III chronic kidney disease - creatinine up from yesterday likely secondary to diuresis -Continue to closely monitor fluid status and renal function Essential hypertension - unable to take medications at this time. Blood pressure remains moderately elevated but better with scheduled metoprolol. -Restart home antihypertensives -PRN hydralazine Maintenance issues - - DVT prophylaxis - enoxaparin - GI prophylaxis - PPI - Nutrition - full liquids - Mccall catheter - placed in the emergency room, still needs to remain in place in this critical patient. He remains extremely weak but I would anticipate that we can get the Mccall catheter out tomorrow. Disposition - I would anticipate discharge home versus the [facility] after the hospital stay Primary care physician - [place] [facility]
[2018-12-07] MEDS: Metoclopramide 10 MG/2 ML SDV IVPUSH SCH ×2 (17:41→22:22)
[2018-12-07] MEDS: Pantoprazole 40 MG Vial IVPUSH SCH (17:44)
[2018-12-07] MEDS: Albuterol 0.083% 2.5 MG/3 ML Neb Soln NEB PRN (20:53)
[2018-12-07] MEDS ORDERED: Furosemide 100 MG/10 ML SDV IVPUSH ONE (21:10)
[2018-12-07] MEDS ORDERED: Furosemide 100 MG/10 ML SDV ONE (21:12)
[2018-12-08] MEDS: Morphine 4 MG/ML Syringe IVPUSH PRN ×3 (00:42→21:24)
[2018-12-08] MEDS: Sulfamethoxazole/Trimethoprim 20 ML in Dextrose 5% in Water 500 ML IV SCH ×4 (01:56→10:13)
[2018-12-08] MEDS: Metoclopramide 10 MG/2 ML SDV IVPUSH SCH ×4 (04:28→21:07)
[2018-12-08] MEDS: Albuterol 0.083% 2.5 MG/3 ML Neb Soln NEB PRN ×2 (04:28→16:20)
[2018-12-08] MEDS: Pantoprazole 40 MG Vial IVPUSH SCH ×2 (04:57→17:24)
[2018-12-08] MEDS: Albuterol/Ipratropium 3.0-0.5 MG/3 ML Neb Soln NEB SCH ×4 (07:29→21:20)
[2018-12-08] MEDS: Formoterol/Mometasone 200-5 MCG 8.8 GM Inhaler IH SCH ×2 (07:35→21:17)
[2018-12-08] MEDS: busPIRone 10 MG Tab PO SCH ×2 (09:09→21:17)
[2018-12-08] MEDS: Hydrochlorothiazide 12.5 MG Cap PO SCH (09:09)
[2018-12-08] MEDS: Tamsulosin 0.4 MG Cap.ER PO SCH (09:09)
[2018-12-08] MEDS: Metoprolol Succinate 25 MG Tab.ER PO SCH ×2 (09:10→21:16)
[2018-12-08] MEDS: Methocarbamol 500 MG Tab PO SCH ×3 (09:10→21:16)
[2018-12-08] MEDS: Sertraline 50 MG Tab PO SCH ×2 (09:10→21:15)
[2018-12-08] MEDS: NIFEdipine 30 MG Tab.ER PO SCH ×2 (09:11→21:15)
[2018-12-08] MEDS: Finasteride 5 MG Tab PO SCH (09:11)
[2018-12-08] MEDS: Gabapentin 400 MG Cap PO SCH ×3 (09:11→21:16)
[2018-12-08] MEDS ORDERED: Bisacodyl 5 MG Tab PO ONE ×2 (10:46→20:00)
--- NOTE | 2018-12-08 11:02 | PCM.PN ---
- General Info Date of Service: 12/08/18 Subjective Update: Mr. Kumar experienced increased respiratory compromise last night with increased respiratory rate, decreased saturations, and sinus tachycardia. There was an element of anxiety associated he improved after he received IV furosemide and lorazepam. Hemoglobin continues to slowly drop, with no obvious source of blood loss identified yet. Discussed with Dr. Downing and will plan to proceed with colonoscopy in a.m. Initially this morning he was fairly sleepy and lethargic now more alert and interactive. - Review of Systems General: Denies: Fever, Chills Pulmonary: Reports: Shortness of Breath, Wheezing. Denies: Pleuritic Chest Pain , Cough, Sputum, Hemoptysis Cardiovascular: Reports: Dyspnea on Exertion, Edema. Denies: Chest Pain, Palpitations, Orthopnea, PND Gastrointestinal: Reports: Melena. Denies: Abdominal Pain, Diarrhea, Difficulty Swallowing - Patient Data Vitals - Most Recent: Last Vital Signs Temp 97.1 F 12/08/18 08:58 Pulse 110 H 12/08/18 10:42 Resp 16 12/08/18 10:00 BP 128/55 L 12/08/18 10:00 Pulse Ox 87 L 12/08/18 10:00 Weight - Most Recent: 212 lb 1.602 oz I&O - Last 24 Hours: Intake & Output 12/07/18 12/08/18 12/08/18 22:59 06:59 14:59 Intake Total 1995 1190 520 Output Total 950 950 Balance 1046 240 520 Lab Results Last 24 Hours: Laboratory Results - last 24 hr 12/07/18 12/07/18 12/07/18 Range/Units 11:53 16:58 23:00 WBC (4.5-11.0) K/uL RBC (4.30-5.90) M/uL Hgb 11.0 L 9.6 L 10.7 L (12.0-15.0) g/dL Hct (40.0-54.0) % MCV (80-98) fL MCH (27-31) pg MCHC (32-36) % Plt Count (150-400) K/uL Add Manual Diff Neutrophils % (Manual) (36-66) % Band Neutrophils % (5-11) % Lymphocytes % (Manual) (24-44) % Monocytes % (Manual) (2-6) % Sodium (140-148) mmol/L Potassium (3.6-5.2) mmol/L Chloride (100-108) mmol/L Carbon Dioxide (21-32) mmol/L Anion Gap (5.0-14.0) mmol/L BUN (7-18) mg/dL Creatinine (0.8-1.3) mg/dL Est Cr Clr Drug Dosing mL/min Estimated GFR (MDRD) (>60) Glucose (74-106) mg/dL Calcium (8.5-10.1) mg/dL Magnesium (1.8-2.4) mg/dL 12/08/18 12/08/18 Range/Units 05:52 05:52 WBC 24.1 H (4.5-11.0) K/uL RBC 3.02 L (4.30-5.90) M/uL Hgb 9.0 L (12.0-15.0) g/dL Hct 27.7 L (40.0-54.0) % MCV 92 (80-98) fL MCH 30 (27-31) pg MCHC 33 (32-36) % Plt Count 253 (150-400) K/uL Add Manual Diff Yes Neutrophils % (Manual) 84 H (36-66) % Band Neutrophils % 9 (5-11) % Lymphocytes % (Manual) 3 L (24-44) % Monocytes % (Manual) 4 (2-6) % Sodium 135 L (140-148) mmol/L Potassium 4.2 (3.6-5.2) mmol/L Chloride 101 (100-108) mmol/L Carbon Dioxide 26 (21-32) mmol/L Anion Gap 12.2 (5.0-14.0) mmol/L BUN 69 H (7-18) mg/dL Creatinine 2.2 H (0.8-1.3) mg/dL Est Cr Clr Drug Dosing 32.87 mL/min Estimated GFR (MDRD) 29 L (>60) Glucose 152 H (74-106) mg/dL Calcium 8.0 L (8.5-10.1) mg/dL Magnesium 2.1 (1.8-2.4) mg/dL Med Orders - Current: Current Medications Acetaminophen (Tylenol) 650 mg RECTAL Q4H PRN PRN Reason: Mild pain/fever Last Admin: 12/02/18 03:32 Dose: 650 mg Hydrocodone Bitart/Acetaminophen ([place] 325-10 Mg) 1 tab PO Q4H PRN PRN Reason: Pain (severe 7-10) Albuterol (Proventil Neb Soln) 2.5 mg NEB Q4H PRN PRN Reason: Shortness Of Breath/wheezing Last Admin: 12/08/18 04:28 Dose: 2.5 mg Albuterol (Ventolin Hfa) 0 gm INH Q4H PRN PRN Reason: Shortness of Breath Last Admin: 12/05/18 20:02 Dose: 2 puff Albuterol/Ipratropium (Duoneb 3.0-0.5 Mg/3 Ml) 3 ml NEB QIDRT [facility] Last Admin: 12/08/18 10:42 Dose: 3 ml Bisacodyl (Dulcolax) 10 mg PO ONETIME ONE Stop: 12/08/18 10:47 Bisacodyl (Dulcolax) 10 mg PO ONETIME ONE Stop: 12/08/18 20:01 Buspirone HCl (Buspar) 10 mg PO BID [facility] Last Admin: 12/08/18 09:09 Dose: 10 mg Clonazepam (Klonopin) 1.5 mg PO BID PRN PRN Reason: Anxiety Finasteride (Proscar) 5 mg PO DAILY [facility] Last Admin: 12/08/18 09:11 Dose: 5 mg Gabapentin (Neurontin) 400 mg PO TID [facility] Last Admin: 12/08/18 09:11 Dose: 400 mg Guaifenesin/Dextromethorphan (Robitussin Dm) 10 ml PO Q4H PRN PRN Reason: Cough Last Admin: 12/06/18 15:22 Dose: 10 ml Hydralazine HCl (Apresoline) 10 mg IVPUSH Q4H PRN PRN Reason: Hypertension Last Admin: 12/05/18 03:07 Dose: 10 mg Hydrochlorothiazide (Hydrochlorothiazide) 12.5 mg PO DAILY [facility] Last Admin: 12/08/18 09:09 Dose: 12.5 mg Lorazepam (Ativan) 0.5 mg IVPUSH Q4H PRN PRN Reason: Anxiety Methocarbamol (Robaxin) 500 mg PO TID [facility] Last Admin: 12/08/18 09:10 Dose: 500 mg Metoclopramide HCl (Reglan) 10 mg IVPUSH Q6H [facility] Last Admin: 12/08/18 09:12 Dose: 10 mg Metoprolol Succinate (Toprol Xl) 25 mg PO BID [facility] Last Admin: 12/08/18 09:10 Dose: 25 mg Mometasone Furoate/Formoterol Fumar (Dulera 200-5 Mcg) 2 puff IH BIDRT [facility] Last Admin: 12/08/18 07:35 Dose: 2 puff Morphine Sulfate (Morphine) 4 mg IVPUSH Q2H PRN PRN Reason: Pain Last Admin: 12/08/18 00:42 Dose: 4 mg Nifedipine (Procardia Xl) 60 mg PO BID [facility] Last Admin: 12/08/18 09:11 Dose: 60 mg Ondansetron HCl (Zofran Odt) 4 mg PO Q6H PRN PRN Reason: Nausea able to take PO Last Admin: 12/05/18 21:29 Dose: 4 mg Ondansetron HCl (Zofran) 4 mg IV Q6H PRN PRN Reason: Nausea/Vomiting Last Admin: 12/06/18 12:19 Dose: 4 mg Pantoprazole Sodium (Protonix Iv) 40 mg IVPUSH Q12H [facility] Last Admin: 12/08/18 04:57 Dose: 40 mg Polyethylene Glycol (Miralax) 17 gm PO DAILY PRN PRN Reason: Constipation Polyethylene Glycol (Miralax) 238 gm PO ONETIME ONE Stop: 12/08/18 17:01 Sertraline HCl (Zoloft) 100 mg PO BID [facility] Last Admin: 12/08/18 09:10 Dose: 100 mg Sodium Chloride ([place] Nasal [place]) 0 ml ST[place] Q2H PRN PRN Reason: Dryness Last Admin: 12/07/18 09:32 Dose: 2 applic Tamsulosin HCl (Flomax) 0.4 mg PO DAILY [facility] Last Admin: 12/08/18 09:09 Dose: 0.4 mg Discontinued Medications Acetylcysteine (Mucomyst 20%) 200 mg NEB TIDRT [facility] Last Admin: 12/05/18 06:27 Dose: 200 mg Enoxaparin Sodium (Lovenox) 40 mg SUBCUT DAILY [facility] Last Admin: 12/06/18 08:33 Dose: 40 mg Fentanyl (Sublimaze) 25 mcg IVPUSH Q2H PRN PRN Reason: Pain Furosemide (Lasix) 40 mg IVPUSH ONETIME ONE Stop: 12/03/18 10:01 Last Admin: 12/03/18 09:46 Dose: 40 mg Furosemide (Lasix) 20 mg IVPUSH ONETIME ONE Stop: 12/03/18 20:01 Last Admin: 12/03/18 19:17 Dose: 20 mg Furosemide (Lasix) 20 mg IVPUSH ONETIME ONE Stop: 12/04/18 10:16 Last Admin: 12/04/18 10:04 Dose: 20 mg Furosemide (Lasix) 20 mg IVPUSH ONETIME ONE Stop: 12/05/18 19:01 Last Admin: 12/05/18 20:09 Dose: 20 mg Furosemide (Lasix) 80 mg IVPUSH ONETIME ONE Stop: 12/07/18 21:11 Last Admin: 12/07/18 21:18 Dose: 80 mg Furosemide (Lasix) Confirm Administered Dose 100 mg .ROUTE .STK-MED ONE Stop: 12/07/18 21:13 Last Admin: 12/07/18 21:19 Dose: Not Given Hydralazine HCl (Apresoline) 10 mg IVPUSH ONETIME ONE Stop: 11/30/18 06:14 Last Admin: 11/30/18 06:26 Dose: 10 mg Propofol (Diprivan 100 Ml) 100 mls @ 3 mls/hr IV TITRATE EVIN; Protocol Stop: 11/29/18 17:55 Last Titration: 11/29/18 13:42 Dose: 60 mcg/kg/min, 33.84 mls/hr Propofol (Diprivan 100 Ml) Confirm Administered Dose 100 mls @ as directed .ROUTE .STK-MED ONE Stop: 11/29/18 13:01 Last Admin: 11/29/18 13:31 Dose: Not Given Levofloxacin/Dextrose 750 mg/ (Premix) 150 mls @ 100 mls/hr IV ONETIME ONE Stop: 11/29/18 14:55 Last Admin: 11/29/18 13:34 Dose: 100 mls/hr Ceftriaxone Sodium 1 gm/ (Sodium Chloride) 50 mls @ 100 mls/hr IV ONETIME ONE Stop: 11/29/18 13:59 Last Admin: 11/29/18 13:37 Dose: 100 mls/hr Ceftriaxone Sodium 2 gm/ (Sodium Chloride) 50 mls @ 100 mls/hr IV Q24H [facility] Last Admin: 12/01/18 12:56 Dose: 100 mls/hr Ceftriaxone Sodium 1 gm/ (Sodium Chloride) 50 mls @ 100 mls/hr IV ONETIME ONE Stop: 11/30/18 01:29 Last Admin: 11/30/18 00:50 Dose: 100 mls/hr Levofloxacin/Dextrose 750 mg/ (Premix) 150 mls @ 100 mls/hr IV Q48H [facility] Sodium Chloride (Normal Saline) 1,000 mls @ 125 mls/hr IV ASDIRECTED [facility] Last Admin: 11/30/18 04:25 Dose: 125 mls/hr Propofol (Diprivan 100 Ml) 100 mls @ 2.898 mls/hr IV TITRATE EVIN; Protocol Last Admin: 12/04/18 03:37 Dose: 35 mcg/kg/min, 20.289 mls/hr Potassium Chloride/Dextrose/Sod Cl (D5 Ns With 20 Meq Kcl) 1,000 mls @ 75 mls/ hr IV ASDIRECTED [facility] Last Admin: 12/03/18 05:50 Dose: 75 mls/hr Levofloxacin/Dextrose 750 mg/ (Premix) 150 mls @ 100 mls/hr IV Q24H [facility] Last Admin: 12/07/18 15:02 Dose: 100 mls/hr Heparin Sodium (Porcine) 5,000 (units/ Sodium Chloride) 501 mls @ 5 mls/hr IV ASDIRECTED [facility] Last Admin: 12/01/18 11:43 Dose: 5 mls/hr Trimethoprim/Sulfamethoxazole (20 ml/ Dextrose/Water) 520 mls @ 260 mls/hr IV Q8H [facility] Last Admin: 12/08/18 10:13 Dose: 260 mls/hr Potassium Chloride/Dextrose/Sod Cl (D5 Ns With 20 Meq Kcl) 1,000 mls @ 25 mls/ hr IV ASDIRECTED [facility] Last Admin: 12/04/18 14:10 Dose: 25 mls/hr Pantoprazole Sodium 80 mg/ (Sodium Chloride) 100 mls @ 10 mls/hr IV .Q10H [facility] Last Admin: 12/07/18 09:10 Dose: 10 mls/hr Sodium Chloride (Normal Saline) 1,000 mls @ 125 mls/hr IV ASDIRECTED [facility] Last Admin: 12/07/18 03:55 Dose: 125 mls/hr Magnesium Sulfate 2 gm/ Premix 50 mls @ 25 mls/hr IV ONETIME ONE Stop: 12/06/18 20:22 Last Admin: 12/06/18 20:49 Dose: 25 mls/hr Lorazepam (Ativan) 1 mg IVPUSH Q4H PRN PRN Reason: Nausea/Vomiting Last Admin: 12/07/18 15:11 Dose: 1 mg Methylprednisolone Sodium Succinate (Solu-Medrol) 125 mg IVPUSH ONETIME ONE Stop: 11/29/18 15:31 Last Admin: 11/29/18 15:51 Dose: 125 mg Methylprednisolone Sodium Succinate (Solu-Medrol) 62.5 mg IVPUSH Q8H [facility] Last Admin: 12/02/18 06:26 Dose: 62.5 mg Methylprednisolone Sodium Succinate (Solu-Medrol) 40 mg IVPUSH Q8H [facility] Last Admin: 12/06/18 05:07 Dose: 40 mg Methylprednisolone Sodium Succinate (Solu-Medrol) 40 mg IVPUSH Q12H [facility] Last Admin: 12/07/18 05:06 Dose: 40 mg Metoprolol Tartrate (Lopressor) 5 mg IVPUSH Q6H [facility] Last Admin: 12/05/18 03:40 Dose: 5 mg Naloxone HCl (Narcan) 0.4 mg IVPUSH ONETIME PRN PRN Reason: unresponsiveness Last Admin: 11/29/18 12:49 Dose: 0.4 mg Naloxone HCl (Narcan) Confirm Administered Dose 0.4 mg .ROUTE .STK-MED ONE Stop: 11/29/18 12:44 Last Admin: 11/30/18 19:23 Dose: Not Given Pantoprazole Sodium (Protonix Iv) 40 mg IV Q24H [facility] Last Admin: 12/04/18 16:20 Dose: 40 mg Pantoprazole Sodium (Protonix) 40 mg PO BIDAC [facility] Last Admin: 12/06/18 08:35 Dose: 40 mg Pantoprazole Sodium (Protonix Iv) 40 mg IVPUSH ONETIME ONE Stop: 12/06/18 13:01 Last Admin: 12/06/18 13:23 Dose: 40 mg Propofol (Diprivan 20 Ml) Confirm Administered Dose 200 mg .ROUTE .STK-MED ONE Stop: 12/07/18 13:32 Succinylcholine Chloride (Quelicin) 100 mg IV ONETIME ONE Stop: 11/29/18 13:03 Last Admin: 11/29/18 12:54 Dose: 100 mg Succinylcholine Chloride (Quelicin) Confirm Administered Dose 200 mg .ROUTE .STK -MED ONE Stop: 11/29/18 12:53 Last Admin: 11/30/18 19:23 Dose: Not Given - Exam Quality Assessment: Supplemental Oxygen, Urine Catheter, DVT Prophylaxis General: Alert, Oriented, Cooperative, Mild Distress Lungs: Decreased Breath Sounds, Wheezing. No: Rales, Rhonchi Cardiovascular: Regular Rhythm, No Murmurs, Tachycardia GI/Abdominal Exam: Soft, Non-Tender, No Organomegaly, No Distention Extremities: Non-Tender, Pedal Edema - Problem List Review Problem List Initiated/Reviewed/Updated: Yes - My Orders Last 24 Hours: My Active Orders 12/07/18 17:17 Convert IV to Saline Lock [OM.PC] Routine 12/07/18 17:30 Pantoprazole [ProTONIX IV] 40 mg IVPUSH Q12H 12/07/18 21:56 LORazepam [Ativan] 0.5 mg IVPUSH Q4H PRN 12/07/18 23:16 Bladder Scan [RC] ASDIRECTED 12/07/18 23:41 Urinary Catheter Assessment [RC] ASDIRECTED 12/07/18 23:45 Insert Mccall Catheter [Insert Urinary Catheter] [OM.PC] Q24H 12/08/18 10:46 Verify Patient Consent Obtain [RC] ASDIRECTED Bisacodyl [Dulcolax] 10 mg PO ONETIME ONE Schedule Procedure [COMM] Routine 12/08/18 10:48 Echo Comp wo Cont [US] Urgent 12/08/18 10:49 Chest 1V Frontal [CR] Urgent 12/08/18 11:00 HGB [HEMOGLOBIN] [HEME] Stat 12/08/18 17:00 HGB [HEMOGLOBIN] [HEME] Stat Polyethylene Glycol 3350 [MiraLAX] 238 gm PO ONETIME ONE 12/08/18 20:00 Bisacodyl [Dulcolax] 10 mg PO ONETIME ONE 12/08/18 23:00 HGB [HEMOGLOBIN] [HEME] Stat 12/08/18 Lunch Clear Liquid Diet [DIET] 12/09/18 05:00 BASIC METABOLIC PANEL,BMP [CHEM] Timed CBC WITH AUTO DIFF [HEME] Timed MAGNESIUM [CHEM] Timed 12/09/18 Breakfast NPO After Midnight [Nothing per Oral After Midnight Diet] [DIET] - Plan Plan:: ASSESSMENT AND PLAN - Left upper lobe pneumonia secondary to stenotrophomonas-stable with no evidence of ongoing infection, will plan to discontinue antibiotic therapy today's he's completed 6 days. White blood count elevated but I suspect this is secondary to stress related to respiratory compromise during the night. I'm concerned that the Septra may be contributing to aggressive renal insufficiency. -discontinue IV trimethoprim/sulfamethoxazole (started 12/02) -supplement oxygen as needed -Scheduled and as needed nebulizers Probable upper GI bleed-further drop in hemoglobin, EGD by Dr. Downing showed dark fluid within the stomach, approximately 1 L. No obvious source of bleeding or blood loss identified. Because of progressive decrease in hemoglobin we'll plan to proceed with colonoscopy in a.m. -Clear liquid diet, nothing by mouth after midnight -Colonoscopy prep and colonoscopy in a.m. -Protonix 40 mg IV every 12 hours -Serial hemoglobin levels -Maintain 2 IV sites -Hold 2 units of red blood cells Acute on chronic hypoxic and hypercapnic respiratory failure-secondary to pneumonia and COPD exacerbation, stable status post extubation. Increased shortness of breath last night with increasing respiratory rate, decreased oxygen saturation, and tachycardia. Stabilized with use of IV furosemide and lorazepam -Chest x-ray now -Echocardiogram to assess left ventricular function and valvular status COPD with acute exacerbation Stage III chronic kidney disease - creatinine continues to slowly increase -Discontinue Septra as above -Continue to closely monitor fluid status and renal function Essential hypertension - unable to take medications at this time. Blood pressure remains moderately elevated but better with scheduled metoprolol. -Restart home antihypertensives -PRN hydralazine Maintenance issues - - DVT prophylaxis - enoxaparin - GI prophylaxis - PPI - Nutrition - full liquids - Mccall catheter - placed in the emergency room, still needs to remain in place in this critical patient. He remains extremely weak but I would anticipate that we can get the Mccall catheter out tomorrow. Disposition - I would anticipate discharge home versus the fpc after the hospital stay Primary care physician - [place] [facility]
--- NOTE | 2018-12-08 11:16 | OR ---
DATE OF PROCEDURE: 12/07/2018 PREOPERATIVE DIAGNOSIS: Recent emesis with coffee-ground type material. POSTOPERATIVE DIAGNOSES: 1. Moderate-sized hiatal hernia (4 cm). 2. Large volume of "coffee-ground" like material in the stomach (1000 mL). 3. No obvious esophagitis, gastritis, duodenitis, or ulcers to account for the patient's coffee-ground material (no active bleeding seen). OPERATIVE PROCEDURES: 1. Esophagogastroduodenoscopy with evacuation of large volume of fluid from the esophagus and stomach (98478). 2. Biopsies of antrum for CLOtest (07335). ANESTHESIA: IV sedation. INDICATION FOR PROCEDURE: This 73-year-old had a protracted hospitalization, had an episode of emesis of coffee-ground type material yesterday. The plan is to proceed with upper GI endoscopy for diagnostic purposes. Potential risks including bleeding and perforation were discussed, and the patient wishes to proceed. DETAILS OF PROCEDURE: The patient was taken to the operating room and placed in a left lateral decubitus position. IV sedation was administered, after which the upper GI endoscope was passed orally and initially into the esophagus and thereafter through the EG junction and into the stomach with retroflexion view of the fundus, and to the junction of the third and fourth portions of the duodenum. The most striking finding was that of a very large volume of dark brown or ac fluid within the stomach, around 1000 mL was evacuated. Fortunately, the patient did not have any episodes of aspiration. The alvarado of the distal esophagus and stomach were more or less coated with that type material. The patient did have a moderate-sized hiatal hernia. Careful examination, however, failed to reveal any obvious mucosal sites for any bleeding within the esophagus, stomach, or duodenum. It was possible that some of the areas that were coated with the dark brown or ac material contained some focal areas of inflammation and were not visible despite multiple areas being washed off more or less to see the underlying mucosa. Once all the fluid was evacuated and the examination completed, biopsies were obtained from the antrum and sent for CLOtest for H. pylori. Minimal bleeding from the biopsy site was seen, and the procedure then concluded. The patient was taken to the recovery room in a satisfactory condition. we will start the patient on some Reglan in an attempt to augment gastric emptying. The patient obviously has some degree of gastroparesis at this point, which may be related to the underlying type 2 diabetes. Esdras Downing MD Job #: [id number]
--- NOTE | 2018-12-08 11:39 | CR ---
CHEST: Portable CLINICAL HISTORY:Dyspnea COMPARISON:12/04/2018 FINDINGS: Endotracheal tube is been removed.. There is increase in lung markings on the left when compared to the prior studies. Left lower lobe pneumonia is not excluded. Heart size and pulmonary vascularity appear normal. There are atherosclerotic changes in the aorta. Impression: Increase lung markings in the mid and lower left lung when compared to prior study is suspect for a left lower lobe pneumonia.
[2018-12-08] MEDS ORDERED: Vancomycin 1 GM SDV IV SCH (15:00)
[2018-12-08] MEDS: Acetaminophen/HYDROcodone 325-10 MG Tab PO PRN (15:09)
[2018-12-08] MEDS: Piperacillin/Tazobactam/Dext 3.375 GM in Premix Bag 1 BAG IV SCH ×2 (15:09→21:05)
[2018-12-08] MEDS: Lactobacillus Rhamnosus GG (Probiotic) Cap PO SCH ×2 (15:57→21:15)
[2018-12-08] MEDS ORDERED: Levofloxacin/Dextrose 5%-Water 750 MG in Premix Bag 1 BAG IV SCH (17:00)
[2018-12-08] MEDS ORDERED: Polyethylene Glycol 3350 Powder 238 GM Bot PO ONE (17:00)
[2018-12-09] MEDS: Morphine 4 MG/ML Syringe IVPUSH PRN ×3 (00:37→13:31)
[2018-12-09] MEDS: Piperacillin/Tazobactam/Dext 3.375 GM in Premix Bag 1 BAG IV SCH ×5 (03:04→22:45)
[2018-12-09] MEDS: Metoclopramide 10 MG/2 ML SDV IVPUSH SCH ×4 (03:05→22:45)
[2018-12-09] MEDS: Pantoprazole 40 MG Vial IVPUSH SCH ×2 (05:34→18:29)
[2018-12-09] MEDS: Albuterol/Ipratropium 3.0-0.5 MG/3 ML Neb Soln NEB SCH ×4 (07:05→22:17)
[2018-12-09] MEDS: Formoterol/Mometasone 200-5 MCG 8.8 GM Inhaler IH SCH ×2 (07:05→22:44)
[2018-12-09] MEDS: Lactobacillus Rhamnosus GG (Probiotic) Cap PO SCH ×2 (09:27→22:10)
[2018-12-09] MEDS: Tamsulosin 0.4 MG Cap.ER PO SCH (09:27)
[2018-12-09] MEDS: busPIRone 10 MG Tab PO SCH ×2 (09:27→22:11)
[2018-12-09] MEDS: Finasteride 5 MG Tab PO SCH (09:28)
[2018-12-09] MEDS: Hydrochlorothiazide 12.5 MG Cap PO SCH (09:28)
[2018-12-09] MEDS: Methocarbamol 500 MG Tab PO SCH ×3 (09:28→22:12)
[2018-12-09] MEDS: Gabapentin 400 MG Cap PO SCH ×3 (09:28→22:10)
[2018-12-09] MEDS: NIFEdipine 30 MG Tab.ER PO SCH ×2 (09:28→22:10)
[2018-12-09] MEDS: Sertraline 50 MG Tab PO SCH ×2 (09:29→22:11)
[2018-12-09] MEDS: Metoprolol Succinate 25 MG Tab.ER PO SCH ×2 (09:29→22:11)
--- NOTE | 2018-12-09 10:27 | PCM.PN ---
- General Info Date of Service: 12/09/18 Subjective Update: Mr. Kumar has had ongoing difficulty with GI bleeding and decreased hemoglobin level. He was transfused 1 unit of red blood cells yesterday. Chest x-ray obtained yesterday shows evidence of a new left lung infiltrate. Cultures were obtained and because this was likely hospital-acquired pneumonia he is been started on broad-spectrum IV antibiotic therapy with vancomycin, levofloxacin, and Zosyn. Respiratory status has been stable but he has required increased level of supplemental oxygen currently on a simple mask. Functional Status: Reports: Urinating - Review of Systems General: Reports: Weakness. Denies: Fever, Chills Pulmonary: Reports: Shortness of Breath, Cough, Wheezing. Denies: Pleuritic Chest Pain, Sputum, Hemoptysis Cardiovascular: Reports: Dyspnea on Exertion. Denies: Chest Pain, Palpitations , Orthopnea, PND, Edema Gastrointestinal: Reports: Decreased Appetite, Melena. Denies: Abdominal Pain, Difficulty Swallowing, Nausea, Vomiting - Patient Data Vitals - Most Recent: Last Vital Signs Temp 97.7 F 12/09/18 06:00 Pulse 96 12/09/18 07:05 Resp 14 12/09/18 06:00 BP 92/45 L 12/09/18 06:00 Pulse Ox 94 L 12/09/18 06:27 Weight - Most Recent: 212 lb 1.602 oz I&O - Last 24 Hours: Intake & Output 12/08/18 12/09/18 12/09/18 22:59 06:59 14:59 Intake Total 350 580 Output Total 1050 1200 Balance -700 -620 Lab Results Last 24 Hours: Laboratory Results - last 24 hr 12/06/18 12/08/18 12/08/18 Range/Units 12:45 11:00 17:00 WBC (4.5-11.0) K/uL RBC (4.30-5.90) M/uL Hgb 9.8 L 8.4 L (12.0-15.0) g/dL Hct (40.0-54.0) % MCV (80-98) fL MCH (27-31) pg MCHC (32-36) % Plt Count (150-400) K/uL Neut % (Auto) (36-66) % Lymph % (Auto) (24-44) % Whiteside % (Auto) (2-6) % Eos % (Auto) (2-4) % Baso % (Auto) (0-1) % Sodium (140-148) mmol/L Potassium (3.6-5.2) mmol/L Chloride (100-108) mmol/L Carbon Dioxide (21-32) mmol/L Anion Gap (5.0-14.0) mmol/L BUN (7-18) mg/dL Creatinine (0.8-1.3) mg/dL Est Cr Clr Drug Dosing mL/min Estimated GFR (MDRD) (>60) Glucose (74-106) mg/dL Calcium (8.5-10.1) mg/dL Magnesium (1.8-2.4) mg/dL Blood Type O POSITIVE Gel Antibody Screen Negative Crossmatch See Detail 12/08/18 12/09/18 12/09/18 Range/Units 23:00 04:50 04:50 WBC 22.5 H (4.5-11.0) K/uL RBC 3.08 L (4.30-5.90) M/uL Hgb 10.0 L 9.3 L (12.0-15.0) g/dL Hct 28.0 L (40.0-54.0) % MCV 91 (80-98) fL MCH 30 (27-31) pg MCHC 33 (32-36) % Plt Count 250 (150-400) K/uL Neut % (Auto) 94 H (36-66) % Lymph % (Auto) 2 L (24-44) % Whiteside % (Auto) 4 (2-6) % Eos % (Auto) 0 L (2-4) % Baso % (Auto) 0 (0-1) % Sodium 136 L (140-148) mmol/L Potassium 3.6 (3.6-5.2) mmol/L Chloride 101 (100-108) mmol/L Carbon Dioxide 27 (21-32) mmol/L Anion Gap 11.6 (5.0-14.0) mmol/L BUN 64 H (7-18) mg/dL Creatinine 2.2 H (0.8-1.3) mg/dL Est Cr Clr Drug Dosing 32.87 mL/min Estimated GFR (MDRD) 29 L (>60) Glucose 109 H (74-106) mg/dL Calcium 8.4 L (8.5-10.1) mg/dL Magnesium 2.1 (1.8-2.4) mg/dL Blood Type Gel Antibody Screen Crossmatch Melvin Results Last 24 Hours: Microbiology 12/07/18 13:45 CLOtest - Final Stomach NEGATIVE CLOTEST Med Orders - Current: Current Medications Acetaminophen (Tylenol) 650 mg RECTAL Q4H PRN PRN Reason: Mild pain/fever Last Admin: 12/02/18 03:32 Dose: 650 mg Hydrocodone Bitart/Acetaminophen ([place] 325-10 Mg) 1 tab PO Q4H PRN PRN Reason: Pain (severe 7-10) Last Admin: 12/08/18 15:09 Dose: 1 tab Albuterol (Proventil Neb Soln) 2.5 mg NEB Q4H PRN PRN Reason: Shortness Of Breath/wheezing Last Admin: 12/08/18 16:20 Dose: 2.5 mg Albuterol (Ventolin Hfa) 0 gm INH Q4H PRN PRN Reason: Shortness of Breath Last Admin: 12/05/18 20:02 Dose: 2 puff Albuterol/Ipratropium (Duoneb 3.0-0.5 Mg/3 Ml) 3 ml NEB QIDRT [facility] Last Admin: 12/09/18 07:05 Dose: 3 ml Buspirone HCl (Buspar) 10 mg PO BID [facility] Last Admin: 12/09/18 09:27 Dose: Not Given Clonazepam (Klonopin) 1.5 mg PO BID PRN PRN Reason: Anxiety Finasteride (Proscar) 5 mg PO DAILY [facility] Last Admin: 12/09/18 09:28 Dose: Not Given Gabapentin (Neurontin) 400 mg PO TID [facility] Last Admin: 12/09/18 09:28 Dose: Not Given Guaifenesin/Dextromethorphan (Robitussin Dm) 10 ml PO Q4H PRN PRN Reason: Cough Last Admin: 12/06/18 15:22 Dose: 10 ml Hydralazine HCl (Apresoline) 10 mg IVPUSH Q4H PRN PRN Reason: Hypertension Last Admin: 12/05/18 03:07 Dose: 10 mg Hydrochlorothiazide (Hydrochlorothiazide) 12.5 mg PO DAILY [facility] Last Admin: 12/09/18 09:28 Dose: Not Given Levofloxacin/Dextrose 750 mg/ (Premix) 150 mls @ 100 mls/hr IV Q48H [facility] Last Admin: 12/08/18 17:24 Dose: 100 mls/hr Piperacillin/Tazobactam/ (Dextrose 3.375 gm/ Premix) 50 mls @ 100 mls/hr IV Q6H [facility] Last Admin: 12/09/18 10:04 Dose: 100 mls/hr Vancomycin HCl 1.5 gm/ Sodium (Chloride) 250 mls @ 250 mls/hr IV Q24H [facility] Last Admin: 12/08/18 15:50 Dose: 250 mls/hr Lactobacillus Rhamnosus (Culturelle) 1 cap PO BID [facility] Last Admin: 12/09/18 09:27 Dose: Not Given Lorazepam (Ativan) 0.5 mg IVPUSH Q4H PRN PRN Reason: Anxiety Methocarbamol (Robaxin) 500 mg PO TID [facility] Last Admin: 12/09/18 09:28 Dose: Not Given Metoclopramide HCl (Reglan) 10 mg IVPUSH Q6H [facility] Last Admin: 12/09/18 10:14 Dose: 10 mg Metoprolol Succinate (Toprol Xl) 25 mg PO BID [facility] Last Admin: 12/09/18 09:29 Dose: Not Given Mometasone Furoate/Formoterol Fumar (Dulera 200-5 Mcg) 2 puff IH BIDRT [facility] Last Admin: 12/09/18 07:05 Dose: 2 puff Morphine Sulfate (Morphine) 4 mg IVPUSH Q2H PRN PRN Reason: Pain Last Admin: 12/09/18 03:50 Dose: 4 mg Nifedipine (Procardia Xl) 60 mg PO BID [facility] Last Admin: 12/09/18 09:28 Dose: Not Given Ondansetron HCl (Zofran Odt) 4 mg PO Q6H PRN PRN Reason: Nausea able to take PO Last Admin: 12/05/18 21:29 Dose: 4 mg Ondansetron HCl (Zofran) 4 mg IV Q6H PRN PRN Reason: Nausea/Vomiting Last Admin: 12/06/18 12:19 Dose: 4 mg Pantoprazole Sodium (Protonix Iv) 40 mg IVPUSH Q12H [facility] Last Admin: 12/09/18 05:34 Dose: 40 mg Polyethylene Glycol (Miralax) 17 gm PO DAILY PRN PRN Reason: Constipation Sertraline HCl (Zoloft) 100 mg PO BID [facility] Last Admin: 12/09/18 09:29 Dose: Not Given Sodium Chloride ([place] Nasal Avis) 0 ml STUART Q2H PRN PRN Reason: Dryness Last Admin: 12/07/18 09:32 Dose: 2 applic Tamsulosin HCl (Flomax) 0.4 mg PO DAILY [facility] Last Admin: 12/09/18 09:27 Dose: Not Given Discontinued Medications Acetylcysteine (Mucomyst 20%) 200 mg NEB TIDRT [facility] Last Admin: 12/05/18 06:27 Dose: 200 mg Bisacodyl (Dulcolax) 10 mg PO ONETIME ONE Stop: 12/08/18 10:47 Last Admin: 12/08/18 11:57 Dose: 10 mg Bisacodyl (Dulcolax) 10 mg PO ONETIME ONE Stop: 12/08/18 20:01 Last Admin: 12/08/18 19:30 Dose: 10 mg Enoxaparin Sodium (Lovenox) 40 mg SUBCUT DAILY [facility] Last Admin: 12/06/18 08:33 Dose: 40 mg Fentanyl (Sublimaze) 25 mcg IVPUSH Q2H PRN PRN Reason: Pain Furosemide (Lasix) 40 mg IVPUSH ONETIME ONE Stop: 12/03/18 10:01 Last Admin: 12/03/18 09:46 Dose: 40 mg Furosemide (Lasix) 20 mg IVPUSH ONETIME ONE Stop: 12/03/18 20:01 Last Admin: 12/03/18 19:17 Dose: 20 mg Furosemide (Lasix) 20 mg IVPUSH ONETIME ONE Stop: 12/04/18 10:16 Last Admin: 12/04/18 10:04 Dose: 20 mg Furosemide (Lasix) 20 mg IVPUSH ONETIME ONE Stop: 12/05/18 19:01 Last Admin: 12/05/18 20:09 Dose: 20 mg Furosemide (Lasix) 80 mg IVPUSH ONETIME ONE Stop: 12/07/18 21:11 Last Admin: 12/07/18 21:18 Dose: 80 mg Furosemide (Lasix) Confirm Administered Dose 100 mg .ROUTE .STK-MED ONE Stop: 12/07/18 21:13 Last Admin: 12/07/18 21:19 Dose: Not Given Hydralazine HCl (Apresoline) 10 mg IVPUSH ONETIME ONE Stop: 11/30/18 06:14 Last Admin: 11/30/18 06:26 Dose: 10 mg Propofol (Diprivan 100 Ml) 100 mls @ 3 mls/hr IV TITRATE EVIN; Protocol Stop: 11/29/18 17:55 Last Titration: 11/29/18 13:42 Dose: 60 mcg/kg/min, 33.84 mls/hr Propofol (Diprivan 100 Ml) Confirm Administered Dose 100 mls @ as directed .ROUTE .STK-MED ONE Stop: 11/29/18 13:01 Last Admin: 11/29/18 13:31 Dose: Not Given Levofloxacin/Dextrose 750 mg/ (Premix) 150 mls @ 100 mls/hr IV ONETIME ONE Stop: 11/29/18 14:55 Last Admin: 11/29/18 13:34 Dose: 100 mls/hr Ceftriaxone Sodium 1 gm/ (Sodium Chloride) 50 mls @ 100 mls/hr IV ONETIME ONE Stop: 11/29/18 13:59 Last Admin: 11/29/18 13:37 Dose: 100 mls/hr Ceftriaxone Sodium 2 gm/ (Sodium Chloride) 50 mls @ 100 mls/hr IV Q24H EVIN Last Admin: 12/01/18 12:56 Dose: 100 mls/hr Ceftriaxone Sodium 1 gm/ (Sodium Chloride) 50 mls @ 100 mls/hr IV ONETIME ONE Stop: 11/30/18 01:29 Last Admin: 11/30/18 00:50 Dose: 100 mls/hr Levofloxacin/Dextrose 750 mg/ (Premix) 150 mls @ 100 mls/hr IV Q48H EVIN Sodium Chloride (Normal Saline) 1,000 mls @ 125 mls/hr IV ASDIRECTED EVIN Last Admin: 11/30/18 04:25 Dose: 125 mls/hr Propofol (Diprivan 100 Ml) 100 mls @ 2.898 mls/hr IV TITRATE EVIN; Protocol Last Admin: 12/04/18 03:37 Dose: 35 mcg/kg/min, 20.289 mls/hr Potassium Chloride/Dextrose/Sod Cl (D5 Ns With 20 Meq Kcl) 1,000 mls @ 75 mls/ hr IV ASDIRECTED EVIN Last Admin: 12/03/18 05:50 Dose: 75 mls/hr Levofloxacin/Dextrose 750 mg/ (Premix) 150 mls @ 100 mls/hr IV Q24H [facility] Last Admin: 12/07/18 15:02 Dose: 100 mls/hr Heparin Sodium (Porcine) 5,000 (units/ Sodium Chloride) 501 mls [facility] Last Admin: 12/01/18 11:43 Dose: 5 mls/hr Trimethoprim/Sulfamethoxazole (20 ml/ Dextrose/Water) 520 mls @ 260 mls/hr IV Q8H [facility] Last Admin: 12/08/18 10:13 Dose: 260 mls/hr Potassium Chloride/Dextrose/Sod Cl (D5 Ns With 20 Meq Kcl) 1,000 mls @ 25 mls/ [facility] Last Admin: 12/04/18 14:10 Dose: 25 mls/hr Pantoprazole Sodium 80 mg/ (Sodium Chloride) 100 mls @ 10 mls/hr IV .Q10H [facility] Last Admin: 12/07/18 09:10 Dose: 10 mls/hr Sodium Chloride (Normal Saline) 1,000 mls @ 125 [facility] Last Admin: 12/07/18 03:55 Dose: 125 mls/hr Magnesium Sulfate 2 gm/ Premix 50 mls @ 25 mls/hr IV ONETIME ONE Stop: 12/06/18 20:22 Last Admin: 12/06/18 20:49 Dose: 25 mls/hr Lorazepam (Ativan) 1 mg IVPUSH Q4H PRN PRN Reason: Nausea/Vomiting Last Admin: 12/07/18 15:11 Dose: 1 mg Methylprednisolone Sodium Succinate (Solu-Medrol) 125 mg IVPUSH ONETIME ONE Stop: 11/29/18 15:31 Last Admin: 11/29/18 15:51 Dose: 125 mg Methylprednisolone Sodium Succinate (Solu-Medrol) 62.5 mg IVPUSH Q8H [facility] Last Admin: 12/02/18 06:26 Dose: 62.5 mg Methylprednisolone Sodium Succinate (Solu-Medrol) 40 mg IVPUSH Q8H [facility] Last Admin: 12/06/18 05:07 Dose: 40 mg Methylprednisolone Sodium Succinate (Solu-Medrol) 40 mg IVPUSH Q12H [facility] Last Admin: 12/07/18 05:06 Dose: 40 mg Metoprolol Tartrate (Lopressor) 5 mg IVPUSH Q6H [facility] Last Admin: 12/05/18 03:40 Dose: 5 mg Naloxone HCl (Narcan) 0.4 mg IVPUSH ONETIME PRN PRN Reason: unresponsiveness Last Admin: 11/29/18 12:49 Dose: 0.4 mg Naloxone HCl (Narcan) Confirm Administered Dose 0.4 mg .ROUTE .STK-MED ONE Stop: 11/29/18 12:44 Last Admin: 11/30/18 19:23 Dose: Not Given Pantoprazole Sodium (Protonix Iv) 40 mg IV Q24H [facility] Last Admin: 12/04/18 16:20 Dose: 40 mg Pantoprazole Sodium (Protonix) 40 mg PO BIDAC [facility] Last Admin: 12/06/18 08:35 Dose: 40 mg Pantoprazole Sodium (Protonix Iv) 40 mg IVPUSH ONETIME ONE Stop: 12/06/18 13:01 Last Admin: 12/06/18 13:23 Dose: 40 mg Polyethylene Glycol (Miralax) 238 gm PO ONETIME ONE Stop: 12/08/18 17:01 Last Admin: 12/08/18 17:24 Dose: 238 gm Propofol (Diprivan 20 Ml) Confirm Administered Dose 200 mg .ROUTE .STK-MED ONE Stop: 12/07/18 13:32 Succinylcholine Chloride (Quelicin) 100 mg IV ONETIME ONE Stop: 11/29/18 13:03 Last Admin: 11/29/18 12:54 Dose: 100 mg Succinylcholine Chloride (Quelicin) Confirm Administered Dose 200 mg .ROUTE .STK -MED ONE Stop: 11/29/18 12:53 Last Admin: 11/30/18 19:23 Dose: Not Given - Exam Quality Assessment: Supplemental Oxygen, Urine Catheter, DVT Prophylaxis General: Alert, Oriented, Cooperative, Mild Distress Lungs: Decreased Breath Sounds, Rhonchi, Wheezing. No: Rales, Rub Cardiovascular: Regular Rate, Regular Rhythm, No Murmurs GI/Abdominal Exam: Soft, Non-Tender, No Organomegaly, No Distention Extremities: Non-Tender, No Pedal Edema - Problem List Review Problem List Initiated/Reviewed/Updated: Yes - My Orders Last 24 Hours: My Active Orders 12/08/18 10:46 Verify Patient Consent Obtain [RC] ASDIRECTED Schedule Procedure [COMM] Routine 12/08/18 10:48 Echo Comp wo Cont [US] Urgent 12/08/18 14:06 Blood Culture x2 Reflex Set [OM.PC] Urgent 12/08/18 14:07 CULTURE RESPIRATORY + SMEAR [RM] Routine 12/08/18 14:13 Dietary Supplements [RC] BIDMEALS 12/08/18 14:30 CULTURE BLOOD [BC] Stat 12/08/18 14:35 CULTURE BLOOD [BC] Stat 12/08/18 15:00 Piperacillin/Tazobactam/Dext [Zosyn in Dextrose Iso-Osmotic 3.375 GM] 3.375 gm Premix Bag 1 bag IV Q6H 12/08/18 16:00 Lactobacillus Rhamnosus GG [Culturelle] 1 cap PO BID Vancomycin 1.5 gm Sodium Chloride 0.9% [Normal Saline] 250 ml IV Q24H 12/08/18 17:00 Levofloxacin/Dextrose 5%-Water [Levaquin in D5W 750 MG/150 ML] 750 mg Premix Bag 1 bag IV Q48H 12/08/18 17:33 Transfuse Red Blood Cells [COMM] Urgent 12/09/18 08:00 Echo Comp wo Cont [US] Urgent 12/09/18 17:00 HGB [HEMOGLOBIN] [HEME] Stat 12/09/18 Breakfast NPO After Midnight [Nothing per Oral After Midnight Diet] [DIET] 12/10/18 05:00 BASIC METABOLIC PANEL,BMP [CHEM] Timed CBC WITH AUTO DIFF [HEME] Timed MAGNESIUM [CHEM] Timed - Plan Plan:: ASSESSMENT AND PLAN - HCAP-new infiltrate in the left lung identified on chest x-ray obtained yesterday -Blood and sputum cultures pending -Continue broad-spectrum IV antibiotic coverage with vancomycin, levofloxacin, and Zosyn, pending culture results -supplement oxygen as needed -Scheduled and as needed nebulizers GI bleed-further drop in hemoglobin, EGD by Dr. Downing showed dark fluid within the stomach, approximately 1 L. No obvious source of bleeding or blood loss identified. Because of progressive decrease in hemoglobin we'll plan to proceed with colonoscopy today - nothing by mouth pending colonoscopy -Protonix 40 mg IV every 12 hours -Serial hemoglobin levels -Maintain 2 IV sites -Hold 2 units of red blood cells Acute on chronic hypoxic and hypercapnic respiratory failure-current respiratory compromise requiring increased oxygen support secondary to new left lung infiltrate -Echocardiogram pending today COPD with acute exacerbation Stage III chronic kidney disease - Creatinine stable from yesterday but still elevated from baseline -Discontinue Septra -Continue to closely monitor fluid status and renal function Essential hypertension - unable to take medications at this time. Blood pressure remains moderately elevated but better with scheduled metoprolol. -Restart home antihypertensives -PRN hydralazine Maintenance issues - - DVT prophylaxis - enoxaparin - GI prophylaxis - PPI - Nutrition - full liquids - Mccall catheter - placed in the emergency room, still needs to remain in place in this critical patient. He remains extremely weak but I would anticipate that we can get the Mccall catheter out tomorrow. Disposition - I would anticipate discharge home versus the [facility] after the hospital stay Primary care physician - [place] [facility]
[2018-12-09] MEDS ORDERED: Propofol 200 MG/20 ML SDV ONE ×2 (11:55→12:27)
[2018-12-09] MEDS ORDERED: Lidocaine 2% Jelly 10 ML Urojet ONE (12:00)
[2018-12-09] MEDS: guaiFENesin/Dextromethorphan 100-10 MG/5 ML Soln 10 ML Cup PO PRN (14:10)
[2018-12-09] MEDS: LORazepam 2 MG/ML SDV IVPUSH PRN ×2 (15:47→23:21)
[2018-12-09] MEDS: Acetaminophen/HYDROcodone 325-10 MG Tab PO PRN (15:47)
[2018-12-10] MEDS: Piperacillin/Tazobactam/Dext 3.375 GM in Premix Bag 1 BAG IV SCH ×3 (02:36→14:48)
[2018-12-10] MEDS: Metoclopramide 10 MG/2 ML SDV IVPUSH SCH ×2 (04:31→09:55)
[2018-12-10] MEDS: Pantoprazole 40 MG Vial IVPUSH SCH (04:37)
[2018-12-10] MEDS: Formoterol/Mometasone 200-5 MCG 8.8 GM Inhaler IH SCH (07:32)
[2018-12-10] MEDS: Albuterol/Ipratropium 3.0-0.5 MG/3 ML Neb Soln NEB SCH ×2 (07:32→10:58)
[2018-12-10] MEDS: NIFEdipine 30 MG Tab.ER PO SCH (09:07)
[2018-12-10] MEDS: Methocarbamol 500 MG Tab PO SCH ×2 (09:07→13:56)
[2018-12-10] MEDS: Lactobacillus Rhamnosus GG (Probiotic) Cap PO SCH (09:07)
[2018-12-10] MEDS: Hydrochlorothiazide 12.5 MG Cap PO SCH (09:08)
[2018-12-10] MEDS: Tamsulosin 0.4 MG Cap.ER PO SCH (09:09)
[2018-12-10] MEDS: Gabapentin 400 MG Cap PO SCH ×2 (09:09→13:56)
[2018-12-10] MEDS: Metoprolol Succinate 25 MG Tab.ER PO SCH (09:10)
[2018-12-10] MEDS: busPIRone 10 MG Tab PO SCH (09:10)
[2018-12-10] MEDS: Sertraline 50 MG Tab PO SCH (09:10)
[2018-12-10] MEDS: Finasteride 5 MG Tab PO SCH (09:11)
[2018-12-10] MEDS: Acetaminophen/HYDROcodone 325-10 MG Tab PO PRN ×2 (10:31→13:56)
[2018-12-10 14:02] VITALS: BP 106/52
--- NOTE | 2018-12-10 14:06 | PCM.DCSUM1 ---
Discharge Summary - Hospital Course Brief History: Mr. Kumar is a 73-year-old gentleman who was admitted through the emergency department with acute on chronic respiratory failure secondary to underlying pneumonia and COPD exacerbation. - Discharge Data Discharge Date: 12/10/18 Discharge Disposition: DC/Tfer to Acute Hospital 02 Condition: Poor - Discharge Diagnosis/Problem(s) (1) GI bleed SNOMED Code(s): 63301087 ICD Code: K92.2 - GASTROINTESTINAL HEMORRHAGE, UNSPECIFIED Status: Acute Current Visit: Yes (2) Acute on chronic respiratory failure with hypoxia and hypercapnia SNOMED Code(s): 71265914738035 ICD Code: J96.21 - ACUTE AND CHRONIC RESPIRATORY FAILURE WITH HYPOXIA; J96.22 - ACUTE AND CHRONIC RESPIRATORY FAILURE WITH HYPERCAPNIA Status: Acute Current Visit: Yes (3) Pneumonia SNOMED Code(s): 269361864 ICD Code: J18.9 - PNEUMONIA, UNSPECIFIED ORGANISM Status: Acute Current Visit: Yes Problem Details: Stenotrophomonas maltophilia (4) CKD (chronic kidney disease), stage III SNOMED Code(s): 856172530 ICD Code: N18.3 - CHRONIC KIDNEY DISEASE, STAGE 3 (MODERATE) Status: Chronic Current Visit: Yes (5) COPD exacerbation SNOMED Code(s): 690866419 ICD Code: J44.1 - CHRONIC OBSTRUCTIVE PULMONARY DISEASE W (ACUTE) EXACERBATION Status: Acute Current Visit: Yes (6) Diabetes mellitus SNOMED Code(s): 26135484 ICD Code: E11.9 - TYPE 2 DIABETES MELLITUS WITHOUT COMPLICATIONS Status: Chronic Current Visit: No (7) CAD (coronary artery disease) SNOMED Code(s): 85537959 ICD Code: I25.10 - ATHSCL HEART DISEASE OF [place] CORONARY ARTERY W/O ANG PCTRS Status: Chronic Current Visit: No - Patient Summary/Data Consults: Consultations 12/06/18 07:00 PT Evaluation and Treatment [CONS] Routine Please Evaluate and Treat. PT Reason for Consult: Strengthening This query below is only for informational purposes and is not editable. Admission Diagnosis/Problem: Pneumonia Hospital Course: Mr. Kumar came to the emergency room by ambulance after his home health nurse found him sitting on the toilet unresponsive. He is intubated and sedated and unable to provide any history at this time. History is gathered from emergency room personnel. They report that paramedics noted he was very wheezy in route he did receive a DuoNeb. He was mostly unresponsive and did not respond to Narcan when he got here. He was promptly intubated. Blood gases suggested respiratory failure with hypoxia and hypercapnia. Chest x-ray suggested a left lung infiltrate. Antibiotics have been initiated. He was admitted to the intensive care unit. On admission he was placed on mechanical ventilation and given IV fluids for hydration. Cultures were obtained and he was started on IV antibiotic therapy with levofloxacin and ceftriaxone. He gradually improved over the next 5 days of hospitalization and was able to be extubated on 04 December. Endotracheal aspiration had grown out Stenotrophomonas maltophilia, and antibiotic therapy was switched to IV Septra. During this period of time he did have some increased shortness of breath which was felt to be secondary to fluid overload and did improve with diuretic therapy. Diuretic therapy was complicated by worsening renal function with an increase in creatinine level from baseline. Diuretic therapy was discontinued and he was given cautious hydration. Despite this renal function continued to worsen and there was concern that the Septra may be contributing to progressive renal insufficiency. IV Septra was discontinued after one week of therapy and renal function had started to improve by the time of transfer. His hospital course was further complicated by a GI bleed which started on December 06. He had a large coffee-ground emesis followed by a running melenic-appearing stool. Serial hemoglobins were obtained and he did experience a significant drop and ultimately required transfusion of a total of 3 units of red blood cells. Hemoglobin had remained fairly stable for 3 days prior to transfer. Upper GI endoscopy was performed by Dr. Downing on 07 December, there was a large amount of dark liquid within the lumen of the stomach which was removed. No obvious source of blood loss or lesions were identified on the EGD. He underwent a colonoscopy prep and colonoscopy was performed on 09 December, this showed evidence of diverticulosis but no obvious source of recent blood loss. The evening of the he did develop increased respiratory compromise requiring placement of a mask for improved oxygenation. Chest x-ray was obtained and showed evidence of new left lower lung infiltrate. Blood and sputum cultures were obtained and he was started on a new course of broad-spectrum IV antibiotic therapy including vancomycin, Zosyn, and levofloxacin cover for HCAP. White blood cell count had almost normalized prior to this but did increase to 22-24,000 over the next few days and remained elevated in this range at the time of transfer. He had had no significant temperature elevation and respiratory status remained stable with adequate oxygenation on supplemental oxygen via simple mask. Mr. Kumar is a primary [facility] patient with full VA benefits. [facility] system was notified of his admission, but had no available beds at that time. They requested that he be transferred to their system when beds became available. They are able to accept him in transfer today and he will be sent to the [facility] in [place] via [facility] ambulance. - Patient Instructions Diet: Low Sodium, Diabetic Diet Activity: As Tolerated Other/Special Instructions: Patient will be transferred to the [facility] in [facility] via [facility] ambulance. - Discharge Plan *PRESCRIPTION DRUG MONITORING PROGRAM REVIEWED*: Not Applicable *COPY OF PRESCRIPTION DRUG MONITORING REPORT IN PATIENT TASHI: Not Applicable Home Medications: Home Meds Albuterol Sulfate [Albuterol Sulfate HFA] 2 ea IH Q6H 08/02/14 [History] Methocarbamol 500 mg PO TID 08/02/14 [History] Potassium Chloride 20 meq PO BID 08/02/14 [History] Ranitidine [Zantac] 150 mg PO DAILY 08/02/14 [History] Simvastatin [Zocor] 5 mg PO QPM 08/02/14 [History] Gabapentin [Neurontin] 400 mg PO TID 05/28/15 [History] Hydrochlorothiazide 12.5 mg PO DAILY 05/28/15 [History] Hydrocodone/Acetaminophen [Cutler 10-325] 1 tab PO Q8H PRN 05/28/15 [History] Sertraline [Zoloft] 100 mg PO BID 05/28/15 [History] Calcium Carbonate [Tums] 200 mg PO ASDIRECTED 06/11/17 [History] Cholecalciferol (Vitamin D3) [Vitamin D3] 1,000 unit PO BID 06/11/17 [History] Finasteride 5 mg PO DAILY 06/11/17 [History] Fluticasone/Salmeterol [Advair Diskus 500-50] 1 puff INH Q12H 06/11/17 [History] NIFEdipine [Nifedipine ER] 60 mg PO BID 06/11/17 [History] Tamsulosin HCl [Flomax] 0.4 mg PO DAILY 06/11/17 [History] hydrOXYzine HCl [hydrOXYzine] 50 mg PO BEDTIME 06/11/17 [History] Furosemide [Lasix] 10 mg PO DAILY 10/09/18 [History] Naloxone HCl [Narcan] 2 spray STUART ASDIRECTED PRN 10/09/18 [History] Omeprazole 20 mg PO BID 10/09/18 [History] busPIRone [Buspar] 10 mg PO BID 10/09/18 [History] guaiFENesin [Siltussin SA] 200 mg PO TID 10/09/18 [History] Albuterol [Proventil Neb Soln] 2.5 dose INH Q4H 12/01/18 [History] Metoprolol Succinate [Toprol XL] 25 mg PO BID 12/01/18 [History] Tiotropium [Spiriva HandiHaler] 1 cap INH DAILY 12/01/18 [History] clonazePAM [Klonopin] 1.5 mg PO BID PRN 12/01/18 [History] Lactobacillus Rhamnosus GG [Culturelle] 1 cap PO BID cap 12/10/18 [Rx] Levofloxacin/Dextrose 5%-Water [Levaquin in D5W 750 MG/150 ML] 750 mg IV Q48H bag 12/10/18 [Rx] Pantoprazole [ProTONIX IV] 40 mg IVPUSH Q12H vial 12/10/18 [Rx] Piperacillin/Tazobactam/Dext [Zosyn in Dextrose Iso-Osmotic 3.375 GM] 3.375 gm IV Q6H bag 12/10/18 [Rx] Vancomycin 1.5 gm IV Q24H sdv 12/10/18 [Rx] Oxygen Therapy Mode: Simple Mask - Discharge Summary/Plan Comment DC Time >30 min.: No - Patient Data Vitals - Most Recent: Last Vital Signs Temp 98.1 F 12/10/18 12:00 Pulse 95 12/10/18 14:00 Resp 16 12/10/18 14:00 BP 106/52 L 12/10/18 13:00 Pulse Ox 91 L 12/10/18 14:00 Weight - Most Recent: 212 lb 1.602 oz I&O - Last 24 hours: Intake & Output 12/09/18 12/10/18 12/10/18 22:59 06:59 14:59 Intake Total 350 396 600 Output Total 1200 1025 Balance -850 -629 600 Lab Results - Last 24 hrs: Laboratory Results - last 24 hr 12/06/18 12/09/18 12/10/18 Range/Units 12:45 17:00 05:00 WBC 24.3 H (4.5-11.0) K/uL RBC 3.15 L (4.30-5.90) M/uL Hgb 10.3 L 9.6 L (12.0-15.0) g/dL Hct 28.8 L (40.0-54.0) % MCV 91 (80-98) fL MCH 31 (27-31) pg MCHC 33 (32-36) % Plt Count 292 (150-400) K/uL Neut % (Auto) 93 H (36-66) % Lymph % (Auto) 2 L (24-44) % [place] % (Auto) 5 (2-6) % Eos % (Auto) 0 L (2-4) % Baso % (Auto) 0 (0-1) % Sodium (140-148) mmol/L Potassium (3.6-5.2) mmol/L Chloride (100-108) mmol/L Carbon Dioxide (21-32) mmol/L Anion Gap (5.0-14.0) mmol/L BUN (7-18) mg/dL Creatinine (0.8-1.3) mg/dL Est Cr Clr Drug Dosing mL/min Estimated GFR (MDRD) (>60) Glucose (74-106) mg/dL Calcium (8.5-10.1) mg/dL Magnesium (1.8-2.4) mg/dL Blood Type O POSITIVE Gel Antibody Screen Negative Crossmatch See Detail 12/10/18 Range/Units 05:00 WBC (4.5-11.0) K/uL RBC (4.30-5.90) M/uL Hgb (12.0-15.0) g/dL Hct (40.0-54.0) % MCV (80-98) fL MCH (27-31) pg MCHC (32-36) % Plt Count (150-400) K/uL Neut % (Auto) (36-66) % Lymph % (Auto) (24-44) % [place] % (Auto) (2-6) % Eos % (Auto) (2-4) % Baso % (Auto) (0-1) % Sodium 140 (140-148) mmol/L Potassium 3.6 (3.6-5.2) mmol/L Chloride 104 (100-108) mmol/L Carbon Dioxide 25 (21-32) mmol/L Anion Gap 10.7 (5.0-14.0) mmol/L BUN 51 H (7-18) mg/dL Creatinine 1.9 H (0.8-1.3) mg/dL Est Cr Clr Drug Dosing 38.06 mL/min Estimated GFR (MDRD) 35 L (>60) Glucose 79 (74-106) mg/dL Calcium 9.1 (8.5-10.1) mg/dL Magnesium 2.2 (1.8-2.4) mg/dL Blood Type Gel Antibody Screen Crossmatch PAPI Results - Last 24 hrs: Microbiology 12/10/18 00:01 Gram Stain - Final Sputum - Expectorated 12/08/18 14:35 Aerobic Blood Culture - Preliminary Blood - Arterial Line - Direct Stick NO GROWTH AFTER 1 DAY Anaerobic Blood Culture - Preliminary NO GROWTH AFTER 1 DAY 12/08/18 14:30 Aerobic Blood Culture - Preliminary Blood - Arm, Left NO GROWTH AFTER 1 DAY Anaerobic Blood Culture - Preliminary NO GROWTH AFTER 1 DAY Med Orders - Current: Current Medications Acetaminophen (Tylenol) 650 mg RECTAL Q4H PRN PRN Reason: Mild pain/fever Last Admin: 12/02/18 03:32 Dose: 650 mg Hydrocodone Bitart/Acetaminophen (Cutler 325-10 Mg) 1 tab PO Q4H PRN PRN Reason: Pain (severe 7-10) Last Admin: 12/10/18 13:56 Dose: 1 tab Albuterol (Proventil Neb Soln) 2.5 mg NEB Q4H PRN PRN Reason: Shortness Of Breath/wheezing Last Admin: 12/08/18 16:20 Dose: 2.5 mg Albuterol (Ventolin Hfa) 0 gm INH Q4H PRN PRN Reason: Shortness of Breath Last Admin: 12/05/18 20:02 Dose: 2 puff Albuterol/Ipratropium (Duoneb 3.0-0.5 Mg/3 Ml) 3 ml NEB QIDRT [facility] Last Admin: 12/10/18 10:58 Dose: 3 ml Buspirone HCl (Buspar) 10 mg PO BID [facility] Last Admin: 12/10/18 09:10 Dose: 10 mg Clonazepam (Klonopin) 1.5 mg PO BID PRN PRN Reason: Anxiety Finasteride (Proscar) 5 mg PO DAILY [facility] Last Admin: 12/10/18 09:11 Dose: 5 mg Gabapentin (Neurontin) 400 mg PO TID [facility] Last Admin: 12/10/18 13:56 Dose: 400 mg Guaifenesin/Dextromethorphan (Robitussin Dm) 10 ml PO Q4H PRN PRN Reason: Cough Last Admin: 12/09/18 14:10 Dose: 10 ml Hydralazine HCl (Apresoline) 10 mg IVPUSH Q4H PRN PRN Reason: Hypertension Last Admin: 12/05/18 03:07 Dose: 10 mg Hydrochlorothiazide (Hydrochlorothiazide) 12.5 mg PO DAILY [facility] Last Admin: 12/10/18 09:08 Dose: 12.5 mg Levofloxacin/Dextrose 750 mg/ (Premix) 150 mls @ 100 mls/hr IV Q48H [facility] Last Admin: 12/08/18 17:24 Dose: 100 mls/hr Piperacillin/Tazobactam/ (Dextrose 3.375 gm/ Premix) 50 mls @ 100 mls/hr IV Q6H [facility] Last Admin: 12/10/18 09:26 Dose: 100 mls/hr Vancomycin HCl 1.5 gm/ Sodium (Chloride) 250 mls @ 250 mls/hr IV Q24H [facility] Last Admin: 12/09/18 16:35 Dose: 250 mls/hr Lactobacillus Rhamnosus (Culturelle) 1 cap PO BID [facility] Last Admin: 12/10/18 09:07 Dose: 1 cap Lorazepam (Ativan) 0.5 mg IVPUSH Q4H PRN PRN Reason: Anxiety Last Admin: 12/09/18 23:21 Dose: 0.5 mg Methocarbamol (Robaxin) 500 mg PO TID [facility] Last Admin: 12/10/18 13:56 Dose: 500 mg Metoclopramide HCl (Reglan) 10 mg IVPUSH Q6H [facility] Last Admin: 12/10/18 09:55 Dose: 10 mg Metoprolol Succinate (Toprol Xl) 25 mg PO BID [facility] Last Admin: 12/10/18 09:10 Dose: 25 mg Mometasone Furoate/Formoterol Fumar (Dulera 200-5 Mcg) 2 puff IH BIDRT [facility] Last Admin: 12/10/18 07:32 Dose: 2 puff Morphine Sulfate (Morphine) 4 mg IVPUSH Q2H PRN PRN Reason: Pain Last Admin: 12/09/18 13:31 Dose: 4 mg Nifedipine (Procardia Xl) 60 mg PO BID [facility] Last Admin: 12/10/18 09:07 Dose: 60 mg Ondansetron HCl (Zofran Odt) 4 mg PO Q6H PRN PRN Reason: Nausea able to take PO Last Admin: 12/05/18 21:29 Dose: 4 mg Ondansetron HCl (Zofran) 4 mg IV Q6H PRN PRN Reason: Nausea/Vomiting Last Admin: 12/06/18 12:19 Dose: 4 mg Pantoprazole Sodium (Protonix Iv) 40 mg IVPUSH Q12H [facility] Last Admin: 12/10/18 04:37 Dose: 40 mg Polyethylene Glycol (Miralax) 17 gm PO DAILY PRN PRN Reason: Constipation Sertraline HCl (Zoloft) 100 mg PO BID [facility] Last Admin: 12/10/18 09:10 Dose: 100 mg Sodium Chloride ([place] Nasal [place]) 0 ml STUART Q2H PRN PRN Reason: Dryness Last Admin: 12/07/18 09:32 Dose: 2 applic Tamsulosin HCl (Flomax) 0.4 mg PO DAILY [facility] Last Admin: 12/10/18 09:09 Dose: 0.4 mg Discontinued Medications Acetylcysteine (Mucomyst 20%) 200 mg NEB TIDRT [facility] Last Admin: 12/05/18 06:27 Dose: 200 mg Bisacodyl (Dulcolax) 10 mg PO ONETIME ONE Stop: 12/08/18 10:47 Last Admin: 12/08/18 11:57 Dose: 10 mg Bisacodyl (Dulcolax) 10 mg PO ONETIME ONE Stop: 12/08/18 20:01 Last Admin: 12/08/18 19:30 Dose: 10 mg Enoxaparin Sodium (Lovenox) 40 mg SUBCUT DAILY [facility] Last Admin: 12/06/18 08:33 Dose: 40 mg Fentanyl (Sublimaze) 25 mcg IVPUSH Q2H PRN PRN Reason: Pain Furosemide (Lasix) 40 mg IVPUSH ONETIME ONE Stop: 12/03/18 10:01 Last Admin: 12/03/18 09:46 Dose: 40 mg Furosemide (Lasix) 20 mg IVPUSH ONETIME ONE Stop: 12/03/18 20:01 Last Admin: 12/03/18 19:17 Dose: 20 mg Furosemide (Lasix) 20 mg IVPUSH ONETIME ONE Stop: 12/04/18 10:16 Last Admin: 12/04/18 10:04 Dose: 20 mg Furosemide (Lasix) 20 mg IVPUSH ONETIME ONE Stop: 12/05/18 19:01 Last Admin: 12/05/18 20:09 Dose: 20 mg Furosemide (Lasix) 80 mg IVPUSH ONETIME ONE Stop: 12/07/18 21:11 Last Admin: 12/07/18 21:18 Dose: 80 mg Furosemide (Lasix) Confirm Administered Dose 100 mg .ROUTE .STK-MED ONE Stop: 12/07/18 21:13 Last Admin: 12/07/18 21:19 Dose: Not Given Hydralazine HCl (Apresoline) 10 mg IVPUSH ONETIME ONE Stop: 11/30/18 06:14 Last Admin: 11/30/18 06:26 Dose: 10 mg Propofol (Diprivan 100 Ml) 100 mls @ 3 mls/hr IV TITRATE EVIN; Protocol Stop: 11/29/18 17:55 Last Titration: 11/29/18 13:42 Dose: 60 mcg/kg/min, 33.84 mls/hr Propofol (Diprivan 100 Ml) Confirm Administered Dose 100 mls @ as directed .ROUTE .STK-MED ONE Stop: 11/29/18 13:01 Last Admin: 11/29/18 13:31 Dose: Not Given Levofloxacin/Dextrose 750 mg/ (Premix) 150 mls @ 100 mls/hr IV ONETIME ONE Stop: 11/29/18 14:55 Last Admin: 11/29/18 13:34 Dose: 100 mls/hr Ceftriaxone Sodium 1 gm/ (Sodium Chloride) 50 mls @ 100 mls/hr IV ONETIME ONE Stop: 11/29/18 13:59 Last Admin: 11/29/18 13:37 Dose: 100 mls/hr Ceftriaxone Sodium 2 gm/ (Sodium Chloride) 50 mls @ 100 mls/hr IV Q24H [facility] Last Admin: 12/01/18 12:56 Dose: 100 mls/hr Ceftriaxone Sodium 1 gm/ (Sodium Chloride) 50 mls @ 100 mls/hr IV ONETIME ONE Stop: 11/30/18 01:29 Last Admin: 11/30/18 00:50 Dose: 100 mls/hr Levofloxacin/Dextrose 750 mg/ (Premix) 150 mls @ 100 mls/hr IV Q48H [facility] Sodium Chloride (Normal Saline) 1,000 mls @ 125 mls/hr IV ASDIRECTED [facility] Last Admin: 11/30/18 04:25 Dose: 125 mls/hr Propofol (Diprivan 100 Ml) 100 mls @ 2.898 mls/hr IV TITRATE EVIN; Protocol Last Admin: 12/04/18 03:37 Dose: 35 mcg/kg/min, 20.289 mls/hr Potassium Chloride/Dextrose/Sod Cl (D5 Ns With 20 Meq Kcl) 1,000 mls @ 75 mls/ hr IV ASDIRECTED [facility] Last Admin: 12/03/18 05:50 Dose: 75 mls/hr Levofloxacin/Dextrose 750 mg/ (Premix) 150 mls @ 100 mls/hr IV Q24H [facility] Last Admin: 12/07/18 15:02 Dose: 100 mls/hr Heparin Sodium (Porcine) 5,000 (units/ Sodium Chloride) 501 mls @ 5 mls/hr IV ASDIRECTED [facility] Last Admin: 12/01/18 11:43 Dose: 5 mls/hr Trimethoprim/Sulfamethoxazole (20 ml/ Dextrose/Water) 520 mls @ 260 mls/hr IV Q8H [facility] Last Admin: 12/08/18 10:13 Dose: 260 mls/hr Potassium Chloride/Dextrose/Sod Cl (D5 Ns With 20 Meq Kcl) 1,000 mls @ 25 mls/ hr IV ASDIRECTED [facility] Last Admin: 12/04/18 14:10 Dose: 25 mls/hr Pantoprazole Sodium 80 mg/ (Sodium Chloride) 100 mls @ 10 mls/hr IV .Q10H [facility] Last Admin: 12/07/18 09:10 Dose: 10 mls/hr Sodium Chloride (Normal Saline) 1,000 mls @ 125 mls/hr IV ASDIRECTED [facility] Last Admin: 12/07/18 03:55 Dose: 125 mls/hr Magnesium Sulfate 2 gm/ Premix 50 mls @ 25 mls/hr IV ONETIME ONE Stop: 12/06/18 20:22 Last Admin: 12/06/18 20:49 Dose: 25 mls/hr Lidocaine HCl (Xylocaine 2% Jelly) Confirm Administered Dose 10 ml .ROUTE .STK- MED ONE Stop: 12/09/18 12:01 Last Admin: 12/09/18 12:10 Dose: 10 ml Lorazepam (Ativan) 1 mg IVPUSH Q4H PRN PRN Reason: Nausea/Vomiting Last Admin: 12/07/18 15:11 Dose: 1 mg Methylprednisolone Sodium Succinate (Solu-Medrol) 125 mg IVPUSH ONETIME ONE Stop: 11/29/18 15:31 Last Admin: 11/29/18 15:51 Dose: 125 mg Methylprednisolone Sodium Succinate (Solu-Medrol) 62.5 mg IVPUSH Q8H [facility] Last Admin: 12/02/18 06:26 Dose: 62.5 mg Methylprednisolone Sodium Succinate (Solu-Medrol) 40 mg IVPUSH Q8H [facility] Last Admin: 12/06/18 05:07 Dose: 40 mg Methylprednisolone Sodium Succinate (Solu-Medrol) 40 mg IVPUSH Q12H [facility] Last Admin: 12/07/18 05:06 Dose: 40 mg Metoprolol Tartrate (Lopressor) 5 mg IVPUSH Q6H [facility] Last Admin: 12/05/18 03:40 Dose: 5 mg Naloxone HCl (Narcan) 0.4 mg IVPUSH ONETIME PRN PRN Reason: unresponsiveness Last Admin: 11/29/18 12:49 Dose: 0.4 mg Naloxone HCl (Narcan) Confirm Administered Dose 0.4 mg .ROUTE .STK-MED ONE Stop: 11/29/18 12:44 Last Admin: 11/30/18 19:23 Dose: Not Given Pantoprazole Sodium (Protonix Iv) 40 mg IV Q24H [facility] Last Admin: 12/04/18 16:20 Dose: 40 mg Pantoprazole Sodium (Protonix) 40 mg PO BIDAC [facility] Last Admin: 12/06/18 08:35 Dose: 40 mg Pantoprazole Sodium (Protonix Iv) 40 mg IVPUSH ONETIME ONE Stop: 12/06/18 13:01 Last Admin: 12/06/18 13:23 Dose: 40 mg Polyethylene Glycol (Miralax) 238 gm PO ONETIME ONE Stop: 12/08/18 17:01 Last Admin: 12/08/18 17:24 Dose: 238 gm Propofol (Diprivan 20 Ml) Confirm Administered Dose 200 mg .ROUTE .STK-MED ONE Stop: 12/07/18 13:32 Propofol (Diprivan 20 Ml) Confirm Administered Dose 200 mg .ROUTE .STK-MED ONE Stop: 12/09/18 11:56 Propofol (Diprivan 20 Ml) Confirm Administered Dose 200 mg .ROUTE .STK-MED ONE Stop: 12/09/18 12:28 Succinylcholine Chloride (Quelicin) 100 mg IV ONETIME ONE Stop: 11/29/18 13:03 Last Admin: 11/29/18 12:54 Dose: 100 mg Succinylcholine Chloride (Quelicin) Confirm Administered Dose 200 mg .ROUTE .STK -MED ONE Stop: 11/29/18 12:53 Last Admin: 11/30/18 19:23 Dose: Not Given - Exam Quality Assessment: Reports: Supplemental Oxygen, Urine Catheter, DVT Prophylaxis General: Reports: Alert, Oriented, Cooperative, Mild Distress Lungs: Reports: Decreased Breath Sounds, Rhonchi, Wheezing. Denies: Rales, Rub Cardiovascular: Reports: Regular Rate, Regular Rhythm, No Murmurs GI/Abdominal Exam: Soft, Non-Tender, No Organomegaly, No Distention Back Exam: Reports: Normal Inspection, Full Range of Motion Extremities: Non-Tender, Pedal Edema
--- NOTE | 2018-12-12 12:56 | OR ---
DATE OF PROCEDURE: 12/09/2018 PREOPERATIVE DIAGNOSIS: History of rectal bleeding. POSTOPERATIVE DIAGNOSES: 1. Left-sided diverticulosis with no apparent blood or bleeding seen on colonoscopy. 2. History of large volume of gastric fluid retention with inability to pass nasogastric tube. OPERATIVE PROCEDURES: 1. Esophagogastroduodenoscopy. 2. Flexible colonoscopy. ANESTHESIA: IV sedation. INDICATION FOR PROCEDURE: A 73-year-old male presenting with history of some rectal bleeding. The patient, 2 days ago, had an upper endoscopy which was associated with a very large amount of old ac liquid present, which was more than a liter, in the stomach and esophagus, otherwise, no specific pathology was seen. With recurrent continued rectal bleeding, the patient at this time is to undergo colonoscopy. Our intent was, after some initial sedation with the patient in a sitting position, to place a nasogastric tube, which was initially not able to be performed. Given this, we initiated the procedure with upright sitting upper endoscopy to evacuate the contents that might be within the stomach to limit risk of pulmonary aspiration. Potential risks of the procedure including bleeding, infection, aspiration of gastric contents, and such were all reviewed, and the patient wishes to proceed. DETAILS OF PROCEDURE: The patient was taken to the operating room and placed in a semi- sitting position. Initially, some IV sedation was given per the Anesthesia staff and attempted placement of the nasogastric tube. This was not able to be passed as the patient gagged and was somewhat resistant. Given this, an additional sedation was administered. Upper GI endoscope was then passed orally through the length of the esophagus and into the stomach. Surprisingly, the stomach at this time was entirely empty indicating that the Reglan that the patient was started on probably had been helpful with regard to initiation of more adequate gastric emptying. At this time, with none of the ac staining that was present before, more complete examination of the upper GI tract from the hypopharynx to the junction of the third and fourth portions of the duodenum was able to be accomplished, and at this time, no areas of inflammation, erosions, or ulcers were seen in any of those locations. The upper GI endoscope was then withdrawn as the air was evacuated from the stomach. The patient was taken to the colonoscopy. The initial digital rectal exam was performed and was unremarkable. The patient did have a large amount of green liquid stool present, but eventually we were able to get a reasonably good complete examination of the colon with the colonoscope being passed to the level of the cecum. The patient was noted to have some left-sided diverticulosis, but no blood or bleeding at any point seen, and there were no areas of stricturing, polyps, or other signs of neoplasia. Scope was then withdrawn, and the procedure then concluded. By history, it is possible that the patient's rectal bleeding may be from the diverticular disease, which has now obviously stopped. Esdras Downing MD Job #: [id number]
== END 2018-12-10 14:45 | DRG 981 ==
LOC: JP.ED 12:49 → JP.ICU 13:59
PROVIDERS: ADMIT Internal Medicine; ATTEND Hospitalist
PROC: 0BH17EZ Insertion of Endotracheal Airway into Trachea, Via Natural or Artificial Opening (ICD-10-PCS; principal; 2018-11-29)
PROC: 5A1935Z Respiratory Ventilation, Less than 24 Consecutive Hours (ICD-10-PCS; 2018-11-29)
PROC: 03HC33Z Insertion of Infusion Device into Left Radial Artery, Percutaneous Approach (ICD-10-PCS; 2018-12-01)
PROC: 5A1945Z Respiratory Ventilation, 24-96 Consecutive Hours (ICD-10-PCS; 2018-12-02)
PROC: 0D938ZZ Drainage of Lower Esophagus, Via Natural or Artificial Opening Endoscopic (ICD-10-PCS; 2018-12-07)
PROC: 0D968ZZ Drainage of Stomach, Via Natural or Artificial Opening Endoscopic (ICD-10-PCS; 2018-12-07)
PROC: 0DB78ZX Excision of Stomach, Pylorus, Via Natural or Artificial Opening Endoscopic, Diagnostic (ICD-10-PCS; 2018-12-07)
PROC: 30233N1 Transfusion of Nonautologous Red Blood Cells into Peripheral Vein, Percutaneous Approach (ICD-10-PCS; 2018-12-08)
PROC: 0DJ08ZZ Inspection of Upper Intestinal Tract, Via Natural or Artificial Opening Endoscopic (ICD-10-PCS; 2018-12-09)
PROC: 0DJD8ZZ Inspection of Lower Intestinal Tract, Via Natural or Artificial Opening Endoscopic (ICD-10-PCS; 2018-12-09)
DX: J18.9 Pneumonia, unspecified organism (principal); J15.6 Pneumonia due to other Gram-negative bacteria; J96.01 Acute respiratory failure with hypoxia; J96.02 Acute respiratory failure with hypercapnia; I12.9 Hypertensive chronic kidney disease with stage 1 through stage 4 chronic kidney disease, or unspecified chronic kidney disease; J96.21 Acute and chronic respiratory failure with hypoxia; J96.22 Acute and chronic respiratory failure with hypercapnia; K57.31 Diverticulosis of large intestine without perforation or abscess with bleeding; J44.1 Chronic obstructive pulmonary disease with (acute) exacerbation; I13.0 Hypertensive heart and chronic kidney disease with heart failure and stage 1 through stage 4 chronic kidney disease, or unspecified chronic kidney disease; R41.82 Altered mental status, unspecified; R55 Syncope and collapse; D62 Acute posthemorrhagic anemia; I50.9 Heart failure, unspecified; E11.22 Type 2 diabetes mellitus with diabetic chronic kidney disease; N18.3 Chronic kidney disease, stage 3 (moderate); Z79.891 Long term (current) use of opiate analgesic; K44.9 Diaphragmatic hernia without obstruction or gangrene; E87.70 Fluid overload, unspecified; M19.90 Unspecified osteoarthritis, unspecified site; H54.7 Unspecified visual loss; H91.90 Unspecified hearing loss, unspecified ear; Z91.048 Other nonmedicinal substance allergy status; K31.89 Other diseases of stomach and duodenum
CPT/HCPCS: 31500 ×2; 36415; 36600; 70450 ×2; 71045 ×2; 80053; 81001; 82803; 84484; 85025; 87070; 87077; 87186; 87205; 93005; 93010; 94002; 96365; 96368; 96375; 99285; 99291; J0330; J0696; J1956; J2310; J2704; J7050; 36430; 51701; 51702; 51798; 80048; 82272; 83735; 85018; 85027; 85610; 86850; 86900; 86901; 86920; 86922; 87040; 87081; 93306; 94003; 94640; 94799; 96367; A9270-GY; C9113; J0360; J1644; J1650; J1940; J2060; J2270; J2405; J2543; J2765; J2920; J2930; J3370; J3475; J3480; J3490; J7030; J7040; J7620-GY; P9016; S0039